=== PATIENT | female | born 1960 | race Caucasian/White ===

== ENCOUNTER 2020-04-19 11:34 | Inpatient (IN) | payer MEDICARE, MEDICAID, SELFPAY ==
[2020-04-19] VITALS (16 sets, daily range): BP systolic 117–161; BP diastolic 45–84; PULSE 56–95; RESP 14–26; TEMP 36.1–36.6; O2SAT 90–98; BMI 28.7
--- NOTE | ~2020-04-19 | XR_ITS ---
EXAMINATION: XR chest 1V portable DATE: 04/19/2020 12:27 INDICATION: Shortness of breath. Weakness. TECHNIQUE: A single frontal view of the chest was obtained. COMPARISON: Chest 2 views 08/28/2019, chest CT 10/18/2012 FINDINGS: There are lucencies in the upper lungs, consistent with emphysema. No pleural effusion or p neumothorax. The heart size is normal. IMPRESSION: 1. Emphysema. Reviewed, dictated and finalized at location A. IMPRESSION: 1. Emphysema.
--- NOTE | 2020-04-19 11:46 | ECG_ITS ---
Measurements Intervals [place] Rate: 85 P: 74 VA: 142 QRS: 46 QRSD: 100 T: 52 QT: 339 QTc: 404 Interpretive Statements SINUS RHYTHM LOW QRS VOLTAGE IN PRECORDIAL LEADS BORDERLINE ECG Electronically Signed On 04-19-2020 15:27:36 CDT by Jovan Quintanilla D.O.
[2020-04-19 12:22] LABS: Basophils Absolute Auto 0.1 K/mm3 (0.0-0.1); Basophils Percent Auto 0.9 % (0.2-1.2); Eosinophils Absolute Auto 0.3 K/mm3 (0-0.3); Eosinophils Percent Auto 4.4 % (0-4.4); Hematocrit 33.4 % (37.0-47.0); Hemoglobin 10.9 g/dL (12.0-15.0); Immature Granulocyte Absolute 0.01 K/mm3 (0.00-0.031); Immature Granulocyte Percent A 0.1 % (0-0.5); Lymphocytes Absolute Auto 1.56 K/mm3 (0.9-3.2); Lymphocytes Percent Auto 23.1 % (18.3-44.2); Mean Corpuscular HGB Conc 32.6 g/dl (32-36); Mean Corpuscular Hemoglobin 31.1 pg (26-34); Mean Corpuscular Volume 95.2 fl (80-100); Mean Platelet Volume 10.5 fl (7.4-10.4); Monocytes Absolute Auto 0.8 K/mm3 (0.1-0.6); Monocytes Percent Auto 12.3 % (2.6-8.5); Neutrophils Percent Auto 59.2 % (45.5-73.1); Platelet Count Result 254 k/mm3 (150-375); Red Blood Count 3.51 M/mm3 (4.2-5.4); Red Cell Distribution Width 11.5 % (11.5-14.5); White Blood Count 6.8 K/mm3 (4.5-10.0)
[2020-04-19 12:32] LABS: Prothrombin Time 12.8 Seconds (11.1-14.7)
[2020-04-19 12:33] LABS: Partial Thromboplastin Time 25.8 SECONDS (22.3-36.8)
[2020-04-19 12:35] LABS: Lactic Acid Reflex 1.2 mmol/L (0.7-2.1)
[2020-04-19 12:56] LABS: Alanine Aminotransferase 18 U/L (4-35); Albumin Level 3.7 g/dL (3.5-5.1); Alkaline Phosphatase 122 U/L (38-126); Anion Gap 5 mmol/L (8-16); Aspartate Amino Transferase 28 U/L (14-36); Bilirubin,Total 0.1 mg/dL (0.2-1.3); Blood Urea Nitrogen 15 mg/dL (7-17); CRP 2.6 mg/dL (<1.0); Calcium 9.1 mg/dL (8.4-10.2); Carbon Dioxide 38 mmol/L (22-30); Chloride 88 mmol/L (98-107); Estimated CRCL calculation 85 ml/min; Estimated Glomerular Filt Rate > 60; Glucose 153 mg/dL (65-105); Potassium 4.1 mmol/L (3.4-5.0); Sodium 131 mmol/L (137-145)
[2020-04-19 13:12] LABS: Add Urine Microscopic? YES; Appearance Urine Cloudy (Clear); Bacteria Urine 2+ /hpf; Bilirubin Urine Negative (Negative); Blood Urine Negative (Negative); Color Urine Yellow (Yellow); Glucose Urine UA Negative (Negative); Ketones Urine Negative (Negative); Leukocyte Esterase Ur Trace LEU/UL (Negative); Nitrate Urine Positive (Negative); Protein Urine Negative (Negative); RBC Urine 0-2 /hpf (0-2); Specific Grav Ur 1.011 (1.001-1.035); Squamous Epithelial Cell Urine Rare /hpf (Few); Urobilinogen Urine Negative mg/dL (<2.0)
[2020-04-19] MEDS: ALBUTEROL SULFATE (*SP) INHALER 1 PUFF (13:47)
[2020-04-19] MEDS: ALBUTEROL SULFATE (*SP) AEROSOL 1 PUFF 2 PUFF INHALATION (13:48)
[2020-04-19] MEDS: methylPREDNISolone SOD SUCC 125 MG VIAL IV PUSH (14:12)
--- NOTE | 2020-04-19 14:15 | ED.GENADULT ---
HPI - General Adult General Chief complaint: Weakness Stated complaint: weakness/sob Source: patient History of Present Illness HPI narrative: Patient is a 59 y/o female complaining of mild SOB since yesterday. She states that SOB is worse with exertion. She also has some chest pressure and back pain. She feels weak. She denies any fever. Related Data Home Medications Medication Instructions Recorded Confirmed Anoro Ellipta 1 inh INHALATION DAILY 08/26/19 08/26/19 Xarelto 20 mg PO DAILY 08/26/19 08/26/19 albuterol sulfate 2 puff INHALATION Q6H PRN 08/26/19 08/26/19 albuterol sulfate 2.5 mg INHALATION QID 08/26/19 08/26/19 atorvastatin 20 mg PO HS 08/26/19 08/26/19 furosemide 40 mg PO DAILY 08/26/19 08/26/19 gabapentin 300 mg PO TID 08/26/19 08/26/19 hydrocodone-acetaminophen 1 tablet PO QID PRN 08/26/19 08/26/19 phenytoin sodium extended 100 mg PO TID 08/26/19 08/26/19 venlafaxine 150 mg PO DAILY 08/26/19 08/27/19 Allergies Allergy/AdvReac Type Severity Reaction Status Date / Time Penicillins Allergy Mild itching Verified 04/19/20 11:55 Review of Systems Constitutional: Constitutional: Denies chills, Denies fever(s), Denies headache(s) and Reports weakness Eyes: Eyes: Denies blurry vision ENT: Denies headache(s) and Denies neck pain Cardiovascular: Cardiovascular: Reports chest pain and Reports dyspnea Respiratory: Respiratory: Reports cough and Reports dyspnea Gastrointestinal: Gastrointestinal: Denies abdominal pain, Denies diarrhea, Denies nausea and Denies vomiting Genitourinary: Genitourinary: Denies hematuria and Denies dysuria Musculoskeletal: Musculoskeletal: Denies back pain and Denies neck pain Neurologic: Denies headache(s) and Reports weakness PMFSH Past Medical History Medical History Anxiety Arthritis Asthma CAD (coronary artery disease) COPD (chronic obstructive pulmonary disease) Dementia Depression Emphysema of lung HTN (hypertension) Peripheral neuropathy Pneumonia Seizures Surgical History Surgical History H/O section Family History Family History Other Acute myocardial infarction Cerebrovascular accident Diabetes mellitus Hypertension Social History Social History Smoking status: Current some day smoker Tobacco type: cigarettes Alcohol intake: never Substance use: never Substance use type: marijuana Gender identity (if verbalized by the patient): Female Spiritual care concerns: No Agree to blood products: No Exam Const: General: no acute distress and well developed Orientation/consciousness: oriented to person, oriented to place, oriented to time, patient oriented x3 and confusion HENMT: Head: normocephalic Ears: external ears normal General nose exam: Normal external nose present Eyes: General: appearance normal, both eyes and all related structures Conjunctivae: conjunctivae normal Neck: Neck: normal visual inspection and full ROM Chest: Chest palpation & inspection: normal inspection of the chest and no tenderness Resp: Effort & Inspection: normal respiratory effort Auscultation: wheezes Cardio: Rate: regular rate Rhythm: regular rhythm GI: GI Palp: No abdominal tenderness and Yes Soft to palpation Skin: General skin exam: normal color and turgor normal Neuro: General: oriented to person, oriented to place, oriented to time, patient oriented x3, confusion and other (slow to respond) Cognition (Neuro): normal cognition Extrem: General: normal to inspection, full ROM and no pedal edema Psych: Appearance: grossly normal Mental Status: mental status grossly normal Affect: normal affect Course Consultations Consultation #1: Discussed with LAWRENCE Samuel, who agrees to admit to Dr. Ngo. Date: 04/19/20 Time: 14:4
[2020-04-19 14:24] LABS: Alveolar/Arterial O2 Gradient 89.2 mmHg; Base Excess ABG 8.8 mEq/l (+/-2.0); Fractional Inspired Oxygen 36 %; HCO3 ABG 38.2 mEq/l (22.0-26.0); Oxygen Content ABG 15.7 %vol (16.0-22.0); Oxyhemoglobin 92.9 % THb (90.0-100.0); PO2 ABG 72.6 mmHg (80.0-100.0); PO2 FiO2 Ratio Arterial Blood 2.02 %
[2020-04-19 14:29] LABS: Device NASAL CANNULA; Modified Allen's Test Pass; PCO2 ABG 81.8 mmHg (35.0-45.0); Site Drawn RIGHT RADIAL; pH ABG 7.287 (7.350-7.450)
--- NOTE | 2020-04-19 15:15 | PC.NURSE ---
Pts daughters Ebony and Hailey called to inquire on pts status. Informed both that they were not on the list of people to notify so therefore I was unable to give any updates. Went into pts room and asked if I could talk to both Ebony and Hailey and pt shook her head yes. This RN called Ebony back and informed her of what was going on. Ebony can be reached at [phone]
--- NOTE | 2020-04-19 15:54 | PC.NURSE ---
Called to give report on pt. Was told by laboratory secretary that RN was in COVID room and will call me back when she is done.
--- NOTE | 2020-04-19 16:40 | ADMIMU ---
This patient, Mary Alice Hall, was admitted to IMU status, and placed in Intensive Care Unit-5. Patient/family oriented to hospital policies and general routines including ID bracelet, bed and alarms, visiting hours, pain management, procedures, bathroom and other care routines, personal items, smoking policy, room service/diet, and visiting hours. Valuables list has been completed. Information on how to activate the Rapid Response Team has been discussed. Patient/Family are encouraged to report perceived risks to care and to ask questions if they do not understand what they are told or what they should do.
--- NOTE | 2020-04-19 17:42 | PM.IMHP ---
H&P: HPI History of Present Illness Date/Time: 04/19/20 17:42 Chief complaint: acute respiratory failure/copd exacerbation Narrative: Mary Alice Hall is a 59 year old female Who has a history of COPD. She has chronic oxygen at home at 4 L per nasal cannula. The patient had her last admission here on 08/26/2019. With a COPD exacerbation and she had hypercapnia at that time. Looks like patient's CO2 level was always elevated. The patient was confused back then the patient had been treated with a BiPAP at that time and her arterial blood gases improved. She was then weaned off the BiPAP. The patient does have a BiPAP that she uses at home but stated she felt like she was drowning that has used it lately. She lives with her daughter. She stated she has been more short of breath since yesterday. She denies any fever chills. She is more short of breath with exertion. She said that she has been self isolating and has not had any exposure to COVID-19. However since the patient was short of breath she was checked for COVID-19 and admitted to ICU as a IMU overflow. Patient has significant expiratory wheezes. Her ABGs pH was 7.287. CO2 was 81.8. Her O2 was 72.6. She had been placed on a BiPAP and refuses to wear it. She has been very restless she stated that she cannot breathe without on. I discussed this with respiratory and they will just check ABGs here shortly. There was some question whether the patient could be on a BiPAP machine while she is being checked for COVID. The patient will need to be on a BiPAP machine and typically gets 1 when she comes in. Her chest x-ray does not resemble COVID and was read as emphysema. She does not have a fever or chills. She was given an inhaler treatment and Solu-Medrol in the emergency room. The patient is still somewhat confused. She woke up and ripped off her BiPAP machine I placed her back on 4.5 L. her O2 saturation is about 92%. She refuses to keep the BiPAP machine on. She said she does not remember coming to the hospital initially. She is sitting up in bed asking to watches certain TV show. She is asking for Tylenol and a drink water. She is talking in full sentences now. Date of service 04/19/2020 Review of Systems Review of Systems: All systems reviewed & are unremarkable except as noted in HPI and below Constitutional: Constitutional: Reports as per HPI and Reports no additional constitutional complaints Eyes: Eyes: Reports as per HPI and Reports no additional eye complaints ENT: Reports system reviewed and no additional complaints, except as documented and Reports Normal hearing present Cardiovascular: Cardiovascular: Reports no additional cardiovascular complaints Respiratory: Respiratory: Reports no additional respiratory complaints and Reports no additional respiratory complaints Gastrointestinal: Gastrointestinal: Reports as per HPI and Reports no additional gastrointestinal complaints Musculoskeletal: Musculoskeletal: Reports no additional musculoskeletal complaints Integumentary/Breasts: Skin/Breast: Reports system reviewed and no additional complaints, except as docu and Reports as per HPI Neurologic: Reports system reviewed and no additional complaints, except as documented, Reports as per HPI and Reports Normal hearing present Psychiatric: Psychiatric: Reports no additional psychiatric complaints and Reports as per HPI Endocrine: Endocrine: Reports no additional endocrine complaints Hematologic/Lymphatic: Hematologic/Lymphatic: Reports no additional hematologic/lymphatic complaints Allergic/Immunologic: Allergic/Immunologic: Reports no additional allergic/immunologic complaints ON LICENSE OF [facility] Past Medical History Medical History (Updated 04/19/20 @ 17:53 by Lizzie Cummings NP) Anxiety Arthritis Asthma CAD (coronary artery disease) COPD (chronic obstructive pulmonary disease) Dementia patient denies Depression Depression with anxiety Emphysema of lung His
[2020-04-19] MEDS: GABAPENTIN 300 MG CAPSULE PO (18:25)
[2020-04-19] MEDS: RIVAROXABAN 20 MG TABLET PO (18:25)
[2020-04-19] MEDS: ATORVASTATIN 20 MG TABLET PO (18:25)
[2020-04-19] MEDS: ALPRAZolam 0.5 MG TABLET PO ×2 (18:26→22:14)
[2020-04-19] MEDS: lisinopriL 20 MG TABLET PO (18:26)
[2020-04-19] MEDS: methylPREDNISolone SOD SUCC 125 MG VIAL 60 MG IV PUSH ×2 (18:28→23:36)
[2020-04-19 18:38] LABS: Alveolar/Arterial O2 Gradient 116.9 mmHg; Base Excess ABG 10.3 mEq/l (+/-2.0); Carboxyhemoglobin 0.7 % THb (0-2.0); Fractional Inspired Oxygen 36 %; HCO3 ABG 38.7 mEq/l (22.0-26.0); Methemoglobin ABG 0.1 %THb (0-1.5); Oxygen Content ABG 15.4 %vol (16.0-22.0); Oxyhemoglobin 88.2 % THb (90.0-100.0); PO2 ABG 55.3 mmHg (80.0-100.0); PO2 FiO2 Ratio Arterial Blood 1.54 %; Total Hemoglobin 12.4 g/dL (12.0-18.0); pH ABG 7.343 (7.350-7.450)
[2020-04-19 18:43] LABS: Oxygen Saturation ABG 85.7 % (95.0-100.0); PCO2 ABG 72.8 mmHg (35.0-45.0)
[2020-04-19 18:44] LABS: Device NASAL CANNULA; Modified Allen's Test Pass; Site Drawn RIGHT RADIAL
[2020-04-20] VITALS (12 sets, daily range): BP systolic 116–148; BP diastolic 57–95; PULSE 78–106; RESP 14–19; TEMP 36.2–36.9; O2SAT 89–98
[2020-04-20 04:32] LABS: Basophils Percent Auto 0.4 % (0.2-1.2); Hematocrit 36.8 % (37.0-47.0); Hemoglobin 12.1 g/dL (12.0-15.0); Immature Granulocyte Absolute 0.02 K/mm3 (0.00-0.031); Immature Granulocyte Percent A 0.4 % (0-0.5); Lymphocytes Absolute Auto 1.07 K/mm3 (0.9-3.2); Lymphocytes Percent Auto 19.2 % (18.3-44.2); Mean Corpuscular HGB Conc 32.9 g/dl (32-36); Mean Corpuscular Volume 94.4 fl (80-100); Mean Platelet Volume 10.1 fl (7.4-10.4); Monocytes Absolute Auto 0.1 K/mm3 (0.1-0.6); Monocytes Percent Auto 2.2 % (2.6-8.5); Neutrophils Absolute Auto 4.4 K/mm3 (1.3-6.7); Neutrophils Percent Auto 77.8 % (45.5-73.1); Platelet Count Result 281 k/mm3 (150-375); Red Cell Distribution Width 11.4 % (11.5-14.5); White Blood Count 5.6 K/mm3 (4.5-10.0)
[2020-04-20 05:09] LABS: Alanine Aminotransferase 29 U/L (4-35); Albumin Level 4.1 g/dL (3.5-5.1); Alkaline Phosphatase 154 U/L (38-126); Anion Gap 5 mmol/L (8-16); Aspartate Amino Transferase 41 U/L (14-36); Bilirubin,Total 0.2 mg/dL (0.2-1.3); Blood Urea Nitrogen 19 mg/dL (7-17); CRP 2.7 mg/dL (<1.0); Calcium 9.5 mg/dL (8.4-10.2); Carbon Dioxide 39 mmol/L (22-30); Chloride 88 mmol/L (98-107); Estimated CRCL calculation 74 ml/min; Estimated Glomerular Filt Rate > 60; Glucose 125 mg/dL (65-105); Magnesium 2.1 mg/dL (1.6-2.3); Potassium 5.1 mmol/L (3.4-5.0); Sodium 132 mmol/L (137-145)
[2020-04-20] MEDS: methylPREDNISolone SOD SUCC 125 MG VIAL 60 MG IV PUSH ×3 (05:14→17:37)
[2020-04-20] MEDS: ALPRAZolam 0.5 MG TABLET PO ×3 (05:55→17:13)
[2020-04-20 06:02] LABS: Base Excess ABG 8.6 mEq/l (+/-2.0); Carboxyhemoglobin 0.3 % THb (0-2.0); Fractional Inspired Oxygen 45 %; HCO3 ABG 35.6 mEq/l (22.0-26.0); Methemoglobin ABG 0.1 %THb (0-1.5); Oxygen Content ABG 15.8 %vol (16.0-22.0); Oxygen Saturation ABG 93.1 % (95.0-100.0); Oxyhemoglobin 93.5 % THb (90.0-100.0); PO2 ABG 69.2 mmHg (80.0-100.0); PO2 FiO2 Ratio Arterial Blood 1.54 %; Reduced Hemoglobin 6.1 %THb (0-5.0); pH ABG 7.382 (7.350-7.450)
[2020-04-20 06:04] LABS: Device BIPAP; Expiratory Pressure 5 cmH2O; Inspiratory Pressure 12 cmH2O; Modified Allen's Test Pass; PCO2 ABG 61.2 mmHg (35.0-45.0); Site Drawn RIGHT RADIAL
[2020-04-20 07:15] LABS: Thyroid Stimulating Hormone Reflex 0.169 uIU/mL (0.465-4.68)
[2020-04-20] MEDS: PHENYTOIN SODIUM 100 MG CAP PO ×3 (08:15→17:00)
[2020-04-20] MEDS: ATORVASTATIN 20 MG TABLET PO (08:15)
[2020-04-20] MEDS: VENLAFAXINE HCL XR 75 MG CAP.ER.24H 150 MG PO (08:15)
[2020-04-20] MEDS: lisinopriL 20 MG TABLET PO (08:15)
[2020-04-20] MEDS: GABAPENTIN 300 MG CAPSULE PO ×3 (08:15→17:01)
[2020-04-20] MEDS: lamoTRIgine 100 MG TABLET PO ×2 (08:15→17:01)
[2020-04-20] MEDS: FUROSEMIDE 40 MG TABLET PO (08:16)
[2020-04-20 08:51] LABS: Free T4 Free Thyroxine Reflex 1.02 ng/dL (0.78-2.19)
[2020-04-20 10:28] LABS: Total Triiodothyronine (T3) 0.91 NG/ML (0.97-1.69)
[2020-04-20 12:10] LABS: SARS-CoV-2 RNA PCR Negative
--- NOTE | 2020-04-20 15:24 | PC.NURSE ---
1510-PATIENT TRANSFERRED TO ROOM 340 PER WHEELCHAIR WITHOUT DIFFICULTIES. REPORT GIVEN TO ANJEL ZAFAR. ALL QUESTIONS ANSWERED. BELONGINGS WITH PATIENT.
--- NOTE | 2020-04-20 16:21 | PM.IMPN ---
Progress Note: A&P Assessment and Plan (1) Acute exacerbation of chronic obstructive pulmonary disease (COPD): Code(s): J44.1 - Chronic obstructive pulmonary disease with (acute) exacerbation Status: Acute Assessment and Plan: as soon as patient is cleared from COVID we need to start nebulizer treatments on the patient. She has hypercapnia and uses a BiPAP machine at home. The patient will not allow was supported on her at this time she started coughing and became very anxious. she is in isolation at this point. We will continue with Solu-Medrol and inhalers. 04/20/20 16:21 patient is 59-year-old female with history of COPD hypercapnic respiratory failure,and chronic respiratory failure on home oxygen presented emergency department with a complaint of worsening shortness of breath and requiring more oxygen with exertion, there was concern the patient may be positive for COVID-19 and initially was admitted in ICU under IMU to rule out COVID-19, patient COVID-19 is negative, most likely patient has exacerbation of COPD, was started on Solu-Medrol any inhaler, at present time patient states feeling little better compared to when she arrived, denies any chest pain shortness of breath palpitation fever or chills, since patient COVID-19 is negative will start the patient on albuterol and Atrovent nebs will continue to monitor and further recommendation to follow as her symptoms improved will taper her Solu-Medrol (2) Depression with anxiety: Code(s): F41.8 - Other specified anxiety disorders Status: Chronic Assessment and Plan: She is on Xanax at home and Effexor (3) Acute and chronic respiratory failure with hypercapnia: Code(s): J96.22 - Acute and chronic respiratory failure with hypercapnia Status: Acute Assessment and Plan: We will repeat her ABGs. The patient would not leave her BiPAP on she felt like she was rounding when she started to cough. (4) Hyperlipidemia: Code(s): E78.5 - Hyperlipidemia, unspecified Status: Chronic Assessment and Plan: Continue with Lipitor. (5) Tobacco dependence: Code(s): F17.200 - Nicotine dependence, unspecified, uncomplicated Status: Acute Assessment and Plan: I have spent approximately 10 minutes advising the patient on the reasons why she should stop smoking. Patient has been made aware. (6) Chronic anemia: Code(s): D64.9 - Anemia, unspecified Status: Acute Assessment and Plan: Her H&H is much improved from her last visit. Continue to monitor. (7) Seizure disorder: Code(s): G40.909 - Epilepsy, unspecified, not intractable, without status epilepticus Status: Acute Assessment and Plan: Patient is on Lamictal and FENA joint. (8) Chronic diastolic heart failure: Code(s): I50.32 - Chronic diastolic (congestive) heart failure Status: Chronic Assessment and Plan: Continue with Lasix and lisinopril. (9) HTN (hypertension): Code(s): I10 - Essential (primary) hypertension Status: Chronic Assessment and Plan: Continue with lisinopril and Lasix. Subjective Date/time seen: 04/20/20 16:21 patient is 59-year-old female with history of COPD hypercapnic respiratory failure,and chronic respiratory failure on home oxygen presented emergency department with a complaint of worsening shortness of breath and requiring more oxygen with exertion, there was concern the patient may be positive for COVID-19 and initially was admitted in ICU under IMU to rule out COVID-19, patient COVID-19 is negative, most likely patient has exacerbation of COPD, was started on Solu-Medrol any inhaler, at present time patient states feeling little better compared to when she arrived, denies any chest pain shortness of breath palpitation fever or chills, since patient COVID-19 is negative will start the patient on albuterol and Atrovent nebs will continue
[2020-04-20] MEDS: RIVAROXABAN 20 MG TABLET PO (17:01)
[2020-04-21] VITALS (9 sets, daily range): BP systolic 114–168; BP diastolic 64–78; PULSE 85–107; RESP 16–20; TEMP 36–36.2; O2SAT 95–99
[2020-04-21] MEDS: methylPREDNISolone SOD SUCC 125 MG VIAL 60 MG IV PUSH ×2 (00:08→05:33)
[2020-04-21] MEDS: ALPRAZolam 0.5 MG TABLET PO ×4 (00:08→23:56)
[2020-04-21 08:42] LABS: Hematocrit 34.6 % (37.0-47.0); Hemoglobin 11.5 g/dL (12.0-15.0); Mean Corpuscular HGB Conc 33.2 g/dl (32-36); Mean Corpuscular Hemoglobin 31.5 pg (26-34); Mean Corpuscular Volume 94.8 fl (80-100); Mean Platelet Volume 10.3 fl (7.4-10.4); Platelet Count Result 287 k/mm3 (150-375); Red Blood Count 3.65 M/mm3 (4.2-5.4); Red Cell Distribution Width 11.7 % (11.5-14.5); White Blood Count 8.3 K/mm3 (4.5-10.0)
[2020-04-21] MEDS: VENLAFAXINE HCL XR 75 MG CAP.ER.24H 150 MG PO (08:56)
[2020-04-21] MEDS: ATORVASTATIN 20 MG TABLET PO (08:56)
[2020-04-21] MEDS: lamoTRIgine 100 MG TABLET PO ×2 (08:57→16:54)
[2020-04-21] MEDS: PHENYTOIN SODIUM 100 MG CAP PO ×3 (08:57→16:54)
[2020-04-21] MEDS: GABAPENTIN 300 MG CAPSULE PO ×3 (08:57→16:54)
[2020-04-21] MEDS: lisinopriL 20 MG TABLET PO (08:57)
[2020-04-21 09:00] LABS: Potassium 4.6 mmol/L (3.4-5.0)
[2020-04-21 09:03] LABS: Anion Gap 9 mmol/L (8-16); Blood Urea Nitrogen 21 mg/dL (7-17); Calcium 8.7 mg/dL (8.4-10.2); Carbon Dioxide 33 mmol/L (22-30); Chloride 88 mmol/L (98-107); Estimated CRCL calculation 86 ml/min; Estimated Glomerular Filt Rate > 60; Glucose 285 mg/dL (65-105); Sodium 130 mmol/L (137-145)
[2020-04-21] MEDS: guaiFENesin 12 HR 600 MG TABCR PO ×2 (12:53→21:41)
[2020-04-21] MEDS: BENZONATATE 100 MG CAPSULE 200 MG PO ×2 (12:53→16:54)
[2020-04-21] MEDS: FUROSEMIDE 40 MG TABLET PO (12:53)
[2020-04-21] MEDS: methylPREDNISolone SOD SUCC 40 MG VIAL IV PUSH ×3 (12:54→23:55)
--- NOTE | 2020-04-21 13:18 | PM.IMPN ---
Progress Note: A&P Assessment and Plan (1) Acute exacerbation of chronic obstructive pulmonary disease (COPD): Code(s): J44.1 - Chronic obstructive pulmonary disease with (acute) exacerbation Status: Acute Assessment and Plan: as soon as patient is cleared from COVID we need to start nebulizer treatments on the patient. She has hypercapnia and uses a BiPAP machine at home. The patient will not allow was supported on her at this time she started coughing and became very anxious. she is in isolation at this point. We will continue with Solu-Medrol and inhalers. 04/21/20 13:18 patient is 59-year-old female with history of COPD hypercapnic respiratory failure,and chronic respiratory failure on home oxygen presented emergency department with a complaint of worsening shortness of breath and requiring more oxygen with exertion, there was concern the patient may be positive for COVID-19 and initially was admitted in ICU under IMU to rule out COVID-19, patient COVID-19 is negative, most likely patient has exacerbation of COPD, was started on Solu-Medrol any inhaler, at present time patient states feeling little better compared to when she arrived, denies any chest pain shortness of breath palpitation fever or chills, since patient COVID-19 is negative will start the patient on albuterol and Atrovent nebs, as well as Pulmicort, will taper patient Solu-Medrol from 60 mg q.6 to 40 mg q.6 and taper is her symptoms improve, will continue to monitor and further recommendation to follow, will have a PT OT evaluate the patient (2) Depression with anxiety: Code(s): F41.8 - Other specified anxiety disorders Status: Chronic Assessment and Plan: She is on Xanax at home and Effexor (3) Acute and chronic respiratory failure with hypercapnia: Code(s): J96.22 - Acute and chronic respiratory failure with hypercapnia Status: Acute Assessment and Plan: We will repeat her ABGs. The patient would not leave her BiPAP on she felt like she was rounding when she started to cough. (4) Hyperlipidemia: Code(s): E78.5 - Hyperlipidemia, unspecified Status: Chronic Assessment and Plan: Continue with Lipitor. (5) Tobacco dependence: Code(s): F17.200 - Nicotine dependence, unspecified, uncomplicated Status: Acute Assessment and Plan: I have spent approximately 10 minutes advising the patient on the reasons why she should stop smoking. Patient has been made aware. (6) Chronic anemia: Code(s): D64.9 - Anemia, unspecified Status: Acute Assessment and Plan: Her H&H is much improved from her last visit. Continue to monitor. (7) Seizure disorder: Code(s): G40.909 - Epilepsy, unspecified, not intractable, without status epilepticus Status: Acute Assessment and Plan: Patient is on Lamictal and FENA joint. (8) Chronic diastolic heart failure: Code(s): I50.32 - Chronic diastolic (congestive) heart failure Status: Chronic Assessment and Plan: Continue with Lasix and lisinopril. (9) HTN (hypertension): Code(s): I10 - Essential (primary) hypertension Status: Chronic Assessment and Plan: Continue with lisinopril and Lasix. Subjective Date/time seen: 04/21/20 13:18 patient is 59-year-old female with history of COPD hypercapnic respiratory failure,and chronic respiratory failure on home oxygen presented emergency department with a complaint of worsening shortness of breath and requiring more oxygen with exertion, there was concern the patient may be positive for COVID-19 and initially was admitted in ICU under IMU to rule out COVID-19, patient COVID-19 is negative, most likely patient has exacerbation of COPD, was started on Solu-Medrol any inhaler, at present time patient states feeling little better compared to when she arrived, denies any chest pain shortness of breath palpitation fever or chil
[2020-04-21] MEDS: IPRATROPIUM BR 0.02% INH SOLN 0.5 MG/2.5 ML VIAL INHALATION ×2 (16:30→20:34)
[2020-04-21] MEDS: ALBUTEROL SULFATE NEB 2.5 MG/0.5 ML INH INHALATION ×2 (16:30→20:34)
[2020-04-21] MEDS: RIVAROXABAN 20 MG TABLET PO (16:54)
[2020-04-21] MEDS: BUDESONIDE RESPULE NEB 0.5 MG/2 ML AMP INHALATION (20:34)
[2020-04-22] VITALS (10 sets, daily range): BP systolic 131–137; BP diastolic 65–68; PULSE 70–88; RESP 13–23; TEMP 36.1–36.2; O2SAT 93–97
[2020-04-22] MEDS: ALBUTEROL SULFATE NEB 2.5 MG/0.5 ML INH INHALATION ×4 (00:20→12:50)
[2020-04-22] MEDS: IPRATROPIUM BR 0.02% INH SOLN 0.5 MG/2.5 ML VIAL INHALATION ×3 (04:59→12:50)
[2020-04-22] MEDS: methylPREDNISolone SOD SUCC 40 MG VIAL IV PUSH (05:31)
[2020-04-22 06:15] LABS: Hematocrit 32.5 % (37.0-47.0); Hemoglobin 10.6 g/dL (12.0-15.0); Mean Corpuscular HGB Conc 32.6 g/dl (32-36); Mean Platelet Volume 10.1 fl (7.4-10.4); Platelet Count Result 260 k/mm3 (150-375); Red Blood Count 3.42 M/mm3 (4.2-5.4); Red Cell Distribution Width 11.6 % (11.5-14.5); White Blood Count 8.3 K/mm3 (4.5-10.0)
[2020-04-22 06:26] LABS: Anion Gap 8 mmol/L (8-16); Blood Urea Nitrogen 26 mg/dL (7-17); Calcium 8.3 mg/dL (8.4-10.2); Carbon Dioxide 33 mmol/L (22-30); Chloride 86 mmol/L (98-107); Estimated CRCL calculation 85 ml/min; Estimated Glomerular Filt Rate > 60; Glucose 122 mg/dL (65-105); Potassium 5.1 mmol/L (3.4-5.0); Sodium 127 mmol/L (137-145)
[2020-04-22] MEDS: BENZONATATE 100 MG CAPSULE 200 MG PO ×2 (08:16→12:28)
[2020-04-22] MEDS: ATORVASTATIN 20 MG TABLET PO (08:16)
[2020-04-22] MEDS: lisinopriL 20 MG TABLET PO (08:17)
[2020-04-22] MEDS: guaiFENesin 12 HR 600 MG TABCR PO (08:17)
[2020-04-22] MEDS: lamoTRIgine 100 MG TABLET PO (08:17)
[2020-04-22] MEDS: FUROSEMIDE 40 MG TABLET PO (08:17)
[2020-04-22] MEDS: GABAPENTIN 300 MG CAPSULE PO ×2 (08:17→12:27)
[2020-04-22] MEDS: VENLAFAXINE HCL XR 75 MG CAP.ER.24H 150 MG PO (08:17)
[2020-04-22] MEDS: PHENYTOIN SODIUM 100 MG CAP PO ×2 (08:17→12:27)
[2020-04-22] MEDS: ALPRAZolam 0.5 MG TABLET PO ×2 (08:20→15:52)
[2020-04-22] MEDS: BUDESONIDE RESPULE NEB 0.5 MG/2 ML AMP INHALATION (08:50)
[2020-04-22 11:33] LABS: Anion Gap 7 mmol/L (8-16); Blood Urea Nitrogen 27 mg/dL (7-17); Calcium 8.6 mg/dL (8.4-10.2); Carbon Dioxide 34 mmol/L (22-30); Chloride 86 mmol/L (98-107); Estimated CRCL calculation 85 ml/min; Estimated Glomerular Filt Rate > 60; Glucose 116 mg/dL (65-105); Potassium 5.3 mmol/L (3.4-5.0); Sodium 127 mmol/L (137-145)
--- NOTE | 2020-04-22 11:38 | PCDIET ---
Dr Alicea notified of potassium 5.3, new orders
[2020-04-22] MEDS: NICOTINE (*PBKC) 21 MG PATCH 1 PATCH TRANSDERM (11:47)
[2020-04-22] MEDS: SODIUM POLYSTYRENE SULFONONATE 15 GM/60 ML BTL PO (11:47)
[2020-04-22] MEDS: predniSONE 20 MG TABLET PO (11:48)
[2020-04-22 14:09] LABS: Potassium 4.6 mmol/L (3.4-5.0)
--- NOTE | 2020-04-22 14:37 | PM.DS ---
DS: Admitting Diagnosis Admitting Diagnosis Admitting Diagnosis: acute respiratory failure/copd exacerbation DS: Discharge Diagnosis Discharge Diagnosis (1) Acute exacerbation of chronic obstructive pulmonary disease (COPD): Code(s): J44.1 - Chronic obstructive pulmonary disease with (acute) exacerbation Status: Acute Assessment and Plan: as soon as patient is cleared from COVID we need to start nebulizer treatments on the patient. She has hypercapnia and uses a BiPAP machine at home. The patient will not allow was supported on her at this time she started coughing and became very anxious. she is in isolation at this point. We will continue with Solu-Medrol and inhalers. 04/21/20 13:18 patient is 59-year-old female with history of COPD hypercapnic respiratory failure,and chronic respiratory failure on home oxygen presented emergency department with a complaint of worsening shortness of breath and requiring more oxygen with exertion, there was concern the patient may be positive for COVID-19 and initially was admitted in ICU under IMU to rule out COVID-19, patient COVID-19 is negative, most likely patient has exacerbation of COPD, was started on Solu-Medrol any inhaler, at present time patient states feeling little better compared to when she arrived, denies any chest pain shortness of breath palpitation fever or chills, since patient COVID-19 is negative will start the patient on albuterol and Atrovent nebs, as well as Pulmicort, will taper patient Solu-Medrol from 60 mg q.6 to 40 mg q.6 and taper is her symptoms improve, will continue to monitor and further recommendation to follow, will have a PT OT evaluate the patient (2) Depression with anxiety: Code(s): F41.8 - Other specified anxiety disorders Status: Chronic Assessment and Plan: She is on Xanax at home and Effexor (3) Acute and chronic respiratory failure with hypercapnia: Code(s): J96.22 - Acute and chronic respiratory failure with hypercapnia Status: Acute Assessment and Plan: We will repeat her ABGs. The patient would not leave her BiPAP on she felt like she was rounding when she started to cough. (4) Hyperlipidemia: Code(s): E78.5 - Hyperlipidemia, unspecified Status: Chronic Assessment and Plan: Continue with Lipitor. (5) Tobacco dependence: Code(s): F17.200 - Nicotine dependence, unspecified, uncomplicated Status: Acute Assessment and Plan: I have spent approximately 10 minutes advising the patient on the reasons why she should stop smoking. Patient has been made aware. (6) Chronic anemia: Code(s): D64.9 - Anemia, unspecified Status: Acute Assessment and Plan: Her H&H is much improved from her last visit. Continue to monitor. (7) Seizure disorder: Code(s): G40.909 - Epilepsy, unspecified, not intractable, without status epilepticus Status: Acute Assessment and Plan: Patient is on Lamictal and FENA joint. (8) Chronic diastolic heart failure: Code(s): I50.32 - Chronic diastolic (congestive) heart failure Status: Chronic Assessment and Plan: Continue with Lasix and lisinopril. (9) HTN (hypertension): Code(s): I10 - Essential (primary) hypertension Status: Chronic Assessment and Plan: Continue with lisinopril and Lasix. DS: Summary Hospital Course Reason for hospitalization: Chief complaint: acute respiratory failure/copd exacerbation Narrative: Mary Alice Hall is a 59 year old female Who has a history of COPD. She has chronic oxygen at home at 4 L per nasal cannula. The patient had her last admission here on 08/26/2019. With a COPD exacerbation and she had hypercapnia at that time. Looks like patient's CO2 level was always elevated. The patient was confused back then the patient had been treated with a BiPAP at that time and her arterial blood gases improved. She w
== END 2020-04-22 16:32 | disposition home or self-care (01) | DRG 190 ==
LOC: ANHED 13:07 → ANHICU 16:53 → ANH3MED 04-22 10:34 → ANHICU 04-23 15:57
PROVIDERS: Family Medicine; Nurse Practitioner; Admitting Provider Family Medicine; Emergency Provider Emergency Medicine; PCP Internal Medicine; Visit Provider Family Medicine
DX: J43.9 Emphysema, unspecified (principal); J96.22 Acute and chronic respiratory failure with hypercapnia; I50.32 Chronic diastolic (congestive) heart failure; Z20.828 Contact with and (suspected) exposure to other viral communicable diseases; I11.0 Hypertensive heart disease with heart failure; F17.200 Nicotine dependence, unspecified, uncomplicated; F41.8 Other specified anxiety disorders; G40.909 Epilepsy, unspecified, not intractable, without status epilepticus; D64.9 Anemia, unspecified; E78.5 Hyperlipidemia, unspecified; M19.90 Unspecified osteoarthritis, unspecified site; F03.90 Unspecified dementia, unspecified severity, without behavioral disturbance, psychotic disturbance, mood disturbance, and anxiety; I25.10 Atherosclerotic heart disease of native coronary artery without angina pectoris; G62.9 Polyneuropathy, unspecified; Z99.81 Dependence on supplemental oxygen; Z86.718 Personal history of other venous thrombosis and embolism; Z79.01 Long term (current) use of anticoagulants
CPT/HCPCS: 36415; 36600; 51701; 71045; 80048; 80053; 81001; 82375; 82805; 83050; 83605; 83735; 84132; 84439; 84443; 84480; 85025; 85027; 85610; 85730; 86140; 87040; 87635; 93005; 94003; 94640; 96374; 97165; 99291; A9270; C9803; J2920; J2930; J7512; U0003

== ENCOUNTER 2020-05-13 20:57 | Inpatient (IN) | payer MEDICARE, MEDICAID, SELFPAY ==
--- NOTE | ~2020-05-13 | XR_ITS ---
XR chest 1V portable 05/17/2020 06:00 Indication: Respiratory failure Procedure: AP portable chest Comparison: Comparison to multiple prior studies sequentially, with oldest reviewed study dated 05/2020. Findings: Endotracheal tube tip 5 cm above the hector. NG tube in the stomach. Cardiomegaly with inte rstitial edema. No significant pleural effusion. No pneumothorax. No acute osseous abnormality. Impression: 1: Cardiomegaly with interstitial edema. Reviewed, dictated and finalized at location A. Impression: 1: Cardiomegaly with interstitial edema.
--- NOTE | ~2020-05-13 | XR_ITS ---
EXAMINATION: XR chest 1V portable EXAM DATE: 05/13/2020 21:55 INDICATION: Shortness of breath, drowsiness. TECHNIQUE: Portable AP frontal chest x-ray was obtained. Comparison is made to prior examination from 04/19/2020. FINDINGS: The lungs are clear. There are no pleural effusions. The cardiomediastinal silhouette is within normal limits. There is no pneumothorax suspected. The bones and soft tissues are unremarkab le. There is aortic arteriosclerosis. IMPRESSION: No acute cardiopulmonary findings. Reviewed, dictated and finalized at location A.
--- NOTE | ~2020-05-13 | XR_ITS ---
EXAMINATION: XR chest ET placement, XR abdomen NG/feed tube insert DATE: 05/14/2020 07:22 INDICATION: Endotracheal tube placement. Orogastric tube placement. TECHNIQUE: 1. AP view of the chest was obtained. 2. Supine AP view of the abdomen was obtained. COMPARISON: Chest radiograph dated 05/13/2020 FINDINGS: Chest: Endotracheal tube tip 3.8 cm above the hector. Lungs remain clear with no focal airspace opacities, p ulmonary edema, pleural effusion or pneumothorax. The cardiomediastinal silhouette is normal. ABDOMEN: Nasogastric tube tip in proximal side port in the body of the stomach. Normal amount of gas and stool scattered throughout the visualized colon. No dilated loops of gas-filled small bowel to suggest obs truction. IMPRESSION: 1. Endotracheal tube and nasogastric tube in expected positions. 2. No acute cardiopulmonary disease. Reviewed, dictated and finalized at location A. IMPRESSION: 1. Endotracheal tube and nasogastric tube in expected positions. 2. No acute cardiopulmonary disease.
--- NOTE | ~2020-05-13 | XR_ITS ---
EXAMINATION: XR chest ET placement EXAM DATE: 05/19/2020 01:16 INDICATION: Reintubation. TECHNIQUE: Portable AP frontal chest x-ray was obtained. Comparison is made to prior examination from 05/18/2020. FINDINGS: Endotracheal tube tip is 4 centimeters above the hector (ideal range is between 2 to 5 cm). There is a nasogastric tube seen with tip collimated off the study, but below the left hemidiaphrag m. No confluent consolidation, pneumothorax or pleural effusion suspected. There are no sizable pleura l effusions. There is no pneumothorax suspected. Cardiomediastinal silhouette is normal. The bon es and soft tissues are unremarkable. There is no significant interval change compared to prior exam . IMPRESSION: 1. Tubes in position. 2. No acute cardiopulmonary findings. Reviewed, dictated and finalized at location A.
--- NOTE | ~2020-05-13 | XR_ITS ---
XR chest 1V portable 05/16/2020 07:03 Indication: Hypercarbic respiratory failure. Procedure: AP portable chest Comparison: Comparison to multiple prior studies sequentially, with oldest reviewed study dated 04/19. Findings: Heart size normal for technique. NG tube in the stomach. Endotracheal tube tip 4.9 cm above the hector. There is bilateral symmetric interstitial opacification with peribronchial thickening. N o significant pleural effusion or pneumothorax. Impression: 1: Bilateral interstitial infiltrates which most likely represents edema. Pneumonia less favored. Reviewed, dictated and finalized at location A. Impression: 1: Bilateral interstitial infiltrates which most likely represents edema. Pneum onia less favored.
--- NOTE | ~2020-05-13 | XR_ITS ---
XR chest 1V portable DATE: 05/18/2020 05:57 INDICATION: Hypercarbic respiratory failure TECHNIQUE: Portable AP chest on 05/18/2020 at 0526 hours COMPARISON: 05/17/2020 portable AP chest at 0531 hours FINDINGS: ET tube tip in satisfactory position 3.7 cm above hector. A nasogastric tube is noted passi ng into the stomach. Heart size appears within normal range considering magnification associated with AP projection. Aorti c arch calcification. There is pulmonary vascular redistribution which may indicate mild pulmonary venous hypertension. No pulmonary consolidation or pleural effusion or pneumothorax. Diffuse osteopenia. IMPRESSION: ET and NG tubes in satisfactory position Prominent vascular redistribution may indicate mild pulmonary venous hypertension Aortic calcification Diffuse osteopenia Reviewed, dictated and finalized at location A. IMPRESSION: ET and NG tubes in satisfactory position Prominent vascular redistribution may indicate mild pulmonary venous hypertensi on Aortic calcification Diffuse osteopenia
--- NOTE | ~2020-05-13 | XR_ITS ---
EXAMINATION: XR chest 1V portable EXAM DATE: 05/20/2020 05:54 INDICATION: Intubated. TECHNIQUE: Portable AP frontal chest x-ray was obtained. Comparison is made to prior examination from 05/19/2020. FINDINGS: Endotracheal tube tip is 3 centimeters above the hector (ideal range is between 2 to 5 cm). There is a nasogastric tube seen with tip collimated off the study, but below the left hemidiaphrag m. No confluent consolidation, pneumothorax or pleural effusion suspected. There are no sizable pleura l effusions. There is no pneumothorax suspected. Cardiomediastinal silhouette is normal. The bon es and soft tissues are unremarkable. There is aortic arteriosclerosis. There is no significant inte rval change compared to prior exam. IMPRESSION: 1. Tubes in position. 2. No acute cardiopulmonary findings. Reviewed, dictated and finalized at location A.
--- NOTE | ~2020-05-13 | XR_ITS ---
EXAMINATION: XR chest 1V portable INDICATION: Acute hypercarbic respiratory failure TECHNIQUE: Portable AP chest at 0515 hours COMPARISON: 05/14/2020 FINDINGS: The endotracheal tube ends approximately 3.3 cm above the hector. The nasogastric tube is f ollowed as far as the stomach. Its tip is beyond the inferior margin of the radiograph. The lungs are free of acute opacities. There is no pleural effusion or pneumothorax. The cardiomediastinal silhoue tte is normal. IMPRESSION: 1. No acute cardiopulmonary abnormality. Reviewed, dictated and finalized at location B.
--- NOTE | ~2020-05-13 | XR_ITS ---
EXAMINATION: XR chest ET placement DATE: 05/18/2020 10:34 INDICATION: Endotracheal tube placement TECHNIQUE: frontal view of the chest was obtained. COMPARISON: Chest radiograph dated 05/18/2020 FINDINGS: Endotracheal tube tip 3.7 cm above the hector. Nasogastric tube extends below the left hemidiaphragm with distal tip collimated off the study. No focal airspace opacities, pleural effusion or pneumothorax. Increased perihilar and infrahilar pro minence of the interstitial pattern with bronchial wall thickening which could be due to bronchitis o r mild pulmonary edema. The cardiomediastinal silhouette is normal. IMPRESSION: 1. Mild perihilar pulmonary edema versus bronchitis. Reviewed, dictated and finalized at location A.
[2020-05-13 21:02] VITALS: BP 128/69; PULSE 100; RESP 20; TEMP 36.7; O2SAT 92
[2020-05-13 21:09] VITALS: PULSE 99
--- NOTE | 2020-05-13 21:20 | ED.SOB ---
HPI - SOB/Dyspnea General Chief Complaint: Shortness of Breath/Dyspnea Stated Complaint: AMS Time Seen by Provider: 05/13/20 21:19 History of Present Illness HPI Narrative: 59 w/ h/o COPD and dementia brought in from home by EMS for AMS. She was reportedly found minimally responsive. EMS gave narcan, which they thought caused some improvement. On arrival here she is somnolent. She will only stay awake and answer questions with vigorus stimulation. She denies any complaints, but does not seem to be a relieble historian. Related Data Home Medications Medication Instructions Recorded Confirmed Xarelto 20 mg PO DAILY 08/26/19 05/14/20 albuterol sulfate 2.5 mg INHALATION TID 08/26/19 05/14/20 gabapentin 200 mg PO TID 08/26/19 05/14/20 hydrocodone-acetaminophen 1 tablet PO TID PRN 08/26/19 05/14/20 phenytoin sodium extended 100 mg PO TID 08/26/19 05/14/20 venlafaxine [Effexor XR] 150 mg PO DAILY 08/26/19 05/14/20 alprazolam 0.5 mg PO QID PRN 04/19/20 05/14/20 atorvastatin 20 mg PO DAILY 04/19/20 05/14/20 lamotrigine 100 mg PO BID 04/19/20 05/14/20 Allergies Allergy/AdvReac Type Severity Reaction Status Date / Time Penicillins Allergy Mild itching Verified 05/13/20 22:13 Review of Systems Review of Systems: ROS unobtainable: Yes unobtainable due to mental status PMFSH Past Medical History Medical History Arthritis Asthma CAD (coronary artery disease) Chronic diastolic heart failure Chronic pain syndrome Chronic respiratory failure with hypoxia and hypercapnia Dementia patient denies Depression with anxiety Emphysema/COPD History of deep vein thrombosis on chronic anticoagulation with Xarelto HTN (hypertension) Hyperlipidemia Obstructive sleep apnea Peripheral neuropathy Pneumonia Seizures Tobacco dependence she is now using electronic cigarettes Surgical History Surgical History H/O section x2 Family History Family History Other Acute myocardial infarction Cerebrovascular accident Diabetes mellitus Hypertension Social History Social History Social History: She is disabled. She is . She lives with her daughter. Patient continues to smoke. The patient is reportedly a recovering alcoholic. However she has stated that multiple times in the past and then a day or 2 into her hospital stay develops alcohol withdrawal. Primary care physician: Dr. Sheldon Cantrell Code status: Full code durable power of component assembler: Daughter Smoking packs per day: 1 Smoking cigarettes per day: 20.0 Years smoked: 30 Smoking pack-years: 30.00 Smoking status: Current every day smoker Tobacco type: cigarettes and e-cigarettes/vaping Alcohol intake: former Alcohol use details: She is a recovering alcoholic. 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 Gender identity (if verbalized by the patient): Female Spiritual care concerns: No Agree to blood products: No Exam Const: General: ill appearing chronically Other: Somnolent. Not answering orientation questions. HENMT: Head: normal to inspection Eyes: Pupils: Equal, round and reactive pupils present Resp: Auscultation: diminished lung sounds Cardio: Rate: tachycardic Rhythm: regular rhythm GI: GI Palp: Yes Soft to palpation and No Tenderness to palpation present (GI) Skin: General skin exam: normal color Neuro: Speech: normal speech Other: Somnolent, but arousable. Moves all extreities. Does not answer orientation questions. Course Vital Signs Vital signs: Vital Signs Temperature 36.7 C 05/13/20 21:02 Pulse Rate 100 05/13/20 21:02 Respiratory Rate 20 05/13/20 21:02 Bloo
[2020-05-13 21:29] LABS: Basophils Absolute Auto 0.1 K/mm3 (0.0-0.1); Basophils Percent Auto 0.6 % (0.2-1.2); Eosinophils Absolute Auto 0.2 K/mm3 (0-0.3); Eosinophils Percent Auto 1.9 % (0-4.4); Hematocrit 37.9 % (37.0-47.0); Hemoglobin 11.8 g/dL (12.0-15.0); Immature Granulocyte Absolute 0.02 K/mm3 (0.00-0.031); Immature Granulocyte Percent A 0.2 % (0-0.5); Lymphocytes Absolute Auto 1.65 K/mm3 (0.9-3.2); Lymphocytes Percent Auto 16.6 % (18.3-44.2); Mean Corpuscular HGB Conc 31.1 g/dl (32-36); Mean Corpuscular Hemoglobin 30.8 pg (26-34); Mean Platelet Volume 9.9 fl (7.4-10.4); Monocytes Absolute Auto 1.2 K/mm3 (0.1-0.6); Monocytes Percent Auto 12.1 % (2.6-8.5); Neutrophils Absolute Auto 6.8 K/mm3 (1.3-6.7); Neutrophils Percent Auto 68.6 % (45.5-73.1); Platelet Count Result 231 k/mm3 (150-375); Red Blood Count 3.83 M/mm3 (4.2-5.4); Red Cell Distribution Width 11.9 % (11.5-14.5)
[2020-05-13 21:32] LABS: Alveolar/Arterial O2 Gradient 85.2 mmHg; Base Excess ABG 3.6 mEq/l (+/-2.0); Fractional Inspired Oxygen 36 %; HCO3 ABG 33.8 mEq/l (22.0-26.0); Oxygen Saturation ABG 90.8 % (95.0-100.0); Oxyhemoglobin 91.7 % THb (90.0-100.0); PO2 ABG 73.3 mmHg (80.0-100.0); PO2 FiO2 Ratio Arterial Blood 2.04 %; Total Hemoglobin 12.4 g/dL (12.0-18.0)
[2020-05-13 21:34] LABS: PCO2 ABG 84.6 mmHg (35.0-45.0); pH ABG 7.219 (7.350-7.450)
[2020-05-13 21:35] LABS: Device NASAL CANNULA; Modified Allen's Test Pass; Site Drawn RIGHT RADIAL
[2020-05-13 21:40] LABS: Prothrombin Time 12.9 Seconds (11.1-14.7)
[2020-05-13 21:41] LABS: Alanine Aminotransferase 20 U/L (4-35); Albumin Level 3.9 g/dL (3.5-5.1); Alkaline Phosphatase 151 U/L (38-126); Anion Gap 2 mmol/L (8-16); Aspartate Amino Transferase 28 U/L (14-36); Bilirubin,Total 0.4 mg/dL (0.2-1.3); Blood Urea Nitrogen 15 mg/dL (7-17); Calcium 8.9 mg/dL (8.4-10.2); Carbon Dioxide 37 mmol/L (22-30); Chloride 95 mmol/L (98-107); Estimated CRCL calculation 104 ml/min; Estimated Glomerular Filt Rate > 60; Glucose 127 mg/dL (65-105); Potassium 4.5 mmol/L (3.4-5.0); Sodium 134 mmol/L (137-145)
[2020-05-13 21:42] LABS: Ethanol < 10 mg/dL (<10)
[2020-05-13 21:45] VITALS: PULSE 99; RESP 25; O2SAT 94
[2020-05-13 22:19] VITALS: BP 133/103; PULSE 104; RESP 20; O2SAT 90
[2020-05-13 22:39] LABS: Add Urine Microscopic? YES; Appearance Urine Cloudy (Clear); Bacteria Urine 4+ /hpf; Bilirubin Urine Negative (Negative); Blood Urine Negative (Negative); Color Urine Yellow (Yellow); Glucose Urine UA Negative (Negative); Ketones Urine Negative (Negative); Leukocyte Esterase Ur Trace LEU/UL (Negative); Mucus Urine Rare /lpf; Nitrate Urine Negative (Negative); Protein Urine 1+ mg/dL (Negative); RBC Urine 0-2 /hpf (0-2); Specific Grav Ur 1.015 (1.001-1.035); Squamous Epithelial Cell Urine Rare /hpf (Few); Urobilinogen Urine Negative mg/dL (<2.0); WBC Urine 16-20 /hpf
[2020-05-13 22:56] LABS: Amphetamine Screen Urine Negative (Negative); Barbiturate Screen Urine Negative (Negative); Benzodiazepines Screen Urine Negative (Negative); Cannabinoid Screen Urine Positive (Negative); Cocaine Screen Urine Negative (Negative); Methadone Screen Urine Negative (Negative); Opiate Screen Urine Negative (Negative); Phencyclidine Screen Urine Negative (Negative)
[2020-05-13] MEDS: methylPREDNISolone SOD SUCC 125 MG VIAL IV PUSH (23:23)
[2020-05-13 23:30] VITALS: PULSE 89; RESP 22
[2020-05-13] MEDS: IPRATROPIUM BR 0.02% INH SOLN 0.5 MG/2.5 ML VIAL INHALATION (23:34)
[2020-05-13] MEDS: ALBUTEROL SULFATE NEB 2.5 MG/0.5 ML INH 5 MG INHALATION (23:34)
[2020-05-13 23:58] VITALS: PULSE 101; RESP 24; O2SAT 94
[2020-05-14] VITALS (38 sets, daily range): BP systolic 91–142; BP diastolic 55–92; PULSE 66–103; RESP 18–31; TEMP 36.2–37.2; O2SAT 83–100; BMI 29.0
--- NOTE | 2020-05-14 00:50 | ADMGEN ---
This patient, Mary Alice Hall, was admitted to IMU Room 232-01. Patient/family oriented to hospital policies and general routines including ID bracelet, bed and alarms, visiting hours, pain management, procedures, bathroom and other care routines, personal items, smoking policy, room service/diet, and visiting hours. Valuables list has been completed. Information on how to activate the Rapid Response Team has been discussed. Patient/Family are encouraged to report perceived risks to care and to ask questions if they do not understand what they are told or what they should do.
[2020-05-14] MEDS: ALBUTEROL SULFATE NEB 2.5 MG/0.5 ML INH 5 MG INHALATION ×4 (02:48→20:55)
[2020-05-14] MEDS: IPRATROPIUM BR 0.02% INH SOLN 0.5 MG/2.5 ML VIAL INHALATION ×4 (02:48→20:55)
[2020-05-14 03:19] LABS: Alveolar/Arterial O2 Gradient 86.3 mmHg; Base Excess ABG 7.4 mEq/l (+/-2.0); Carboxyhemoglobin 1.4 % THb (0-2.0); Fractional Inspired Oxygen 35 %; HCO3 ABG 37.4 mEq/l (22.0-26.0); Methemoglobin ABG 0.3 %THb (0-1.5); Oxygen Content ABG 16.4 %vol (16.0-22.0); Oxygen Saturation ABG 88.6 % (95.0-100.0); Oxyhemoglobin 90.9 % THb (90.0-100.0); PO2 ABG 65.1 mmHg (80.0-100.0); PO2 FiO2 Ratio Arterial Blood 1.86 %; Reduced Hemoglobin 7.4 %THb (0-5.0); Total Hemoglobin 12.8 g/dL (12.0-18.0)
[2020-05-14 03:22] LABS: pH ABG 7.264 (7.350-7.450)
[2020-05-14 03:23] LABS: Device BIPAP; Expiratory Pressure 8 cmH2O; Inspiratory Pressure 14 cmH2O; Modified Allen's Test Pass; PCO2 ABG 84.4 mmHg (35.0-45.0); Site Drawn RIGHT RADIAL
[2020-05-14 05:50] LABS: Base Excess ABG 4.8 mEq/l (+/-2.0); Carboxyhemoglobin 0.8 % THb (0-2.0); Fractional Inspired Oxygen 40 %; HCO3 ABG 34.7 mEq/l (22.0-26.0); Methemoglobin ABG 0.2 %THb (0-1.5); Oxygen Content ABG 16.4 %vol (16.0-22.0); Oxygen Saturation ABG 89.4 % (95.0-100.0); Oxyhemoglobin 91.6 % THb (90.0-100.0); PO2 ABG 67.9 mmHg (80.0-100.0); Reduced Hemoglobin 7.4 %THb (0-5.0); Total Hemoglobin 12.7 g/dL (12.0-18.0)
--- NOTE | 2020-05-14 05:51 | PM.IMHP ---
H&P: HPI History of Present Illness Date/Time: 05/14/20 05:51 Chief complaint: Acute on chronic respiratory failure with Narrative: Mary Alice Hall is a 59 year old female with a past medical history of COPD with chronic hypoxic respiratory failure, dementia, seizure disorder, diastolic heart failure and chronic anticoagulation who presented to the ER from home via EMS due to shortness of breath with low oxygen saturations and difficulty answering questions. the patient is on chronic narcotic therapy at home and received 4 mg of Narcan in the field with some improvement in her level of alertness at that time. At the time of my evaluation the patient would open her eyes to command. She would sit up in the bed. She was asking for food and asked us to call her daughter. However, right after that she fell asleep sitting forward in the bed. The patient was initially on settings of 14/8 with a rate of 4 on with 35% BiPAP from the ER. I adjusted the settings to 18/8 a 40% FiO2 with rate of 18. With BiPAP changes the patient was pulling tidal volumes between 450 and 550. She would still have occasional neck inefficient respirations but for the most part was pulling better tidal volumes. However repeat ABG 2 hours later demonstrated worsening pH with a slightly improved pCO2. But when I re-evaluated the patient the patient was reclined back in the bed with the head of the bed still at 35% and the patient was minimally responsive. Review of Systems Review of Systems: ROS unobtainable: Yes unobtainable due to medical condition ( Patient is encephalopathic due to CO2 retention and has dementia) [facility] Past Medical History Medical History (Updated 05/14/20 @ 08:03 by Nelsy Sampson DO) Arthritis Asthma CAD (coronary artery disease) Chronic diastolic heart failure Chronic pain syndrome Chronic respiratory failure with hypoxia and hypercapnia Dementia patient denies Depression with anxiety Emphysema/COPD History of deep vein thrombosis on chronic anticoagulation with Xarelto HTN (hypertension) Hyperlipidemia Obstructive sleep apnea Peripheral neuropathy Pneumonia Seizures Tobacco dependence she is now using electronic cigarettes Surgical History Surgical History (Updated 05/14/20 @ 07:32 by Nelsy Sampson DO) H/O section x2 Social History Social History (Updated 05/14/20 @ 07:56 by Nelsy Sampson DO) Social History: She is disabled. She is . She lives with her daughter. Patient continues to smoke. The patient is reportedly a recovering alcoholic. However she has stated that multiple times in the past and then a day or 2 into her hospital stay develops alcohol withdrawal. Primary care physician: Dr. Sheldon Cantrell Code status: Full code durable power of family law attorney: Daughter Smoking packs per day: 1 Smoking cigarettes per day: 20.0 Years smoked: 30 Smoking pack-years: 30.00 Smoking status: Current every day smoker Tobacco type: cigarettes and e-cigarettes/vaping Alcohol intake: former Alcohol use details: She is a recovering alcoholic. 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 Gender identity (if verbalized by the patient): Female Spiritual care concerns: No Agree to blood products: No Meds Home Medications and Allergies Home Medications Medication Instructions Recorded Confirmed Type Xarelto 20 mg PO DAILY 08/26/19 05/14/20 History albuterol sulfate 2.5 mg INHALATION TID 08/26/19 05/14/20 History furosemide 40 mg PO DAILY 08/26/19 05/14/20 History gabapentin 200 mg PO TID 08/26/19 05/14/20 History hydrocodone-acetaminophen 1 tablet PO TID PRN 08/26/19 05/14/20 History phenytoin sodium extended 100 mg PO TID 08/26/19 05/14/20 History venlafaxine [Effexor XR] 150 mg PO DAILY 08/26/19 05/14/20 History lisinopril 20 mg PO DAILY #60 tablet
[2020-05-14 05:52] LABS: pH ABG 7.244 (7.350-7.450)
[2020-05-14 05:53] LABS: Device NON-INVASIVE VENT; Modified Allen's Test Pass; Site Drawn RIGHT RADIAL
[2020-05-14 05:54] LABS: Non-Invasive Expiratory Pressure 10 CMH2O; Non-Invasive Inspiratory Pressure 18 CMH2O; Non-Invasive Vent Rate 18 /MIN
[2020-05-14] MEDS: methylPREDNISolone SOD SUCC 125 MG VIAL 60 MG IV PUSH ×3 (06:07→17:58)
[2020-05-14] MEDS: NALOXONE HCL 0.4 MG/ML VIAL (06:37)
--- NOTE | 2020-05-14 07:28 | PC.NURSE ---
at 0640 pt. transferred to ICU 6 to get intubated per Dr. Sampson s orders. Report given to Krys jay. rn made multiple calls to family with no answer from family. left messages.
[2020-05-14] MEDS: BUDESONIDE RESPULE NEB 0.5 MG/2 ML AMP INHALATION ×2 (08:01→20:58)
--- NOTE | 2020-05-14 08:12 | WPDPROCEDUR ---
Procedures Intubation Intubation Date: 05/14/20 Intubation Time: 06:50 A pre-procedural Time-Out was completed immediately before starting the procedure and confirmed: Patient Identification, Site, Procedure, Patient Position and the Availability of Requisite Equipment: Yes Sedative: etomidate Mg given: 40 Paralytic: succinylcholine Mg given: 80 Laryngoscope: fiber optic video scope ET tube size: 7.5 Tube secured depth (cm): 26 Tube secured location: teeth Tube placement confirmation: visualized tube passing through cords, equal breath sounds bilaterally, no breath sounds over epigastrium and confirmation by capnometry Patient tolerated procedure: well and no complications Intubation complications: none
[2020-05-14] MEDS: lamoTRIgine 100 MG TABLET FEED TUBE ×2 (09:17→15:52)
[2020-05-14 09:30] LABS: Base Excess ABG 5.7 mEq/l (+/-2.0); Carboxyhemoglobin 0.9 % THb (0-2.0); Fractional Inspired Oxygen 40 %; HCO3 ABG 33.1 mEq/l (22.0-26.0); Methemoglobin ABG 0.2 %THb (0-1.5); Oxygen Content ABG 16.1 %vol (16.0-22.0); Oxygen Saturation ABG 95.6 % (95.0-100.0); Oxyhemoglobin 95.2 % THb (90.0-100.0); PO2 FiO2 Ratio Arterial Blood 2.13 %; Reduced Hemoglobin 3.7 %THb (0-5.0)
[2020-05-14 09:31] LABS: PCO2 ABG 62.8 mmHg (35.0-45.0)
[2020-05-14] MEDS: PANTOPRAZOLE SODIUM IV 40 MG VIAL IV PUSH (09:31)
[2020-05-14 09:32] LABS: Arterial Blood Gas PEEP 5 cmH2O; Arterial Blood Gas Tidal Volume 300 ml; Arterial Blood Gas Vent Mode CMV; Arterial Blood Gas Ventilator rate 20 /MIN; Device VENTILATOR; Modified Allen's Test Pass; Site Drawn LEFT RADIAL
--- NOTE | 2020-05-14 11:54 | WPDCNINT ---
Assessment and Plan Assessment and plan (1) Acute and chronic respiratory failure with hypercapnia: Code(s): J96.22 - Acute and chronic respiratory failure with hypercapnia Status: Acute Assessment and Plan: acute on chronic respiratory failure with hypercapnia on ABGs, likely related to COPD exacerbation - chest x-ray and ABGs reviewed, ventilator much adjusted when I saw her in the ICU, repeat ABGs with improvement in respiratory acidosis and pCO2 levels - Continue albuterol and Atrovent nebulizer - continue ceftriaxone and azithromycin - continue steroids - sedated with fentanyl and Versed, maintain RASS of 0 to -2, daily sedation vacation (2) Acute exacerbation of chronic obstructive pulmonary disease (COPD): Code(s): J44.1 - Chronic obstructive pulmonary disease with (acute) exacerbation Status: Acute Assessment and Plan: continue mechanical ventilation, steroids and bronchodilators - chest x-ray and ABGs in a.m. (3) Seizure disorder: Code(s): G40.909 - Epilepsy, unspecified, not intractable, without status epilepticus Status: Acute Assessment and Plan: continue phenytoin, Lamictal (4) Chronic anticoagulation: Code(s): Z79.01 - FDC (current) use of anticoagulants Status: Acute Assessment and Plan: patient has a history of DVT, on rivaroxaban (5) HTN (hypertension): Code(s): I10 - Essential (primary) hypertension Status: Chronic Assessment and Plan: history of essential hypertension, Tylenol antihypertensive given patient intubated, on sedation with adequate blood pressures at this time (6) Depression with anxiety: Code(s): F41.8 - Other specified anxiety disorders Status: Chronic (7) DVT prophylaxis: Code(s): Z29.9 - Encounter for prophylactic measures, unspecified Status: Acute Assessment and Plan: DVT prophylaxis: on rivaroxaban stress ulcer prophylaxis: Protonix (8) Dietary counseling and surveillance: Code(s): Z71.3 - Dietary counseling and surveillance Status: Acute Assessment and Plan: will start tube feeds Additional Plan will discuss with family and updated them with patient's condition code status: Full code critical care time spent: 44 minutes Due to a high probability of clinically significant, life threatening deterioration, the patient required my highest level of preparedness to intervene emergently and I personally spent this critical care time directly and personally managing the patient. This critical care time included obtaining a history; examining the patient; pulse oximetry; ordering and review of studies; arranging urgent treatment with development of a management plan; evaluation of patient's response to treatment; frequent reassessment; and discussions with other providers. It was exclusive of separately billable procedures and treating other patients and teaching time. Please see Assessment and Plan section and the rest of the note for further information on patient assessment and treatment Termite Treater Consult Note Consult date: 05/14/20 Time Seen: 07:04 Reason for consult: acute on chronic hypercapnic respiratory failure, COPD exacerbation HPI: Mary Alice Hall is a 59 year old female with past medical history of COPD, on home oxygen, chronic respiratory failure, dementia, seizure disorder, diastolic heart failure on chronic anticoagulation, depression, anxiety, history of DVT on Xarelto, essential hypertension, hyperlipidemia obstructive sleep apnea, tobacco dependence presented the ED via EMS from home due to increasing shortness of breath low O2 sats and difficulty answering questions. Patient also has on chronic narcotic therapy received Narcan in the field with some improvement and level of alertness at that time. She was found to be in acute hypercapnic respiratory failure with elevated PCO2, placed on BiPAP, despite whic
[2020-05-14] MEDS: PHENYTOIN SODIUM INJ 100 MG/2 ML VIAL (*BKC) IV PUSH ×2 (12:47→21:57)
--- NOTE | 2020-05-14 15:46 | PM.IMPN ---
Progress Note: A&P Assessment and Plan (1) Acute and chronic respiratory failure with hypercapnia: Code(s): J96.22 - Acute and chronic respiratory failure with hypercapnia Status: Acute Assessment and Plan: the patient had worsening respiratory status. Despite multiple re-evaluations and BiPAP adjustments the patient ultimately required intubation. Patient was intubated at 0652 after RSI. Patient has a 7.5 ET tube measuring 26 at the lip. Patient has been placed on ventilator Tidal volume of 300 peep of 5 rate of 20 with FiO2 of 40% wean per anesthesiology fellow (2) Acute exacerbation of chronic obstructive pulmonary disease (COPD): Code(s): J44.1 - Chronic obstructive pulmonary disease with (acute) exacerbation Status: Acute Assessment and Plan: patient has been initiated on Solu-Medrol at 60 mg Q 6 hours and scheduled nebulizer treatments with albuterol and Atrovent. Given the decline in the patient's pulmonary status Rocephin and azithromycin for empiric antibiotic coverage. were added (3) Chronic anticoagulation: Code(s): Z79.01 - half-way (current) use of anticoagulants Status: Acute Assessment and Plan: Continue Xarelto per OG tube. with history of DVT (4) HTN (hypertension): Code(s): I10 - Essential (primary) hypertension Status: Chronic Assessment and Plan: blood blood pressure adequate without ANIKA-inhibitor continue to hold at present time (5) Seizure disorder: Code(s): G40.909 - Epilepsy, unspecified, not intractable, without status epilepticus Status: Acute Assessment and Plan: continue gabapentin and phenytoin Subjective Date/time seen: 05/14/20 15:46 Interval history: date of visit 05/14. 59-year-old white female with COPD on home oxygen presented with altered mental status and increasing shortness of breath. Found to be in acute on chronic respiratory failure had to be intubated and transferred to the ICU. Presently sedated and mechanically ventilated Exam Narrative: Exam Narrative: PHYSICAL EXAM: blood pressure 110/70 pulse is 80 saturating 92% on ventilator at 40% FiO2 with 5 of peep General: chronically ill-appearing, appears older than stated age, HEENT: neck is supple and no bruits, pupils equal in sclera anicteric Respiratory: markedly decreased breath sounds, barrel-chested, following intubation equal breath sounds Cardiovascular: regular rate, regular rhythm, 2+ bilateral radial pedal pulses Gastrointestinal: soft, nontender, nondistended, positive bowel sounds Skin: , non jaundice Musculoskeletal: no edema, Neurological: sedated Psychiatric: encephalopathic, uncooperative, pulling at mass : incontinent of urine, normal external genitalia, Martínez catheter now in place Objective Data Vital Signs Vital Signs: Vital Signs - 24 hr 05/13/20 21:02 05/13/20 21:09 05/13/20 21:45 Temperature 36.7 C Pulse Rate 100 99 99 Respiratory Rate 20 25 H Blood Pressure 128/69 Pulse Oximetry 92 94 05/13/20 22:19 05/13/20 23:30 05/13/20 23:58 Temperature Pulse Rate 104 H 89 101 H Respiratory Rate 20 22 H 24 H Blood Pressure 133/103 H Pulse Oximetry 90 94 05/14/20 00:22 05/14/20 00:43 05/14/20 01:13 Temperature 36.4 C L Pulse Rate 97 103 H 100 Respiratory Rate 18 31 H 22 H Blood Pressure 138/69 114/71 Pulse Oximetry 91 94 95 05/14/20 01:51 05/14/20 02:00 05/14/20 02:51 Temperature Pulse Rate 98 98 100 Respiratory Rate 23 H Blood Pressure Pulse Oximetry 95 05/14/20 02:58 05/14/20 03:47 05/14/20 04:00 Temperature Pulse Rate 103 H 99 92 Respiratory Rate 28 H 18 20 Blood Pressure Pulse Oximetry 94 91 05/14/20 04:03 05/14/20 06:00 05/14/20 06:18 Temperature 36.3 C L Pulse Rate 92 96 96 Respiratory Rate 20 28 H Blood Pressure 142/67 H Pulse Oximetry 95 94 05/14/20 07:00 05/14/20 07:09 05/14/20 07:14 Temperature
[2020-05-14] MEDS: RIVAROXABAN 20 MG TABLET FEED TUBE (15:52)
[2020-05-15] VITALS (36 sets, daily range): BP systolic 99–168; BP diastolic 50–82; PULSE 65–117; RESP 20–24; TEMP 36.6–37.3; O2SAT 77–100
[2020-05-15] MEDS: methylPREDNISolone SOD SUCC 125 MG VIAL 60 MG IV PUSH ×4 (00:02→17:22)
[2020-05-15] MEDS: IPRATROPIUM BR 0.02% INH SOLN 0.5 MG/2.5 ML VIAL INHALATION ×5 (02:26→23:32)
[2020-05-15] MEDS: ALBUTEROL SULFATE NEB 2.5 MG/0.5 ML INH 5 MG INHALATION ×6 (02:26→23:32)
[2020-05-15 04:24] LABS: Basophils Percent Auto 0.2 % (0.2-1.2); Eosinophils Percent Auto 0.1 % (0-4.4); Hematocrit 32.5 % (37.0-47.0); Hemoglobin 10.3 g/dL (12.0-15.0); Immature Granulocyte Absolute 0.03 K/mm3 (0.00-0.031); Immature Granulocyte Percent A 0.3 % (0-0.5); Lymphocytes Absolute Auto 1.02 K/mm3 (0.9-3.2); Lymphocytes Percent Auto 11.1 % (18.3-44.2); Mean Corpuscular HGB Conc 31.7 g/dl (32-36); Mean Corpuscular Hemoglobin 30.3 pg (26-34); Mean Corpuscular Volume 95.6 fl (80-100); Mean Platelet Volume 10.5 fl (7.4-10.4); Monocytes Absolute Auto 0.4 K/mm3 (0.1-0.6); Monocytes Percent Auto 4.7 % (2.6-8.5); Neutrophils Absolute Auto 7.7 K/mm3 (1.3-6.7); Neutrophils Percent Auto 83.6 % (45.5-73.1); Platelet Count Result 220 k/mm3 (150-375); Red Cell Distribution Width 11.7 % (11.5-14.5); White Blood Count 9.2 K/mm3 (4.5-10.0)
[2020-05-15 04:36] LABS: Alveolar/Arterial O2 Gradient 223.5 mmHg; Base Excess ABG 8.3 mEq/l (+/-2.0); Carboxyhemoglobin 1.3 % THb (0-2.0); Fractional Inspired Oxygen 55 %; HCO3 ABG 38.3 mEq/l (22.0-26.0); Methemoglobin ABG 0.3 %THb (0-1.5); Oxygen Saturation ABG 94.8 % (95.0-100.0); Oxyhemoglobin 94.2 % THb (90.0-100.0); PO2 FiO2 Ratio Arterial Blood 1.51 %; Reduced Hemoglobin 4.2 %THb (0-5.0); Total Hemoglobin 16.6 g/dL (12.0-18.0); pH ABG 7.315 (7.350-7.450)
[2020-05-15 04:40] LABS: Device VENTILATOR; Modified Allen's Test Pass; Site Drawn RIGHT RADIAL
[2020-05-15 04:41] LABS: Arterial Blood Gas PEEP 5 cmH2O; Arterial Blood Gas Tidal Volume 300 ml; Arterial Blood Gas Vent Mode CMV; Arterial Blood Gas Ventilator rate 20 /MIN
[2020-05-15 05:22] LABS: Anion Gap 4 mmol/L (8-16); Blood Urea Nitrogen 29 mg/dL (7-17); Calcium 8.6 mg/dL (8.4-10.2); Carbon Dioxide 36 mmol/L (22-30); Chloride 92 mmol/L (98-107); Estimated CRCL calculation 82 ml/min; Estimated Glomerular Filt Rate > 60; Glucose 156 mg/dL (65-105); Magnesium 2.1 mg/dL (1.6-2.3); Phosphorus 3.3 mg/dL (2.5-4.5); Potassium 4.8 mmol/L (3.4-5.0); Sodium 132 mmol/L (137-145)
[2020-05-15] MEDS: PHENYTOIN SODIUM INJ 100 MG/2 ML VIAL (*BKC) IV PUSH ×3 (06:14→21:03)
[2020-05-15] MEDS: BUDESONIDE RESPULE NEB 0.5 MG/2 ML AMP INHALATION ×2 (08:14→20:07)
[2020-05-15] MEDS: lamoTRIgine 100 MG TABLET FEED TUBE ×2 (08:34→17:22)
[2020-05-15] MEDS: ALBUTEROL SULFATE NEB 2.5 MG/0.5 ML INH 20 MG INHALATION (09:04)
[2020-05-15] MEDS: methylPREDNISolone SOD SUCC 125 MG VIAL IV PUSH (09:06)
[2020-05-15] MEDS: PANTOPRAZOLE SODIUM IV 40 MG VIAL IV PUSH (09:42)
--- NOTE | 2020-05-15 11:47 | PCDIET ---
Nutrition Follow-Up Complete: Nutrition Diagnosis: Inadequate oral intake related to oral intubation as evidenced by NPO status. Nutrition Goal: Patient to meet estimated nutritional needs. Goal met. Patient tolerating Vital 1.2 at 55mL/hr goal rate with no reported issues. Recommend continuing present tube feeding. Last recorded weight is 83 kg which is down from last review. Bowel Motility: No documented BM as of yet. May need to consider medication to promote BM, given opiod medication. Labs Reviewed: Hgb (10.3), Hct (32.5), Glu (156), BUN (29), Na (132) Meds Noted: Albuterol, Zithromax, Rocephin, Fentanyl, Atrovent, Lamictal, Solu Medrol, Versed, Protonix, Dilantin IV Additional Notes: No documented skin breakdown. Will continue to monitor with same goal. Nutrition Monitoring and Evaluation: Follow up every Monday/Monday. Follow daily in ICU rounds.
[2020-05-15] MEDS: guaiFENesin/DEXTROMETHORPHAN 10 ML UDC PO ×3 (12:26→20:00)
--- NOTE | 2020-05-15 13:35 | WPDINTPN ---
Progress Note: A&P Assessment and Plan (1) Acute and chronic respiratory failure with hypercapnia: Code(s): J96.22 - Acute and chronic respiratory failure with hypercapnia Status: Acute Assessment and Plan: acute on chronic respiratory failure with hypercapnia on ABGs, likely related to COPD exacerbation - chest x-ray and ABGs reviewed, ventilator adjusted, increase tidal volume 7 mL/kilogram per body weight, decrease FiO2, maintain O2 sats greater than 90% - Continue albuterol and Atrovent nebulizer - continue ceftriaxone and azithromycin - continue steroids - sedated with fentanyl and Versed, maintain RASS of 0 to -2, daily sedation vacation (2) Acute exacerbation of chronic obstructive pulmonary disease (COPD): Code(s): J44.1 - Chronic obstructive pulmonary disease with (acute) exacerbation Status: Acute Assessment and Plan: continue mechanical ventilation, steroids and bronchodilators - chest x-ray and ABGs in a.m. 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 Status: Acute Assessment and Plan: patient has a history of DVT, on rivaroxaban (5) HTN (hypertension): Code(s): I10 - Essential (primary) hypertension Status: Chronic Assessment and Plan: history of essential hypertension, Tylenol antihypertensive given patient intubated, on sedation with adequate blood pressures at this time (6) Depression with anxiety: Code(s): F41.8 - Other specified anxiety disorders Status: Chronic (7) DVT prophylaxis: Code(s): Z29.9 - Encounter for prophylactic measures, unspecified Status: Acute Assessment and Plan: DVT prophylaxis: on rivaroxaban stress ulcer prophylaxis: Protonix (8) Dietary counseling and surveillance: Code(s): Z71.3 - Dietary counseling and surveillance Status: Acute Assessment and Plan: patient tolerating tube feeds (9) E. coli UTI: Code(s): N39.0 - Urinary tract infection, site not specified; B96.20 - Unspecified Escherichia coli [E. coli] as the cause of diseases classified elsewhere Status: Acute Assessment and Plan: urine cultures grew E coli solano susceptible, will continue ceftriaxone Additional Plan will discuss with family and updated them with patient's condition code status: Full code critical care time spent: 35 minutes Due to a high probability of clinically significant, life threatening deterioration, the patient required my highest level of preparedness to intervene emergently and I personally spent this critical care time directly and personally managing the patient. This critical care time included obtaining a history; examining the patient; pulse oximetry; ordering and review of studies; arranging urgent treatment with development of a management plan; evaluation of patient's response to treatment; frequent reassessment; and discussions with other providers. It was exclusive of separately billable procedures and treating other patients and teaching time. Please see Assessment and Plan section and the rest of the note for further information on patient assessment and treatment Subjective Date/time seen: 05/15/20 13:35 Interval history: Reason for consult: acute on chronic hypercapnic respiratory failure, COPD exacerbation 05/15/2020: Patient seen examined this morning in the ICU. Remains intubated, worsening pCO2, patient has significant wheezing. Urine cultures grew E coli. Hemodynamically stable, adequate O2 sats on 50% FiO2. Patient is afebrile, urine output is adequate. Patient sedated with fentanyl and 175 mcg/hr and Versed 6 mg/h
--- NOTE | 2020-05-15 16:07 | PM.IMPN ---
Progress Note: A&P Assessment and Plan (1) Acute and chronic respiratory failure with hypercapnia: Code(s): J96.22 - Acute and chronic respiratory failure with hypercapnia Status: Acute Assessment and Plan: the patient had worsening respiratory status. Despite multiple re-evaluations and BiPAP adjustments the patient ultimately required intubation. Patient was intubated and sedated. currently on FIO2 50% secondary to cope exacerbation wean per turbo operator (2) Acute exacerbation of chronic obstructive pulmonary disease (COPD): Code(s): J44.1 - Chronic obstructive pulmonary disease with (acute) exacerbation Status: Acute Assessment and Plan: patient has been initiated on Solu-Medrol at 60 mg Q 6 hours and scheduled nebulizer treatments with albuterol and Atrovent. Given the decline in the patient's pulmonary status Rocephin and azithromycin for empiric antibiotic coverage. were added (3) Chronic anticoagulation: Code(s): Z79.01 - long-term (current) use of anticoagulants Status: Acute Assessment and Plan: Continue Xarelto per OG tube. with history of DVT (4) HTN (hypertension): Code(s): I10 - Essential (primary) hypertension Status: Chronic Assessment and Plan: blood blood pressure adequate without ANIKA-inhibitor continue to hold at present time (5) Seizure disorder: Code(s): G40.909 - Epilepsy, unspecified, not intractable, without status epilepticus Status: Acute Assessment and Plan: continue gabapentin and phenytoin (6) E. coli UTI: Code(s): N39.0 - Urinary tract infection, site not specified; B96.20 - Unspecified Escherichia coli [E. coli] as the cause of diseases classified elsewhere Status: Acute Assessment and Plan: sensitive to cefriaxone , continue Subjective Date/time seen: 05/15/20 16:07 Interval history: date of visit 05/15. 59-year-old white female with COPD on home oxygen presented with altered mental status and increasing shortness of breath. Found to be in acute on chronic respiratory failure had to be intubated and transferred to the ICU. Presently still sedated and mechanically ventilated Exam Narrative: Exam Narrative: PHYSICAL EXAM: blood pressure 134/70 pulse is 92 saturating 92% on ventilator at 50% FiO2 with 5 of peep General: chronically ill-appearing, appears older than stated age, HEENT: neck is supple and no bruits, Respiratory: markedly decreased breath sounds, barrel-chested, following intubation equal breath sounds faint expiratory wheezes Cardiovascular: regular rate, regular rhythm, 2+ bilateral radial pedal pulses Gastrointestinal: soft, nontender, nondistended, positive bowel sounds Skin: , non jaundice Musculoskeletal: no edema, Neurological: sedated : Martínez catheter now in place Objective Data Vital Signs Vital Signs: Vital Signs - 24 hr 05/14/20 16:58 05/14/20 17:56 05/14/20 18:00 Temperature Pulse Rate 98 90 89 Respiratory Rate 20 21 H Blood Pressure 113/63 Pulse Oximetry 90 92 05/14/20 20:00 05/14/20 20:29 05/14/20 20:58 Temperature 37.2 C Pulse Rate 84 82 95 Respiratory Rate 22 H 20 21 H Blood Pressure 119/59 L Pulse Oximetry 90 05/14/20 21:34 05/14/20 22:00 05/14/20 23:15 Temperature Pulse Rate 97 92 90 Respiratory Rate 20 Blood Pressure 117/71 Pulse Oximetry 91 91 83 L 05/14/20 23:59 05/15/20 00:00 05/15/20 02:00 Temperature 37.1 C Pulse Rate 78 77 72 Respiratory Rate 20 20 20 Blood Pressure 108/55 L 103/63 Pulse Oximetry 77 L 92 05/15/20 02:29 05/15/20 04:00 05/15/20 04:44 Temperature 37.3 C Pulse Rate 94 87 92 Respiratory Rate 21 H 20 Blood Pressure 139/67 Pulse Oximetry 81 L 95 100 05/15/20 05:00 05/15/20 05:51 05/15/20 06:00 Temperature Pulse Rate 87 73 71 Respiratory Rate 20 22 H Blood Pressure 99/50 L Pulse Oximetry 95 93 05/15/20 08:
[2020-05-15] MEDS: RIVAROXABAN 20 MG TABLET FEED TUBE (17:22)
[2020-05-16] VITALS (43 sets, daily range): BP systolic 96–201; BP diastolic 54–92; PULSE 59–120; RESP 21–30; TEMP 36.8–37.1; O2SAT 91–100
[2020-05-16] MEDS: guaiFENesin/DEXTROMETHORPHAN 10 ML UDC PO ×6 (00:50→21:24)
[2020-05-16] MEDS: methylPREDNISolone SOD SUCC 125 MG VIAL 60 MG IV PUSH ×4 (00:54→17:18)
[2020-05-16] MEDS: IPRATROPIUM BR 0.02% INH SOLN 0.5 MG/2.5 ML VIAL INHALATION ×5 (04:32→20:29)
[2020-05-16] MEDS: ALBUTEROL SULFATE NEB 2.5 MG/0.5 ML INH 5 MG INHALATION ×5 (04:33→20:29)
[2020-05-16 04:45] LABS: Hematocrit 34.1 % (37.0-47.0); Hemoglobin 11.1 g/dL (12.0-15.0); Mean Corpuscular HGB Conc 32.6 g/dl (32-36); Mean Corpuscular Hemoglobin 30.7 pg (26-34); Mean Corpuscular Volume 94.5 fl (80-100); Mean Platelet Volume 10.3 fl (7.4-10.4); Platelet Count Result 271 k/mm3 (150-375); Red Blood Count 3.61 M/mm3 (4.2-5.4); Red Cell Distribution Width 11.7 % (11.5-14.5); White Blood Count 11.9 K/mm3 (4.5-10.0)
[2020-05-16 04:58] LABS: Anion Gap 5 mmol/L (8-16); Blood Urea Nitrogen 32 mg/dL (7-17); Carbon Dioxide 34 mmol/L (22-30); Chloride 92 mmol/L (98-107); Estimated CRCL calculation 82 ml/min; Estimated Glomerular Filt Rate > 60; Glucose 144 mg/dL (65-105); Magnesium 2.3 mg/dL (1.6-2.3); Phosphorus 3.5 mg/dL (2.5-4.5); Potassium 4.4 mmol/L (3.4-5.0); Sodium 131 mmol/L (137-145)
[2020-05-16 05:00] LABS: Lactic Acid Reflex 1.5 mmol/L (0.7-2.1)
[2020-05-16] MEDS: PHENYTOIN SODIUM INJ 100 MG/2 ML VIAL (*BKC) IV PUSH ×3 (05:22→21:25)
[2020-05-16] MEDS: PROPOFOL IV EMULSION 100 ML 2.5 MG IV CONT (05:22)
[2020-05-16 05:41] LABS: Alveolar/Arterial O2 Gradient 226.8 mmHg; Base Excess ABG 8.5 mEq/l (+/-2.0); Carboxyhemoglobin 0.1 % THb (0-2.0); Fractional Inspired Oxygen 50 %; HCO3 ABG 35.4 mEq/l (22.0-26.0); Methemoglobin ABG 0.1 %THb (0-1.5); Oxygen Content ABG 15.3 %vol (16.0-22.0); Oxygen Saturation ABG 90.5 % (95.0-100.0); Oxyhemoglobin 90.3 % THb (90.0-100.0); PO2 ABG 61.3 mmHg (80.0-100.0); PO2 FiO2 Ratio Arterial Blood 1.23 %; Reduced Hemoglobin 9.5 %THb (0-5.0); pH ABG 7.383 (7.350-7.450)
[2020-05-16 05:42] LABS: Device VENTILATOR; Modified Allen's Test Unable to perform; PCO2 ABG 60.8 mmHg (35.0-45.0); Site Drawn RIGHT RADIAL
[2020-05-16 05:43] LABS: Arterial Blood Gas PEEP 5 cmH2O; Arterial Blood Gas Tidal Volume 430 ml; Arterial Blood Gas Vent Mode CMV; Arterial Blood Gas Ventilator rate 22 /MIN
[2020-05-16] MEDS: BUDESONIDE RESPULE NEB 0.5 MG/2 ML AMP INHALATION ×2 (08:41→20:30)
[2020-05-16] MEDS: lamoTRIgine 100 MG TABLET FEED TUBE ×2 (08:59→17:18)
[2020-05-16] MEDS: PANTOPRAZOLE SODIUM IV 40 MG VIAL IV PUSH (09:05)
--- NOTE | 2020-05-16 09:05 | WPDINTPN ---
Progress Note: A&P Assessment and Plan (1) Acute and chronic respiratory failure with hypercapnia: Code(s): J96.22 - Acute and chronic respiratory failure with hypercapnia Status: Acute Assessment and Plan: acute on chronic respiratory failure with hypercapnia on ABGs, likely related to COPD exacerbation - chest x-ray and ABGs reviewed, continue current setting - Continue albuterol and Atrovent nebulizer - continue ceftriaxone and azithromycin - continue steroids - sedated with fentanyl and Versed, maintain RASS of 0 to -2, daily sedation vacation - check sputum cultures (2) Acute exacerbation of chronic obstructive pulmonary disease (COPD): Code(s): J44.1 - Chronic obstructive pulmonary disease with (acute) exacerbation Status: Acute Assessment and Plan: continue mechanical ventilation, steroids and bronchodilators - chest x-ray and ABGs in a.m. 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 of anticoagulants Status: Acute Assessment and Plan: patient has a history of DVT, on rivaroxaban (5) HTN (hypertension): Code(s): I10 - Essential (primary) hypertension Status: Chronic Assessment and Plan: history of essential hypertension, Tylenol antihypertensive given patient intubated, on sedation with adequate blood pressures at this time (6) Depression with anxiety: Code(s): F41.8 - Other specified anxiety disorders Status: Chronic (7) DVT prophylaxis: Code(s): Z29.9 - Encounter for prophylactic measures, unspecified Status: Acute Assessment and Plan: DVT prophylaxis: on rivaroxaban stress ulcer prophylaxis: Protonix (8) Dietary counseling and surveillance: Code(s): Z71.3 - Dietary counseling and surveillance Status: Acute Assessment and Plan: patient tolerating tube feeds (9) E. coli UTI: Code(s): N39.0 - Urinary tract infection, site not specified; B96.20 - Unspecified Escherichia coli [E. coli] as the cause of diseases classified elsewhere Status: Acute Assessment and Plan: urine cultures grew E coli solano susceptible, will continue ceftriaxone Additional Plan will discuss with family and updated them with patient's condition code status: Full code critical care time spent: 33 minutes Due to a high probability of clinically significant, life threatening deterioration, the patient required my highest level of preparedness to intervene emergently and I personally spent this critical care time directly and personally managing the patient. This critical care time included obtaining a history; examining the patient; pulse oximetry; ordering and review of studies; arranging urgent treatment with development of a management plan; evaluation of patient's response to treatment; frequent reassessment; and discussions with other providers. It was exclusive of separately billable procedures and treating other patients and teaching time. Please see Assessment and Plan section and the rest of the note for further information on patient assessment and treatment Subjective Date/time seen: 05/16/20 09:05 Interval history: Reason for consult: acute on chronic hypercapnic respiratory failure, COPD exacerbation 05/16/2020: Patient seen examined this morning the ICU. Remains intubated, CMV mode of ventilation, peep of 5 in 45% FiO2. Patient is sedated with propofol infusion, weaning fentanyl and Versed infusions. Patient is tolerating tube feeds. Afebrile, adequate urine output. She still continues to have some bouts of coughing, which has improved on propofol Review of Systems Review of Systems: ROS unobtainable: Yes un
[2020-05-16] MEDS: PROPOFOL IV EMULSION 100 ML 14.9 MG IV CONT (12:27)
--- NOTE | 2020-05-16 15:47 | PM.IMPN ---
Progress Note: A&P Assessment and Plan (1) Acute and chronic respiratory failure with hypercapnia: Code(s): J96.22 - Acute and chronic respiratory failure with hypercapnia Status: Acute Assessment and Plan: the patient had worsening respiratory status. Despite multiple re-evaluations and BiPAP adjustments the patient ultimately required intubation. Patient was intubated and sedated. currently on FIO2 45% secondary to copd exacerbation wean per gre tutor (2) Acute exacerbation of chronic obstructive pulmonary disease (COPD): Code(s): J44.1 - Chronic obstructive pulmonary disease with (acute) exacerbation Status: Acute Assessment and Plan: patient has been initiated on Solu-Medrol at 60 mg Q 6 hours and scheduled nebulizer treatments with albuterol and Atrovent. Given the decline in the patient's pulmonary status Rocephin and azithromycin for empiric antibiotic coverage. were added, D#3 (3) Chronic anticoagulation: Code(s): Z79.01 - half-way (current) use of anticoagulants Status: Acute Assessment and Plan: Continue Xarelto per OG tube. with history of DVT (4) HTN (hypertension): Code(s): I10 - Essential (primary) hypertension Status: Chronic Assessment and Plan: blood blood pressure adequate without ANIKA-inhibitor continue to hold at present time (5) Seizure disorder: Code(s): G40.909 - Epilepsy, unspecified, not intractable, without status epilepticus Status: Acute Assessment and Plan: continue gabapentin and phenytoin (6) E. coli UTI: Code(s): N39.0 - Urinary tract infection, site not specified; B96.20 - Unspecified Escherichia coli [E. coli] as the cause of diseases classified elsewhere Status: Acute Assessment and Plan: sensitive to cefriaxone , continue Subjective Date/time seen: 05/16/20 15:47 Interval history: date of visit 05/16. 59-year-old white female with COPD on home oxygen presented with altered mental status and increasing shortness of breath. Found to be in acute on chronic respiratory failure had to be intubated and transferred to the ICU. Presently still sedated and mechanically ventilated Exam Narrative: Exam Narrative: PHYSICAL EXAM: blood pressure 124/72 pulse is 80 saturating 92% on ventilator at 45% FiO2 with 5 of peep General: chronically ill-appearing, appears older than stated age, HEENT: neck is supple and no bruits, Respiratory: markedly decreased breath sounds, barrel-chested, following intubation equal breath sounds faint expiratory wheezes Cardiovascular: regular rate, regular rhythm, 2+ bilateral radial pedal pulses Gastrointestinal: soft, nontender, nondistended, positive bowel sounds Skin: , non jaundice Musculoskeletal: no edema, Neurological: sedated : Martínez catheter now in place Objective Data Vital Signs Vital Signs: Vital Signs - 24 hr 05/15/20 16:00 05/15/20 16:19 05/15/20 16:26 Temperature 36.7 C Pulse Rate 83 76 82 Respiratory Rate 22 H 22 H 22 H Blood Pressure 119/64 Pulse Oximetry 93 05/15/20 16:27 05/15/20 17:22 05/15/20 17:26 Temperature Pulse Rate 82 82 80 Respiratory Rate 22 H 22 H Blood Pressure Pulse Oximetry 93 05/15/20 18:00 05/15/20 20:00 05/15/20 20:07 Temperature 36.6 C Pulse Rate 89 101 H 93 Respiratory Rate 22 H 22 H 22 H Blood Pressure 144/74 H 168/78 H Pulse Oximetry 92 91 91 05/15/20 20:17 05/15/20 22:00 05/15/20 23:32 Temperature Pulse Rate 95 75 80 Respiratory Rate 22 H 22 H 22 H Blood Pressure 142/82 H Pulse Oximetry 92 96 05/15/20 23:44 05/15/20 23:59 05/16/20 00:00 Temperature Pulse Rate 91 92 102 H Respiratory Rate 24 H 22 H 21 H Blood Pressure 163/92 H Pulse Oximetry 93 05/16/20 00:50 05/16/20 02:00 05/16/20 02:28 Temperature Pulse Rate 92 85 87 Respiratory Rate 22 H 22 H Blood Pressure 135/74 Pulse Oximetry 93 93
[2020-05-16] MEDS: RIVAROXABAN 20 MG TABLET FEED TUBE (17:18)
[2020-05-16] MEDS: PROPOFOL IV EMULSION 100 ML 19.9 MG IV CONT ×2 (18:26→22:45)
[2020-05-17] VITALS (48 sets, daily range): BP systolic 90–171; BP diastolic 58–97; PULSE 62–131; RESP 22–30; TEMP 36.1–37.2; O2SAT 86–94
[2020-05-17] MEDS: guaiFENesin/DEXTROMETHORPHAN 10 ML UDC PO ×6 (00:19→21:54)
[2020-05-17] MEDS: methylPREDNISolone SOD SUCC 125 MG VIAL 60 MG IV PUSH ×4 (00:23→17:18)
[2020-05-17] MEDS: ALBUTEROL SULFATE NEB 2.5 MG/0.5 ML INH 5 MG INHALATION ×7 (02:05→23:01)
[2020-05-17] MEDS: IPRATROPIUM BR 0.02% INH SOLN 0.5 MG/2.5 ML VIAL INHALATION ×7 (02:05→23:00)
[2020-05-17] MEDS: PROPOFOL IV EMULSION 100 ML 24.9 MG IV CONT ×3 (03:29→21:34)
[2020-05-17 04:13] LABS: Hematocrit 32.5 % (37.0-47.0); Hemoglobin 10.5 g/dL (12.0-15.0); Mean Corpuscular HGB Conc 32.3 g/dl (32-36); Mean Corpuscular Hemoglobin 30.4 pg (26-34); Mean Corpuscular Volume 94.2 fl (80-100); Mean Platelet Volume 10.3 fl (7.4-10.4); Platelet Count Result 279 k/mm3 (150-375); Red Blood Count 3.45 M/mm3 (4.2-5.4); Red Cell Distribution Width 11.9 % (11.5-14.5); White Blood Count 8.7 K/mm3 (4.5-10.0)
[2020-05-17 04:28] LABS: Anion Gap 6 mmol/L (8-16); Blood Urea Nitrogen 29 mg/dL (7-17); Calcium 8.7 mg/dL (8.4-10.2); Carbon Dioxide 33 mmol/L (22-30); Chloride 92 mmol/L (98-107); Estimated CRCL calculation 96 ml/min; Estimated Glomerular Filt Rate > 60; Glucose 156 mg/dL (65-105); Magnesium 2.3 mg/dL (1.6-2.3); Phosphorus 3.7 mg/dL (2.5-4.5); Potassium 4.4 mmol/L (3.4-5.0); Sodium 131 mmol/L (137-145)
[2020-05-17 04:29] LABS: Lactic Acid Reflex 1.4 mmol/L (0.7-2.1)
[2020-05-17 04:36] LABS: Alveolar/Arterial O2 Gradient 172.7 mmHg; Base Excess ABG 9.4 mEq/l (+/-2.0); Carboxyhemoglobin 0.3 % THb (0-2.0); Fractional Inspired Oxygen 40 %; HCO3 ABG 34.4 mEq/l (22.0-26.0); Methemoglobin ABG 0.2 %THb (0-1.5); Oxygen Content ABG 13.9 %vol (16.0-22.0); Oxygen Saturation ABG 90.3 % (95.0-100.0); Oxyhemoglobin 87.6 % THb (90.0-100.0); PCO2 ABG 49.2 mmHg (35.0-45.0); PO2 ABG 55.9 mmHg (80.0-100.0); Reduced Hemoglobin 11.9 %THb (0-5.0); Total Hemoglobin 11.3 g/dL (12.0-18.0); pH ABG 7.463 (7.350-7.450)
[2020-05-17 04:37] LABS: Arterial Blood Gas Vent Mode CMV; Arterial Blood Gas Ventilator rate 22 /MIN; Device VENTILATOR; Modified Allen's Test Pass; Site Drawn RIGHT RADIAL
[2020-05-17 04:38] LABS: Arterial Blood Gas PEEP 5 cmH2O; Arterial Blood Gas Tidal Volume 430 ml
[2020-05-17] MEDS: PHENYTOIN SODIUM INJ 100 MG/2 ML VIAL (*BKC) IV PUSH ×3 (05:22→21:54)
[2020-05-17] MEDS: BUDESONIDE RESPULE NEB 0.5 MG/2 ML AMP INHALATION ×2 (07:47→19:34)
[2020-05-17] MEDS: PROPOFOL IV EMULSION 100 ML 19.9 MG IV CONT ×2 (08:41→15:44)
[2020-05-17] MEDS: lamoTRIgine 100 MG TABLET FEED TUBE ×2 (08:45→17:18)
[2020-05-17] MEDS: PANTOPRAZOLE SODIUM IV 40 MG VIAL IV PUSH (08:45)
--- NOTE | 2020-05-17 09:01 | WPDINTPN ---
Progress Note: A&P Assessment and Plan (1) Acute and chronic respiratory failure with hypercapnia: Code(s): J96.22 - Acute and chronic respiratory failure with hypercapnia Status: Acute Assessment and Plan: acute on chronic respiratory failure with hypercapnia on ABGs, likely related to COPD exacerbation - chest x-ray and ABGs reviewed, continue current setting, will diurese today - Continue albuterol and Atrovent nebulizer - continue ceftriaxone and azithromycin - continue steroids - sedated with fentanyl propofol, maintain RASS of 0 to -2, daily sedation vacation - sputum culture 05/14: growth of normal oropharyngeal lelo (2) Acute exacerbation of chronic obstructive pulmonary disease (COPD): Code(s): J44.1 - Chronic obstructive pulmonary disease with (acute) exacerbation Status: Acute Assessment and Plan: continue mechanical ventilation, steroids and bronchodilators - chest x-ray and ABGs in a.m. - continue guaifenesin per tube (3) E. coli UTI: Code(s): N39.0 - Urinary tract infection, site not specified; B96.20 - Unspecified Escherichia coli [E. coli] as the cause of diseases classified elsewhere Status: Acute Assessment and Plan: urine cultures grew E coli solano susceptible, will continue ceftriaxone (4) Seizure disorder: Code(s): G40.909 - Epilepsy, unspecified, not intractable, without status epilepticus Status: Acute Assessment and Plan: continue phenytoin, Lamictal (5) Chronic anticoagulation: Code(s): Z79.01 - correction (current) use of anticoagulants Status: Acute Assessment and Plan: patient has a history of DVT, on rivaroxaban (6) HTN (hypertension): Code(s): I10 - Essential (primary) hypertension Status: Chronic Assessment and Plan: history of essential hypertension, Tylenol antihypertensive given patient intubated, on sedation with adequate blood pressures at this time (7) Dietary counseling and surveillance: Code(s): Z71.3 - Dietary counseling and surveillance Status: Acute Assessment and Plan: patient tolerating tube feeds (8) DVT prophylaxis: Code(s): Z29.9 - Encounter for prophylactic measures, unspecified Status: Acute Assessment and Plan: DVT prophylaxis: on rivaroxaban stress ulcer prophylaxis: Protonix Additional Plan will discuss with family and updated them with patient's condition code status: Full code critical care time spent: 32 minutes Due to a high probability of clinically significant, life threatening deterioration, the patient required my highest level of preparedness to intervene emergently and I personally spent this critical care time directly and personally managing the patient. This critical care time included obtaining a history; examining the patient; pulse oximetry; ordering and review of studies; arranging urgent treatment with development of a management plan; evaluation of patient's response to treatment; frequent reassessment; and discussions with other providers. It was exclusive of separately billable procedures and treating other patients and teaching time. Please see Assessment and Plan section and the rest of the note for further information on patient assessment and treatment Subjective Date/time seen: 05/17/20 09:01 Interval history: Reason for consult: acute on chronic hypercapnic respiratory failure, COPD exacerbation 06/03/2020: Patient remains intubated, CMV mode of ventilation, 40% FiO2, peep of 5. Sedated with propofol and fentanyl infusions. Tolerating tube feeds, patient is afebrile, hemodynamically stable with adequate urine output. Condition continues to have bouts of coughing Review of Systems Review of Systems: ROS unobtainable: Yes unobtainable due to endotracheal tube and unobtainable due to mental status Exam Const: General: comfortable and no acute distress HEN
[2020-05-17] MEDS: FUROSEMIDE INJ 40 MG/4 ML VIAL 20 MG IV PUSH (09:26)
[2020-05-17] MEDS: GABAPENTIN 100 MG CAPSULE 200 MG PO ×3 (11:23→17:17)
--- NOTE | 2020-05-17 16:11 | PM.IMPN ---
Progress Note: A&P Assessment and Plan (1) Acute and chronic respiratory failure with hypercapnia: Code(s): J96.22 - Acute and chronic respiratory failure with hypercapnia Status: Acute Assessment and Plan: the patient had worsening respiratory status. Despite multiple re-evaluations and BiPAP adjustments the patient ultimately required intubation. Patient was intubated and sedated. currently on FIO2 40% secondary to copd exacerbation wean per floral department specialist (2) Acute exacerbation of chronic obstructive pulmonary disease (COPD): Code(s): J44.1 - Chronic obstructive pulmonary disease with (acute) exacerbation Status: Acute Assessment and Plan: patient has been initiated on Solu-Medrol at 60 mg Q 6 hours and scheduled nebulizer treatments with albuterol and Atrovent. Given the decline in the patient's pulmonary status Rocephin and azithromycin for empiric antibiotic coverage. were added, D#4 (3) Chronic anticoagulation: Code(s): Z79.01 - half-way (current) use of anticoagulants Status: Acute Assessment and Plan: Continue Xarelto per OG tube. with history of DVT (4) HTN (hypertension): Code(s): I10 - Essential (primary) hypertension Status: Chronic Assessment and Plan: blood blood pressure adequate without ANIKA-inhibitor continue to hold at present time (5) Seizure disorder: Code(s): G40.909 - Epilepsy, unspecified, not intractable, without status epilepticus Status: Acute Assessment and Plan: continue gabapentin and phenytoin (6) E. coli UTI: Code(s): N39.0 - Urinary tract infection, site not specified; B96.20 - Unspecified Escherichia coli [E. coli] as the cause of diseases classified elsewhere Status: Acute Assessment and Plan: sensitive to cefriaxone , continue Subjective Date/time seen: 05/17/20 16:11 Interval history: date of visit 05/17. 59-year-old white female with COPD on home oxygen presented with altered mental status and increasing shortness of breath. Found to be in acute on chronic respiratory failure had to be intubated and transferred to the ICU. Presently still sedated and mechanically ventilated Exam Narrative: Exam Narrative: PHYSICAL EXAM: blood pressure 130/74 pulse is 82 saturating 92% on ventilator at 40% FiO2 with 5 of peep General: chronically ill-appearing, appears older than stated age, HEENT: neck is supple , OG with tube feedings Respiratory: markedly decreased breath sounds, barrel-chested, following intubation equal breath sounds faint expiratory wheezes have subsided Cardiovascular: regular rate, regular rhythm, 2+ bilateral radial pedal pulses Gastrointestinal: soft, nontender, nondistended, positive bowel sounds Skin: , non jaundice Musculoskeletal: no edema, Neurological: sedated : Martínez catheter in place Objective Data Vital Signs Vital Signs: Vital Signs - 24 hr 05/16/20 16:13 05/16/20 16:14 05/16/20 16:18 Temperature Pulse Rate 87 88 94 Respiratory Rate 22 H 22 H Blood Pressure Pulse Oximetry 92 05/16/20 18:00 05/16/20 18:50 05/16/20 20:00 Temperature 37.1 C Pulse Rate 89 72 60 Respiratory Rate 24 H 22 H 22 H Blood Pressure 137/75 96/54 L Pulse Oximetry 91 91 05/16/20 20:25 05/16/20 20:30 05/16/20 20:48 Temperature Pulse Rate 95 95 99 Respiratory Rate 26 H 24 H Blood Pressure Pulse Oximetry 100 05/16/20 21:00 05/16/20 22:00 05/16/20 23:30 Temperature Pulse Rate 76 96 69 Respiratory Rate 22 H 22 H Blood Pressure 145/76 H Pulse Oximetry 92 91 05/17/20 00:00 05/17/20 01:02 05/17/20 02:00 Temperature 37.0 C Pulse Rate 90 122 H 79 Respiratory Rate 22 H 27 H 22 H Blood Pressure 107/60 152/83 H Pulse Oximetry 91 92 05/17/20 02:05 05/17/20 02:17 05/17/20 02:38 Temperature Pulse Rate 79 80 126 H Respiratory Rate 22 H 22 H 26 H Blood Pressure Pulse Oximetry
[2020-05-17] MEDS: RIVAROXABAN 20 MG TABLET FEED TUBE (17:17)
[2020-05-18] VITALS (46 sets, daily range): BP systolic 103–164; BP diastolic 61–97; PULSE 68–117; RESP 11–22; TEMP 36.4–37.2; O2SAT 90–97
[2020-05-18] MEDS: methylPREDNISolone SOD SUCC 125 MG VIAL 60 MG IV PUSH ×4 (00:12→17:53)
[2020-05-18] MEDS: guaiFENesin/DEXTROMETHORPHAN 10 ML UDC PO ×6 (00:12→21:15)
[2020-05-18] MEDS: PROPOFOL IV EMULSION 100 ML 24.9 MG IV CONT ×5 (00:59→21:13)
[2020-05-18] MEDS: IPRATROPIUM BR 0.02% INH SOLN 0.5 MG/2.5 ML VIAL INHALATION ×4 (03:58→20:23)
[2020-05-18] MEDS: ALBUTEROL SULFATE NEB 2.5 MG/0.5 ML INH 5 MG INHALATION ×4 (03:59→20:24)
[2020-05-18 04:36] LABS: Alveolar/Arterial O2 Gradient 199.4 mmHg; Base Excess ABG 7.4 mEq/l (+/-2.0); Carboxyhemoglobin 0.3 % THb (0-2.0); Fractional Inspired Oxygen 45 %; HCO3 ABG 31.8 mEq/l (22.0-26.0); Methemoglobin ABG 0.2 %THb (0-1.5); Oxygen Saturation ABG 95.3 % (95.0-100.0); Oxyhemoglobin 93.6 % THb (90.0-100.0); PCO2 ABG 43.8 mmHg (35.0-45.0); PO2 ABG 71.6 mmHg (80.0-100.0); PO2 FiO2 Ratio Arterial Blood 1.59 %; Reduced Hemoglobin 5.9 %THb (0-5.0); Total Hemoglobin 12.9 g/dL (12.0-18.0); pH ABG 7.479 (7.350-7.450)
[2020-05-18 04:37] LABS: Arterial Blood Gas Ventilator rate 22 /MIN; Device VENTILATOR; Modified Allen's Test Pass; Site Drawn RIGHT RADIAL
[2020-05-18 04:38] LABS: Arterial Blood Gas PEEP 5 cmH2O; Arterial Blood Gas Tidal Volume 430 ml; Arterial Blood Gas Vent Mode CMV
[2020-05-18] MEDS: PHENYTOIN SODIUM INJ 100 MG/2 ML VIAL (*BKC) IV PUSH ×3 (05:29→21:23)
[2020-05-18 06:53] LABS: Hematocrit 32.3 % (37.0-47.0); Hemoglobin 10.8 g/dL (12.0-15.0); Mean Corpuscular HGB Conc 33.4 g/dl (32-36); Mean Corpuscular Hemoglobin 30.5 pg (26-34); Mean Corpuscular Volume 91.2 fl (80-100); Mean Platelet Volume 10.2 fl (7.4-10.4); Platelet Count Result 311 k/mm3 (150-375); Red Blood Count 3.54 M/mm3 (4.2-5.4); Red Cell Distribution Width 11.7 % (11.5-14.5); White Blood Count 11.5 K/mm3 (4.5-10.0)
[2020-05-18 07:08] LABS: Anion Gap 6 mmol/L (8-16); Blood Urea Nitrogen 30 mg/dL (7-17); Calcium 8.5 mg/dL (8.4-10.2); Carbon Dioxide 33 mmol/L (22-30); Chloride 93 mmol/L (98-107); Estimated CRCL calculation 96 ml/min; Estimated Glomerular Filt Rate > 60; Glucose 175 mg/dL (65-105); Magnesium 2.3 mg/dL (1.6-2.3); Phosphorus 4.8 mg/dL (2.5-4.5); Potassium 4.7 mmol/L (3.4-5.0); Sodium 132 mmol/L (137-145)
[2020-05-18] MEDS: GABAPENTIN 100 MG CAPSULE 200 MG PO ×3 (07:44→16:11)
[2020-05-18] MEDS: lamoTRIgine 100 MG TABLET FEED TUBE ×2 (07:44→16:10)
[2020-05-18] MEDS: PANTOPRAZOLE SODIUM IV 40 MG VIAL IV PUSH (07:45)
[2020-05-18] MEDS: FUROSEMIDE INJ 40 MG/4 ML VIAL 20 MG IV PUSH (07:47)
[2020-05-18] MEDS: BUDESONIDE RESPULE NEB 0.5 MG/2 ML AMP INHALATION ×2 (08:02→20:23)
--- NOTE | 2020-05-18 08:33 | WPDINTPN ---
Progress Note: A&P Assessment and Plan (1) Acute and chronic respiratory failure with hypercapnia: Code(s): J96.22 - Acute and chronic respiratory failure with hypercapnia Status: Acute Assessment and Plan: acute on chronic respiratory failure with hypercapnia on ABGs, likely related to COPD exacerbation - chest x-ray and ABGs reviewed, continue current setting, - Continue albuterol and Atrovent nebulizer - continue ceftriaxone and azithromycin - continue steroids - sedated with fentanyl propofol, maintain RASS of 0 to -2, daily sedation vacation - sputum culture 05/14: growth of normal oropharyngeal lelo - will diurese patient again today (2) Acute exacerbation of chronic obstructive pulmonary disease (COPD): Code(s): J44.1 - Chronic obstructive pulmonary disease with (acute) exacerbation Status: Acute Assessment and Plan: continue mechanical ventilation, steroids and bronchodilators - chest x-ray and ABGs in a.m. - continue guaifenesin per tube (3) E. coli UTI: Code(s): N39.0 - Urinary tract infection, site not specified; B96.20 - Unspecified Escherichia coli [E. 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 Status: Acute Assessment and Plan: patient has a history of DVT, on rivaroxaban (6) HTN (hypertension): Code(s): I10 - Essential (primary) hypertension Status: Chronic Assessment and Plan: history of essential hypertension, stable blood pressure (7) Dietary counseling and surveillance: Code(s): Z71.3 - Dietary counseling and surveillance Status: Acute Assessment and Plan: patient tolerating tube feeds (8) DVT prophylaxis: Code(s): Z29.9 - Encounter for prophylactic measures, unspecified Status: Acute Assessment and Plan: DVT prophylaxis: on rivaroxaban stress ulcer prophylaxis: Protonix Additional Plan will discuss with family and updated them with patient's condition code status: Full code critical care time spent: 32 minutes Due to a high probability of clinically significant, life threatening deterioration, the patient required my highest level of preparedness to intervene emergently and I personally spent this critical care time directly and personally managing the patient. This critical care time included obtaining a history; examining the patient; pulse oximetry; ordering and review of studies; arranging urgent treatment with development of a management plan; evaluation of patient's response to treatment; frequent reassessment; and discussions with other providers. It was exclusive of separately billable procedures and treating other patients and teaching time. Please see Assessment and Plan section and the rest of the note for further information on patient assessment and treatment Subjective Date/time seen: 05/18/20 08:33 Interval history: Reason for consult: acute on chronic hypercapnic respiratory failure, COPD exacerbation 05/18/2020: Patient remains intubated, CMV mode of ventilation, 45% FiO2, peep of 5. Urine output has been very good in response to diuretics given yesterday per patient is afebrile, hemodynamically stable. Remains on propofol 40 mcg/ kg/min and fentanyl 125 mcg/hr infusion for sedation. Patient has been tolerating her tube feeds. Continues to have intermittent bouts of coughing Review of Systems Review of Systems: ROS unobtainable: Yes unobtainable due to endotracheal tube and unobtainable due to mental status Exam Const:
[2020-05-18] MEDS: PROPOFOL IV EMULSION 100 ML 19.9 MG IV CONT (09:06)
--- NOTE | 2020-05-18 11:05 | PCDIET ---
ICU Rounding Note: Patient tolerating Vital 1.2 at 55mL/hr goal rate. Last recorded weight is 87.2kg which is increased from last review. Bowel Motility: No documented BM - discussed during rounds - MD added Miralax. Labs Reviewed: Hgb (10.8), Hct (32.3), Glu (175), BUN (30), Cr (0.6), Na (132), PO4 (4.8) Meds Noted: Albuterol, Atrovent, Zithromax, Solu Medrol, Rocephin, Protonix, Fentanyl, Dilantin IV, Lasix Additional Notes: RN reports preventative Mepilex to buttocks. No other skin issues reported. Following daily in ICU rounds. Assessing/reassessing every Monday/Monday.
[2020-05-18] MEDS: polyethylene glycoL 3350 17 GM POWD.PACK PO (15:04)
[2020-05-18] MEDS: RIVAROXABAN 20 MG TABLET FEED TUBE (16:10)
[2020-05-18] MEDS: SCOPOLAMINE 1.5 MG PATCH TRANSDERM (16:17)
--- NOTE | 2020-05-18 17:59 | PM.IMPN ---
Progress Note: A&P Assessment and Plan (1) Acute and chronic respiratory failure with hypercapnia: Code(s): J96.22 - Acute and chronic respiratory failure with hypercapnia Status: Acute Assessment and Plan: the patient had worsening respiratory status. Despite multiple re-evaluations and BiPAP adjustments the patient ultimately required intubation. Patient was intubated and sedated. 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 Given the decline in the patient's pulmonary status Rocephin and azithromycin for empiric antibiotic coverage. 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 with history of DVT (4) HTN (hypertension): Code(s): I10 - Essential (primary) hypertension Status: Chronic Assessment and Plan: blood blood pressure adequate without ANIKA-inhibitor continue to hold at present time (5) Seizure disorder: Code(s): G40.909 - Epilepsy, unspecified, not intractable, without status epilepticus Status: Acute Assessment and Plan: continue gabapentin and phenytoin (6) E. coli UTI: Code(s): N39.0 - Urinary tract infection, site not specified; B96.20 - Unspecified Escherichia coli [E. coli] as the cause of diseases classified elsewhere Status: Acute Assessment and Plan: sensitive to cefriaxone , continue Subjective Date/time seen: 05/18/20 17:59 Interval history: date of visit 05/18. 59-year-old white female with COPD on home oxygen presented with altered mental status and increasing shortness of breath. Found to be in acute on chronic respiratory failure had to be intubated and transferred to the ICU. Presently still sedated and mechanically ventilated Exam Narrative: Exam Narrative: PHYSICAL EXAM: blood pressure 126/74 pulse is 86 saturating 92% on ventilator at 40% FiO2 with 5 of peep General: chronically ill-appearing, appears older than stated age, HEENT: neck is supple , ET tube and OG with tube feedings Respiratory: markedly decreased breath sounds, no wheezes today Cardiovascular: regular rate, regular rhythm, 2+ bilateral radial pedal pulses Gastrointestinal: soft, nontender, nondistended, positive bowel sounds Skin: , non jaundice Musculoskeletal: no edema, Neurological: sedated : Martínez catheter in place Objective Data Vital Signs Vital Signs: Vital Signs - 24 hr 05/17/20 18:00 05/17/20 18:23 05/17/20 19:37 Temperature Pulse Rate 67 75 68 Respiratory Rate 22 H 22 H 22 H Blood Pressure 108/63 Pulse Oximetry 92 05/17/20 19:43 05/17/20 19:46 05/17/20 20:00 Temperature 36.4 C Pulse Rate 68 69 73 Respiratory Rate 22 H 22 H Blood Pressure 127/68 Pulse Oximetry 90 92 05/17/20 20:46 05/17/20 21:34 05/17/20 21:35 Temperature Pulse Rate 110 H 110 H 110 H Respiratory Rate 30 H 30 H 30 H Blood Pressure Pulse Oximetry 05/17/20 22:00 05/17/20 23:01 05/17/20 23:04 Temperature Pulse Rate 98 77 77 Respiratory Rate 22 H 22 H Blood Pressure 162/90 H Pulse Oximetry 93 90 05/17/20 23:08 05/18/20 00:00 05/18/20 00:59 Temperature 36.8 C Pulse Rate 72 92 109 H Respiratory Rate 22 H 22 H 22 H Blood Pressure 121/71 Pulse Oximetry 95 05/18/20 01:35 05/18/20 02:00 05/18/20 03:17 Temperature Pulse Rate 89 87 83 Respiratory Rate 22 H 22 H Blood Pressure 146/84 H Pulse Oximetry 90 96 05/18/20 03:59 05/18/20 04:00 05/18/20 04:11 Temperature 36.9 C Pu
[2020-05-19] VITALS (35 sets, daily range): BP systolic 94–162; BP diastolic 58–85; PULSE 79–117; RESP 10–25; TEMP 36.6–37; O2SAT 91–99
[2020-05-19] MEDS: guaiFENesin/DEXTROMETHORPHAN 10 ML UDC PO ×6 (00:19→20:47)
[2020-05-19] MEDS: methylPREDNISolone SOD SUCC 125 MG VIAL 60 MG IV PUSH ×4 (00:19→17:29)
[2020-05-19] MEDS: PROPOFOL IV EMULSION 100 ML 24.9 MG IV CONT ×5 (00:20→15:00)
--- NOTE | 2020-05-19 01:00 | PC.NURSE ---
pt vent alarming low volumes cuff noted to be flat and will not inflate. Dr velasquez notified and pt prepped for reintubation. Given rocuronium 40 mg Lynne Velasquez reintubated using bougie with a 7.5 ET tube 26 cm at lip confirmed with chest xray. pt tolerated well
--- NOTE | 2020-05-19 01:10 | WPDPROCEDUR ---
Procedures Intubation Intubation Date: 05/19/20 Intubation Time: 01:10 A pre-procedural Time-Out was completed immediately before starting the procedure and confirmed: Patient Identification, Site, Procedure, Patient Position and the Availability of Requisite Equipment: Yes Paralytic: rocuronium Mg given: 40 Laryngoscope: fiber optic video scope Assist device used: Bougie ET tube size: 7.5 Tube secured depth (cm): 26 Tube secured location: teeth Tube placement confirmation: visualized tube passing through cords, no breath sounds over epigastrium and confirmation by capnometry Patient tolerated procedure: well Intubation complications: none Additional comments: Date of service was 05/19/2020 at 00:40 hrs.
[2020-05-19] MEDS: IPRATROPIUM BR 0.02% INH SOLN 0.5 MG/2.5 ML VIAL INHALATION ×4 (02:42→20:23)
[2020-05-19] MEDS: ALBUTEROL SULFATE NEB 2.5 MG/0.5 ML INH 5 MG INHALATION ×4 (02:43→20:23)
[2020-05-19] MEDS: RAPID SEQUENCE INTUBATION KIT 1 EACH (04:10)
[2020-05-19 04:32] LABS: Hematocrit 35.8 % (37.0-47.0); Hemoglobin 11.9 g/dL (12.0-15.0); Mean Corpuscular HGB Conc 33.2 g/dl (32-36); Mean Corpuscular Volume 93.2 fl (80-100); Mean Platelet Volume 10.4 fl (7.4-10.4); Platelet Count Result 304 k/mm3 (150-375); Red Blood Count 3.84 M/mm3 (4.2-5.4)
[2020-05-19 04:44] LABS: Anion Gap 6 mmol/L (8-16); Blood Urea Nitrogen 29 mg/dL (7-17); Calcium 8.8 mg/dL (8.4-10.2); Carbon Dioxide 35 mmol/L (22-30); Chloride 90 mmol/L (98-107); Estimated CRCL calculation 113 ml/min; Estimated Glomerular Filt Rate > 60; Glucose 154 mg/dL (65-105); Magnesium 2.5 mg/dL (1.6-2.3); Phosphorus 5.5 mg/dL (2.5-4.5); Potassium 4.4 mmol/L (3.4-5.0); Sodium 131 mmol/L (137-145)
[2020-05-19 05:05] LABS: Alveolar/Arterial O2 Gradient 150.7 mmHg; Base Excess ABG 6.4 mEq/l (+/-2.0); Carboxyhemoglobin 0.1 % THb (0-2.0); Fractional Inspired Oxygen 45 %; HCO3 ABG 33.1 mEq/l (22.0-26.0); Methemoglobin ABG 0.2 %THb (0-1.5); Oxygen Content ABG 17.6 %vol (16.0-22.0); Oxygen Saturation ABG 97.6 % (95.0-100.0); PCO2 ABG 57.2 mmHg (35.0-45.0); PO2 ABG 105.1 mmHg (80.0-100.0); PO2 FiO2 Ratio Arterial Blood 2.34 %; Reduced Hemoglobin 2.7 %THb (0-5.0); Total Hemoglobin 12.8 g/dL (12.0-18.0)
[2020-05-19 05:06] LABS: Device VENTILATOR; Modified Allen's Test Pass; Site Drawn RIGHT RADIAL
[2020-05-19 05:07] LABS: Arterial Blood Gas Minute Volume 100 LPM; Arterial Blood Gas PEEP 5 cmH2O; Arterial Blood Gas Vent Mode ASV
[2020-05-19] MEDS: PHENYTOIN SODIUM INJ 100 MG/2 ML VIAL (*BKC) IV PUSH ×3 (05:23→22:09)
[2020-05-19] MEDS: GLYCOPYRROLATE INJ (*SP) 0.2 MG/ML VIAL IV PUSH (05:23)
[2020-05-19] MEDS: polyethylene glycoL 3350 17 GM POWD.PACK PO (08:36)
[2020-05-19] MEDS: PANTOPRAZOLE SODIUM IV 40 MG VIAL IV PUSH (08:36)
[2020-05-19] MEDS: lamoTRIgine 100 MG TABLET FEED TUBE ×2 (08:36→17:19)
[2020-05-19] MEDS: GABAPENTIN 100 MG CAPSULE 200 MG PO ×3 (08:36→17:19)
--- NOTE | 2020-05-19 08:55 | P.PNIM_ITS ---
Progress Note: A&P Assessment and Plan (1) Acute and chronic respiratory failure with hypercapnia: Code(s): J96.22 - Acute and chronic respiratory failure with hypercapnia Status: Acute Assessment and Plan: * The patient presented with respiratory failure that worsened despite multiple re-evaluations and BiPAP adjustments; the patient ultimately required intubation on 05/14/20. * Patient remains intubated and sedated. 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 * Given the decline in the patient's pulmonary status, Rocephin and azithromycin added for empiric antibiotic coverage; D#6 * Scopolamine patch added for increased secretins; continue suctioning. 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 (4) HTN (hypertension): Code(s): I10 - Essential (primary) hypertension Status: Chronic Assessment and Plan: * Patient's blood pressure was reviewed on 05/19 * Blood pressure elevated at times remains well controlled * Will continue to hold ANIKA-inhibitor and Lasix (5) Seizure disorder: Code(s): G40.909 - Epilepsy, unspecified, not intractable, without status epilepticus Status: Acute Assessment and Plan: * Stable. No evidence of recurrence * continue lamictal, gabapentin and phenytoin * Check Dilantin level (6) E. coli UTI: Code(s): N39.0 - Urinary tract infection, site not specified; B96.20 - Unspecified Escherichia coli [E. coli] as the cause of diseases classified elsewhere Status: Acute Assessment and Plan: * UA noted; UCx growing EColi sensitive to Ceftriaxone * continue the same (7) DVT prophylaxis: Code(s): Z29.9 - Encounter for prophylactic measures, unspecified Status: Acute Assessment and Plan: * Xarelto Subjective Date/time seen: 05/19/20 08:55 Interval history: Date of visit 05/19 59-year-old white female with COPD on home oxygen presented with altered mental status and increasing shortness of breath and found to be in acute on chronic respiratory failure requiring intubation. Assuming care. Chart reviewed. Patient had a cuff issue requiring re-intuba tion overnight. Currently on fentanyl 150 and propofol 50. She had increasing secretions overnight. She is tolerating tube feeds. good urine output. Review of Systems Review of Systems: ROS unobtainable: Yes unobtainable due to endotracheal tube Exam Narrative: Exam Narrative: AF 98.1 104/64 90 15 94% MV Gen - Intubated and sedated HEENT - ET tube OG tube secured. Chest - Lungs clear anteriorly but coarse breath sounds in flanks. CV - RRR S1/S2. Telemetry showing occasional PVCs. Abd - Soft. Nondistended. Positive bowel sounds. - Martínez catheter secured draining clear yellow urine. Ext - No pedal edema. 2+ DP pulses bilaterally Neuro - unresponsive. Skin - Warm and dry
--- NOTE | 2020-05-19 08:55 | PM.IMPN ---
Progress Note: A&P Assessment and Plan (1) Acute and chronic respiratory failure with hypercapnia: Code(s): J96.22 - Acute and chronic respiratory failure with hypercapnia Status: Acute Assessment and Plan: The patient presented with respiratory failure that worsened despite multiple re-evaluations and BiPAP adjustments; the patient ultimately required intubation on 05/14/20. Patient remains intubated and sedated. currently on FiO2 45% Resp failure secondary to COPD exacerbation; chest x-ray reviewed personally showing no significant change on 05/19 Vent management per web page developer (2) Acute exacerbation of chronic obstructive pulmonary disease (COPD): Code(s): J44.1 - Chronic obstructive pulmonary disease with (acute) exacerbation Status: Acute Assessment and Plan: patient started on Solu-Medrol at 60 mg Q 6 hours and scheduled nebulizer treatments with albuterol and Atrovent. Given the decline in the patient's pulmonary status, Rocephin and azithromycin added for empiric antibiotic coverage; D#6 Scopolamine patch added for increased secretins; continue suctioning. 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 (4) HTN (hypertension): Code(s): I10 - Essential (primary) hypertension Status: Chronic Assessment and Plan: Patient's blood pressure was reviewed on 05/19 Blood pressure elevated at times remains well controlled Will continue to hold ANIKA-inhibitor and Lasix (5) Seizure disorder: Code(s): G40.909 - Epilepsy, unspecified, not intractable, without status epilepticus Status: Acute Assessment and Plan: Stable. No evidence of recurrence continue lamictal, gabapentin and phenytoin Check Dilantin level (6) E. coli UTI: Code(s): N39.0 - Urinary tract infection, site not specified; B96.20 - Unspecified Escherichia coli [E. coli] as the cause of diseases classified elsewhere Status: Acute Assessment and Plan: UA noted; UCx growing EColi sensitive to Ceftriaxone continue the same (7) DVT prophylaxis: Code(s): Z29.9 - Encounter for prophylactic measures, unspecified Status: Acute Assessment and Plan: Xarelto Subjective Date/time seen: 05/19/20 08:55 Interval history: Date of visit 05/19 59-year-old white female with COPD on home oxygen presented with altered mental status and increasing shortness of breath and found to be in acute on chronic respiratory failure requiring intubation. Assuming care. Chart reviewed. Patient had a cuff issue requiring re-intubation overnight. Currently on fentanyl 150 and propofol 50. She had increasing secretions overnight. She is tolerating tube feeds. good urine output. Review of Systems Review of Systems: ROS unobtainable: Yes unobtainable due to endotracheal tube Exam Narrative: Exam Narrative: AF 98.1 104/64 90 15 94% MV Gen - Intubated and sedated HEENT - ET tube OG tube secured. Chest - Lungs clear anteriorly but coarse breath sounds in flanks. CV - RRR S1/S2. Telemetry showing occasional PVCs. Abd - Soft. Nondistended. Positive bowel sounds. - Martínez catheter secured draining clear yellow urine. Ext - No pedal edema. 2+ DP pulses bilaterally Neuro - unresponsive. Skin - Warm and dry Objective Data Vital Signs Vital Signs: Vital Signs - 24 hr 05/18/20 09:06 05/18/20 10:00 05/18/20 10:54 Temperature Pulse Rate 96 110 H 117 H Respiratory Rate 22 H 22 H 22 H Blood Pressure 156/85 H Pulse Oximetry 97 05/18/20 11:08 05/18/20 11:38 05/18/20 11:42 Temperature 98.4 F Pulse Rate 106 H 96 97 Respiratory Rate 22 H 11 L Blood Pressure 138/79 Pulse Oximetry 93 93 05/18/20 11:53 05/18/20 11:54 05/18/20 12:00 Temperature
[2020-05-19] MEDS: BUDESONIDE RESPULE NEB 0.5 MG/2 ML AMP INHALATION ×2 (09:56→20:23)
--- NOTE | 2020-05-19 11:43 | PCDIET ---
Nutrition Follow-Up Complete: Nutrition Diagnosis: Inadequate oral intake related to oral intubation as evidenced by NPO status. Nutrition Goal: Patient to meet estimated nutritional needs. Goal met. Patient now receiving significant amount of calories from Propofol, so recommended decreased to 40mL/hr Vital 1.2. Patient has been tolerating tube feedings well. Last recorded weight is 87.2 kg which is stable. Bowel Motility: No documented BM as of yet. Discussed in rounds. Patient on Miralax. Labs Reviewed: Hgb (11.9), Hct (35.8), BUN (29), Cr (0.5), Na (131), PO4 (5.5) Meds Noted: Albuterol, Rocephin, Zithromax, Fentanyl, Atrovent, Ativan, Solu Medrol, Protonix, Dilantin, Miralax, Propofol (rate of 24.9mL/hr provides 657kcal over 24 hours/day) Additional Notes: No documented skin breakdown. Will continue to monitor with same goal. Nutrition Monitoring and Evaluation: Follow up every Monday/Monday. Follow daily in ICU rounds.
--- NOTE | 2020-05-19 14:21 | WPDINTPN ---
Progress Note: A&P Assessment and Plan (1) Acute and chronic respiratory failure with hypercapnia: Code(s): J96.22 - Acute and chronic respiratory failure with hypercapnia Status: Acute Assessment and Plan: acute on chronic respiratory failure with hypercapnia on ABGs, likely related to COPD exacerbation - chest x-ray and ABGs reviewed, patient currently on ASV mode - I trial patient on PSV 505 and she had a high RSBI and was agitated. Patient was sedated back and placed back on ASV mode - will try again with Precedex infusion to rule out anxiety component - Continue albuterol and Atrovent nebulizer - continue ceftriaxone and azithromycin - continue steroids - sedated with fentanyl propofol, maintain RASS of 0 to -2, daily sedation vacation - sputum culture 05/14: growth of normal oropharyngeal lelo - will diurese patient again today (2) Acute exacerbation of chronic obstructive pulmonary disease (COPD): Code(s): J44.1 - Chronic obstructive pulmonary disease with (acute) exacerbation Status: Acute Assessment and Plan: continue mechanical ventilation, steroids and bronchodilators - chest x-ray and ABGs in a.m. - continue guaifenesin per tube (3) E. coli UTI: Code(s): N39.0 - Urinary tract infection, site not specified; B96.20 - Unspecified Escherichia coli [E. 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 Status: Acute Assessment and Plan: patient has a history of DVT, on rivaroxaban (6) HTN (hypertension): Code(s): I10 - Essential (primary) hypertension Status: Chronic Assessment and Plan: history of essential hypertension, stable blood pressure (7) Dietary counseling and surveillance: Code(s): Z71.3 - Dietary counseling and surveillance Status: Acute Assessment and Plan: patient tolerating tube feeds (8) DVT prophylaxis: Code(s): Z29.9 - Encounter for prophylactic measures, unspecified Status: Acute Assessment and Plan: DVT prophylaxis: on rivaroxaban stress ulcer prophylaxis: Protonix Additional Plan will discuss with family and updated them with patient's condition code status: Full code critical care time spent: 35 minutes Due to a high probability of clinically significant, life threatening deterioration, the patient required my highest level of preparedness to intervene emergently and I personally spent this critical care time directly and personally managing the patient. This critical care time included obtaining a history; examining the patient; pulse oximetry; ordering and review of studies; arranging urgent treatment with development of a management plan; evaluation of patient's response to treatment; frequent reassessment; and discussions with other providers. It was exclusive of separately billable procedures and treating other patients and teaching time. Please see Assessment and Plan section and the rest of the note for further information on patient assessment and treatment Subjective Date/time seen: 05/19/20 Overnight events reviewed Afebrile Continues to be on mechanical ventilation Continues to be sedated with propofol and fentanyl Vitals acceptable Review of Systems Review of Systems: ROS unobtainable: Yes unobtainable due to endotracheal tube and unobtainable due to mental status Exam Const: General: comfortable and no acute distress HENMT: Other: ETT in place Eyes: Sclera: sclerae normal Pupils: Equal, round and reactive pupils prese
[2020-05-19] MEDS: FUROSEMIDE INJ 40 MG/4 ML VIAL IV PUSH (14:42)
[2020-05-19] MEDS: RIVAROXABAN 20 MG TABLET FEED TUBE (17:20)
[2020-05-19] MEDS: PROPOFOL IV EMULSION 100 ML 19.9 MG IV CONT (19:40)
[2020-05-20] VITALS (27 sets, daily range): BP systolic 96–126; BP diastolic 47–106; PULSE 58–95; RESP 18–95; TEMP 36.6–36.9; O2SAT 91–100
[2020-05-20] MEDS: PROPOFOL IV EMULSION 100 ML 24.9 MG IV CONT
[2020-05-20] MEDS: methylPREDNISolone SOD SUCC 125 MG VIAL 60 MG IV PUSH ×2 (00:02→06:00)
[2020-05-20] MEDS: guaiFENesin/DEXTROMETHORPHAN 10 ML UDC PO ×6 (00:03→23:59)
[2020-05-20] MEDS: IPRATROPIUM BR 0.02% INH SOLN 0.5 MG/2.5 ML VIAL INHALATION ×4 (02:16→20:41)
[2020-05-20] MEDS: ALBUTEROL SULFATE NEB 2.5 MG/0.5 ML INH 5 MG INHALATION ×4 (02:16→20:40)
[2020-05-20 04:45] LABS: Alveolar/Arterial O2 Gradient 335.5 mmHg; Base Excess ABG 8.7 mEq/l (+/-2.0); Carboxyhemoglobin 0.3 % THb (0-2.0); Fractional Inspired Oxygen 100 %; HCO3 ABG 32.8 mEq/l (22.0-26.0); Methemoglobin ABG 0.4 %THb (0-1.5); Oxygen Content ABG 17.7 %vol (16.0-22.0); Oxygen Saturation ABG 99.8 % (95.0-100.0); Oxyhemoglobin 98.4 % THb (90.0-100.0); PO2 ABG 334.5 mmHg (80.0-100.0); PO2 FiO2 Ratio Arterial Blood 3.35 %; Reduced Hemoglobin 0.9 %THb (0-5.0); Total Hemoglobin 12.2 g/dL (12.0-18.0)
[2020-05-20 04:46] LABS: Device VENTILATOR; Modified Allen's Test Unable to perform; Site Drawn RIGHT RADIAL
[2020-05-20 04:48] LABS: Arterial Blood Gas Minute Volume 100 LPM; Arterial Blood Gas PEEP 5 cmH2O; Arterial Blood Gas Vent Mode ASV
[2020-05-20 05:18] LABS: Hematocrit 34.3 % (37.0-47.0); Hemoglobin 11.4 g/dL (12.0-15.0); Mean Corpuscular HGB Conc 33.2 g/dl (32-36); Mean Corpuscular Hemoglobin 30.9 pg (26-34); Mean Platelet Volume 10.4 fl (7.4-10.4); Platelet Count Result 291 k/mm3 (150-375); Red Blood Count 3.69 M/mm3 (4.2-5.4); Red Cell Distribution Width 11.9 % (11.5-14.5); White Blood Count 12.1 K/mm3 (4.5-10.0)
[2020-05-20 05:33] LABS: Anion Gap 8 mmol/L (8-16); Blood Urea Nitrogen 35 mg/dL (7-17); Calcium 8.6 mg/dL (8.4-10.2); Carbon Dioxide 34 mmol/L (22-30); Chloride 87 mmol/L (98-107); Estimated CRCL calculation 96 ml/min; Estimated Glomerular Filt Rate > 60; Glucose 162 mg/dL (65-105); Magnesium 2.6 mg/dL (1.6-2.3); Potassium 4.6 mmol/L (3.4-5.0); Sodium 129 mmol/L (137-145)
[2020-05-20 05:36] LABS: Phenytoin Dilantin 3 ug/mL (10-20)
[2020-05-20] MEDS: PHENYTOIN SODIUM INJ 100 MG/2 ML VIAL (*BKC) IV PUSH ×3 (06:00→21:19)
[2020-05-20 08:15] LABS: Alveolar/Arterial O2 Gradient 241.6 mmHg; Arterial Blood Gas PEEP 5 cmH2O; Arterial Blood Gas Vent Mode ASV; Base Excess ABG 8.4 mEq/l (+/-2.0); Device VENTILATOR; Fractional Inspired Oxygen 50 %; HCO3 ABG 32.8 mEq/l (22.0-26.0); Modified Allen's Test Pass; Oxygen Content ABG 15.9 %vol (16.0-22.0); Oxygen Saturation ABG 93.8 % (95.0-100.0); PCO2 ABG 44.9 mmHg (35.0-45.0); PO2 ABG 64.4 mmHg (80.0-100.0); PO2 FiO2 Ratio Arterial Blood 1.29 %; Site Drawn LEFT RADIAL; Total Hemoglobin 12.3 g/dL (12.0-18.0); pH ABG 7.482 (7.350-7.450)
[2020-05-20] MEDS: BUDESONIDE RESPULE NEB 0.5 MG/2 ML AMP INHALATION ×2 (08:23→20:40)
[2020-05-20] MEDS: PANTOPRAZOLE SODIUM IV 40 MG VIAL IV PUSH (08:56)
--- NOTE | 2020-05-20 11:01 | P.PNIM_ITS ---
Progress Note: A&P Assessment and Plan (1) Acute and chronic respiratory failure with hypercapnia: Code(s): J96.22 - Acute and chronic respiratory failure with hypercapnia Status: Acute Assessment and Plan: * The patient presented with respiratory failure that worsened despite multiple re-evaluations and BiPAP adjustments; the patient ultimately required intubation on 05/14/20. * Resp failure secondary to COPD exacerbation * Patient stablized and was able to be extubated 05/20/20 * Currently on 3L NC which is her baseline. (2) Acute exacerbation of chronic obstructive pulmonary disease (COPD): Code(s): J44.1 - Chronic obstructive pulmonary disease with (acute) exacerbation Status: Acute Assessment and Plan: * patient started on Solu-Medrol at 60 mg Q 6 hours and scheduled nebulizer treatments with albuterol and Atrovent. * Given the decline in the patient's pulmonary status, Rocephin and azithromycin added for empiric antibiotic coverage; D#7 * Stop abx after today (3) Dementia: Code(s): F03.90 - Unspecified dementia without behavioral disturbance Status: Chronic Assessment and Plan: * Patient has hx of dementia but ciron appears to have denied this in the past * Patient alert but confused possibly related to dementia. She is however still on Precedex. * Wean Precedex. Continue to try to more. * Start PT OT (4) Chronic anticoagulation: Code(s): Z79.01 - custodial (current) use of anticoagulants Status: Acute Assessment and Plan: * Continue Xarelto given her hx of DVT * Hgb 11 (5) HTN (hypertension): Code(s): I10 - Essential (primary) hypertension Status: Chronic Assessment and Plan: * Patient's blood pressure was reviewed on 05/20 * Blood pressure remains well controlled * Will continue to hold ANIKA-inhibitor and Lasix (6) Seizure disorder: Code(s): G40.909 - Epilepsy, unspecified, not intractable, without status epilepticus Status: Acute Assessment and Plan: * Stable. No evidence of seizure activity * Dilantin level okay. * continue lamictal, gabapentin and phenytoin (7) E. coli UTI: Code(s): N39.0 - Urinary tract infection, site not specified; B96.20 - Unspecified Escherichia coli [E. coli] as the cause of diseases classified elsewhere Status: Acute Assessment and Plan: * UA noted; UCx growing EColi sensitive to Ceftriaxone * Continue the same through today (8) DVT prophylaxis: Code(s): Z29.9 - Encounter for prophylactic measures, unspecified Status: Acute Assessment and Plan: * Pam Subjective Date/time seen: 05/20/20 11:01 Interval history: Date of visit 05/20 59-year-old white female with COPD on home oxygen presented with altered mental status and increasing shortness of breath and found to be in acute on chronic respiratory failure requiring intubation. Patient extubated this morning. She is alert but confused. She denies CP or SOB. Exam Narrative: Exam Narrative: AF 98.2 126/52 64 25 94% 3L Gen - NARD Chest - few scattered rhonchi, nml RR CV - RRR S1/S2 Abd - soft, NT/ND, +BS - Martínez catheter secured draining clear yellow urine. Ext - No pedal edema. 2+ DP pulses bilaterally Neuro - alert, confused Skin - Warm and dry Objective Data Vital Signs Vital Signs: Vital Signs - 24 hr 05/19/20 12:00
--- NOTE | 2020-05-20 11:01 | PM.IMPN ---
Progress Note: A&P Assessment and Plan (1) Acute and chronic respiratory failure with hypercapnia: Code(s): J96.22 - Acute and chronic respiratory failure with hypercapnia Status: Acute Assessment and Plan: The patient presented with respiratory failure that worsened despite multiple re-evaluations and BiPAP adjustments; the patient ultimately required intubation on 05/14/20. Resp failure secondary to COPD exacerbation Patient stablized and was able to be extubated 05/20/20 Currently on 3L NC which is her baseline. (2) Acute exacerbation of chronic obstructive pulmonary disease (COPD): Code(s): J44.1 - Chronic obstructive pulmonary disease with (acute) exacerbation Status: Acute Assessment and Plan: patient started on Solu-Medrol at 60 mg Q 6 hours and scheduled nebulizer treatments with albuterol and Atrovent. Given the decline in the patient's pulmonary status, Rocephin and azithromycin added for empiric antibiotic coverage; D#7 Stop abx after today (3) Dementia: Code(s): F03.90 - Unspecified dementia without behavioral disturbance Status: Chronic Assessment and Plan: Patient has hx of dementia but gary appears to have denied this in the past Patient alert but confused possibly related to dementia. She is however still on Precedex. Wean Precedex. Continue to try to more. 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 No evidence of seizure activity Dilantin level okay. continue lamictal, gabapentin and phenytoin (7) E. coli UTI: Code(s): N39.0 - Urinary tract infection, site not specified; B96.20 - Unspecified Escherichia coli [E. coli] as the cause of diseases classified elsewhere Status: Acute Assessment and Plan: UA noted; UCx growing EColi sensitive to Ceftriaxone Continue the same through today (8) DVT prophylaxis: Code(s): Z29.9 - Encounter for prophylactic measures, unspecified Status: Acute Assessment and Plan: Pam Cunningham Date/time seen: 05/20/20 11:01 Interval history: Date of visit 05/20 59-year-old white female with COPD on home oxygen presented with altered mental status and increasing shortness of breath and found to be in acute on chronic respiratory failure requiring intubation. Patient extubated this morning. She is alert but confused. She denies CP or SOB. Exam Narrative: Exam Narrative: AF 98.2 126/52 64 25 94% 3L Gen - NARD Chest - few scattered rhonchi, nml RR CV - RRR S1/S2 Abd - soft, NT/ND, +BS - Martínez catheter secured draining clear yellow urine. Ext - No pedal edema. 2+ DP pulses bilaterally Neuro - alert, confused Skin - Warm and dry Objective Data Vital Signs Vital Signs: Vital Signs - 24 hr 05/19/20 12:00 05/19/20 14:00 05/19/20 14:17 Temperature 98.6 F Pulse Rate 100 90 91 Respiratory Rate 16 12 13 Blood Pressure 153/77 H 132/71 Pulse Oximetry 91 96 05/19/20 14:20 05/19/20 14:24 05/19/20 16:00 Temperature 98.1 F Pulse Rate 90 89 86 Respiratory Rate 13 10 L Blood Pressure 106/63 Pulse Oximetry 94 92 05/19/20 17:07 05/19/20 17:30 05/19/20 17:50 Temperature Pulse Rate 83 84 87 Respiratory Rate 12 11 L Blood Pressure Pulse Oximetry 98 05/19/20 18:00 05/19/20 18:34 05/19/20 19:40 Temperat
--- NOTE | 2020-05-20 11:12 | PCDIET ---
ICU Rounding Note: Patient extubated with plan to advance diet today. Took sips of water without difficulty, per RN. Last recorded weight is 85.2kg which is down from last review. -I/O. Bowel Motility: No documented BM as of yet - discussed during rounds - Miralax continued. Labs Reviewed: Hgb (11.4), Hct (34.3), BUN (35), Cr (0.6), Na (129), PO4 (5.0) Meds Noted: Albuterol, Rocephin, Precedex, Fentanyl, Atrovent, Ativan, Solu Medrol, Protonix, Dilantin IV, Miralax Additional Notes: No documented skin breakdown. Following daily in ICU rounds. Assessing/reassessing every 3 days.
--- NOTE | 2020-05-20 12:28 | WPDINTPN ---
Progress Note: A&P Assessment and Plan (1) Acute and chronic respiratory failure with hypercapnia: Code(s): J96.22 - Acute and chronic respiratory failure with hypercapnia Status: Acute Assessment and Plan: acute on chronic respiratory failure with hypercapnia on ABGs, likely related to COPD exacerbation - chest x-ray and ABGs reviewed, patient currently on ASV mode - 5/5 PSV SBT done while on Precedex to combat agitation and anxiety for more than 1 hour. RSBI, ABGI and Vitals acceptable. Pt awake and following commands. Will extubate and monitor. NPO for now. may need Bipap PRN - will try to wean off Precedex - Continue albuterol and Atrovent nebulizer - continue ceftriaxone and azithromycin - continue steroids but decrease dose - sputum culture 05/14: growth of normal oropharyngeal lelo (2) Acute exacerbation of chronic obstructive pulmonary disease (COPD): Code(s): J44.1 - Chronic obstructive pulmonary disease with (acute) exacerbation Status: Acute Assessment and Plan: continue mechanical ventilation, steroids and bronchodilators - continue guaifenesin (3) E. coli UTI: Code(s): N39.0 - Urinary tract infection, site not specified; B96.20 - Unspecified Escherichia coli [E. 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 Status: Acute Assessment and Plan: patient has a history of DVT, on rivaroxaban (6) HTN (hypertension): Code(s): I10 - Essential (primary) hypertension Status: Chronic Assessment and Plan: history of essential hypertension, stable blood pressure (7) Dietary counseling and surveillance: Code(s): Z71.3 - Dietary counseling and surveillance Status: Acute Assessment and Plan: advance diet post extubation (8) DVT prophylaxis: Code(s): Z29.9 - Encounter for prophylactic measures, unspecified Status: Acute Assessment and Plan: DVT prophylaxis: on rivaroxaban stress ulcer prophylaxis: Protonix Additional Plan code status: Full code critical care time spent: 30 minutes Due to a high probability of clinically significant, life threatening deterioration, the patient required my highest level of preparedness to intervene emergently and I personally spent this critical care time directly and personally managing the patient. This critical care time included obtaining a history; examining the patient; pulse oximetry; ordering and review of studies; arranging urgent treatment with development of a management plan; evaluation of patient's response to treatment; frequent reassessment; and discussions with other providers. It was exclusive of separately billable procedures and treating other patients and teaching time. Please see Assessment and Plan section and the rest of the note for further information on patient assessment and treatment Subjective Date/time seen: 05/20/20 Overnight events reviewed Afebrile Continues to be on mechanical ventilation Continues to be Sedated with propofol and Precedex Follows commands Vitals acceptable Review of Systems Review of Systems: ROS unobtainable: Yes unobtainable due to endotracheal tube and unobtainable due to mental status Exam Const: General: comfortable and no acute distress HENMT: Other: ETT in place Eyes: Sclera: sclerae normal Pupils: Equal, round and reactive pupils present Neck: Neck: supple and no JVD Resp: Effort & Inspection: normal respiratory effort Auscultation: rhonchi, wheezes and diminis
[2020-05-20] MEDS: LORazepam INJ (*CRX) 2 MG/ML VIAL 1 MG IV PUSH ×3 (14:08→20:15)
[2020-05-20] MEDS: polyethylene glycoL 3350 17 GM POWD.PACK PO (14:39)
[2020-05-20] MEDS: GABAPENTIN 100 MG CAPSULE 200 MG PO ×2 (14:39→17:53)
[2020-05-20] MEDS: lamoTRIgine 100 MG TABLET FEED TUBE (17:53)
[2020-05-20] MEDS: RIVAROXABAN 20 MG TABLET FEED TUBE (17:54)
[2020-05-21] VITALS (18 sets, daily range): BP systolic 88–144; BP diastolic 46–87; PULSE 56–102; RESP 18–25; TEMP 36.6–37.2; O2SAT 94–99
[2020-05-21] MEDS: ALBUTEROL SULFATE NEB 2.5 MG/0.5 ML INH 5 MG INHALATION ×4 (02:01→20:12)
[2020-05-21] MEDS: IPRATROPIUM BR 0.02% INH SOLN 0.5 MG/2.5 ML VIAL INHALATION ×4 (02:01→20:13)
[2020-05-21] MEDS: LORazepam INJ (*CRX) 2 MG/ML VIAL 1 MG IV PUSH ×2 (02:08→09:03)
[2020-05-21] MEDS: guaiFENesin/DEXTROMETHORPHAN 10 ML UDC PO ×3 (04:21→22:20)
[2020-05-21 04:26] LABS: Hematocrit 33.8 % (37.0-47.0); Hemoglobin 11.1 g/dL (12.0-15.0); Mean Corpuscular HGB Conc 32.8 g/dl (32-36); Mean Corpuscular Hemoglobin 30.9 pg (26-34); Mean Corpuscular Volume 94.2 fl (80-100); Mean Platelet Volume 10.2 fl (7.4-10.4); Platelet Count Result 260 k/mm3 (150-375); Red Blood Count 3.59 M/mm3 (4.2-5.4); Red Cell Distribution Width 11.9 % (11.5-14.5); White Blood Count 11.6 K/mm3 (4.5-10.0)
[2020-05-21 04:49] LABS: Albumin Level 3.3 g/dL (3.5-5.1); Anion Gap 5 mmol/L (8-16); Blood Urea Nitrogen 29 mg/dL (7-17); Calcium 8.5 mg/dL (8.4-10.2); Carbon Dioxide 31 mmol/L (22-30); Chloride 93 mmol/L (98-107); Estimated CRCL calculation 95 ml/min; Estimated Glomerular Filt Rate > 60; Glucose 117 mg/dL (65-105); Magnesium 2.5 mg/dL (1.6-2.3); Phosphorus 3.9 mg/dL (2.5-4.5); Potassium 3.9 mmol/L (3.4-5.0); Sodium 129 mmol/L (137-145)
[2020-05-21] MEDS: PHENYTOIN SODIUM INJ 100 MG/2 ML VIAL (*BKC) IV PUSH ×2 (05:04→13:30)
[2020-05-21] MEDS: BUDESONIDE RESPULE NEB 0.5 MG/2 ML AMP INHALATION ×2 (08:30→20:13)
--- NOTE | 2020-05-21 08:57 | PM.IMPN ---
Progress Note: A&P Assessment and Plan (1) Acute and chronic respiratory failure with hypercapnia: Code(s): J96.22 - Acute and chronic respiratory failure with hypercapnia Status: Acute Assessment and Plan: The patient presented with respiratory failure that worsened despite multiple re-evaluations and BiPAP adjustments; the patient ultimately required intubation on 05/14/20. Resp failure secondary to COPD exacerbation. Patient stablized and was able to be extubated 05/20/20. Currently on 3L NC which is her baseline. (2) Acute exacerbation of chronic obstructive pulmonary disease (COPD): Code(s): J44.1 - Chronic obstructive pulmonary disease with (acute) exacerbation Status: Acute Assessment and Plan: Patient started on Solu-Medrol at 60 mg Q 6 hours and scheduled nebulizer treatments with albuterol and Atrovent. Given the decline in the patient's pulmonary status, Rocephin and azithromycin added for empiric antibiotic coverage; Abx stopped after 7 days of treatment. Continue to wean steroids. (3) Dementia: Code(s): F03.90 - Unspecified dementia without behavioral disturbance Status: Chronic Assessment and Plan: Patient has hx of dementia listed but patient appears to have denied this in the past. She is not on medications for dementia. Patient is alert but confused possibly related to dementia but could be ICU (or steroids) psychosis and she is still on Precedex. Wean Precedex. Have her up to the chair. Continue PT/OT. (4) Chronic anticoagulation: Code(s): Z79.01 - custodial (current) use of anticoagulants Status: Acute Assessment and Plan: Continue Xarelto given her hx of DVT. Hgb 11.1 (5) HTN (hypertension): Code(s): I10 - Essential (primary) hypertension Status: Chronic Assessment and Plan: Patient's blood pressure was reviewed on 05/21 Blood pressure remains well controlled. Will continue to hold ANIKA-inhibitor and Lasix (6) Seizure disorder: Code(s): G40.909 - Epilepsy, unspecified, not intractable, without status epilepticus Status: Acute Assessment and Plan: Stable. No evidence of seizure activity. Dilantin level okay. Continue lamictal, gabapentin and phenytoin (7) E. coli UTI: Code(s): N39.0 - Urinary tract infection, site not specified; B96.20 - Unspecified Escherichia coli [E. coli] as the cause of diseases classified elsewhere Status: Acute Assessment and Plan: UA noted; UCx growing EColi sensitive to Ceftriaxone. Completed 7 days of treatment. (8) DVT prophylaxis: Code(s): Z29.9 - Encounter for prophylactic measures, unspecified Status: Acute Assessment and Plan: Pam Subjective Date/time seen: 05/21/20 08:57 Interval history: Date of visit 05/21 59-year-old white female with COPD on home oxygen presented with altered mental status and increasing shortness of breath and found to be in acute on chronic respiratory failure requiring intubation. Patient extubated 05/20. Patient still on Precedex. She is on 3 L which is her home dose of oxygen. Martínez was removed because of her agitation. She is voiding well since Martínez has been removed. Patient unable to provide history. She is alert but confused. Review of Systems Review of Systems: ROS unobtainable: Yes unobtainable due to mental status Exam Narrative: Exam Narrative: AF 97.9 101/81 23 94% 3L Gen - NARD lying semi recumbent in bed in restraints Chest - left basilar crackles appreciated in the flanks. Clear anteriorly. CV - RRR S1/S2. Telemetry showing no significant dysrhythmias Abd - soft, NT/ND, +BS Ext - No pedal edema. Neuro - alert, confused Skin - Warm and dry Objective Data Vital Signs Vital Signs: Vital Signs - 24 hr 05/20/20 10:00 05/20/20 12:00 05/20/20 14:00 Temperature 98.1 F Pulse Rate 74 67 61 Respiratory Rate 24 H 21 H 21 H Bl
[2020-05-21] MEDS: methylPREDNISolone SOD SUCC 125 MG VIAL 60 MG IV PUSH (09:04)
[2020-05-21] MEDS: polyethylene glycoL 3350 17 GM POWD.PACK PO (09:10)
[2020-05-21] MEDS: GABAPENTIN 100 MG CAPSULE 200 MG PO ×3 (09:11→17:39)
[2020-05-21] MEDS: lamoTRIgine 100 MG TABLET FEED TUBE ×2 (09:11→17:39)
--- NOTE | 2020-05-21 10:43 | PCDIET ---
ICU Rounding Note: Pt current nutrition is Regular Nutrition recommendation: Agree Last recorded weight is 83.6kg, down from last wt of 85.2kg Bowel Motility: No BM since . PT to have up today. Recommend motility agent if not BM in next 24hrs Labs Reviewed:Hgb 11.1, Hct 33.8, Alb 3.3, Na 129, BUN 29, Cr .6, Glucose 117 Meds Noted:Albuterol, solumedrol, dilantin, miralax, +xanax today Additional Notes: Pt extubated, A&Ox1. Pt on a regular diet which is appropriate. No intakes yet. Recommend assistance with feedings due to AMS. If PO intake does not start to improve, we will offer nutrition supplements. Protective Mepilex on coccyx at this time. Following every 5 days to monitor for adequate PO intake.
--- NOTE | 2020-05-21 10:45 | WPDINTPN ---
Progress Note: A&P Assessment and Plan (1) Acute and chronic respiratory failure with hypercapnia: Code(s): J96.22 - Acute and chronic respiratory failure with hypercapnia Status: Acute Assessment and Plan: acute on chronic respiratory failure with hypercapnia on ABGs, likely related to COPD exacerbation - 05/20 extubated after successful weaning trial. Saturating well on nasal cannula - aggressive incentive spirometry if patient participated - out of bed - Continue albuterol and Atrovent nebulizer - completed course of ceftriaxone and azithromycin - continue steroids but decrease dose and change to p.o. - sputum culture 05/14: growth of normal oropharyngeal lelo (2) Acute exacerbation of chronic obstructive pulmonary disease (COPD): Code(s): J44.1 - Chronic obstructive pulmonary disease with (acute) exacerbation Status: Acute Assessment and Plan: continue steroids and bronchodilators also on guaifenesin which I would discontinue (3) E. coli UTI: Code(s): N39.0 - Urinary tract infection, site not specified; B96.20 - Unspecified Escherichia coli [E. 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 Status: Acute Assessment and Plan: patient has a history of DVT, on rivaroxaban (6) HTN (hypertension): Code(s): I10 - Essential (primary) hypertension Status: Chronic Assessment and Plan: history of essential hypertension, stable blood pressure (7) Dietary counseling and surveillance: Code(s): Z71.3 - Dietary counseling and surveillance Status: Acute Assessment and Plan: advance diet post extubation (8) DVT prophylaxis: Code(s): Z29.9 - Encounter for prophylactic measures, unspecified Status: Acute Assessment and Plan: DVT prophylaxis: on rivaroxaban stress ulcer prophylaxis: Protonix (9) Delirium: Code(s): R41.0 - Disorientation, unspecified Status: Acute Assessment and Plan: is improving slowly. Will continue to wean down Precedex this morning and tried to get her off. minimize use of benzodiazepines for anxiety or agitation PT OT consult Additional Plan Code status: Full code Subjective Date/time seen: 05/21/20 overnight events reviewed. Patient was extubated yesterday. Saturating well on nasal cannula with no respiratory distress. She is still on Precedex infusion due to confusion and agitation. This morning patient is awake but confused and unable to provide any meaningful history. She dodes no to shortness of breath. She does nod her head yes to pain but unable to point to the location or give me any details about pain. She is oriented x1 only Review of Systems Review of Systems: ROS unobtainable: Yes unobtainable due to mental status Exam Narrative: Exam Narrative: General: Pt is alert awake and in NAD confused Lungs/Chest: Trachea central Clear BS B/L, No crackles or wheezing. Cardiac: RRR. Normal S1 S2. No murmurs Circulation: Pedal pulses are intact and symmetrical. Abdomen: Normal bowel sounds.. Soft. NT. ND. Extremities: No clubbing, cyanosis or edema. Warm : Martínez in place Neurologic: she is confused with inappropriate speech. she Follows commands. Moves all 4 extremities PERRL she is only oriented x1 Skin: No Rash Objective Data Vital Signs Vital Signs: Vital Signs - 24 hr 05/20/20 12:00 05/20/20 14:00 05/20/20 14:10 Temperature 36.7 C Pulse Rate 67 61 58 L Respiratory Rate 21 H 21 H 25 H Blood Pressure 101/85 1
[2020-05-21] MEDS: ALPRAZolam (*CRX) 0.5 MG TABLET PO ×2 (11:10→20:59)
[2020-05-21] MEDS: PHENYTOIN SODIUM 100 MG CAP PO (17:41)
[2020-05-21] MEDS: RIVAROXABAN 20 MG TABLET FEED TUBE (17:41)
[2020-05-21] MEDS: SCOPOLAMINE 1.5 MG PATCH TRANSDERM (21:00)
--- NOTE | 2020-05-21 21:48 | PC.NURSE ---
Received pt from [facility] at [id number]. Report received from Naomi.
--- NOTE | 2020-05-21 22:09 | PC.NURSE ---
This patient, Mary Alice Hall, was transferred to [facility] on 05/21/20 at 2145. Personal belongings sent with patient. Belongings list checked. Report given to Lou HOBBS. Appropriate documentation sent with patient.
[2020-05-21] MEDS: ACETAMINOPHEN 325 MG TABLET 650 MG PO (22:20)
[2020-05-22] VITALS (12 sets, daily range): BP systolic 123–137; BP diastolic 55–65; PULSE 62–103; RESP 20–22; TEMP 36.2–36.7; O2SAT 93–97
[2020-05-22] MEDS: MELATONIN 3 MG TABLET PO (01:52)
[2020-05-22] MEDS: IPRATROPIUM BR 0.02% INH SOLN 0.5 MG/2.5 ML VIAL INHALATION ×4 (03:00→19:33)
[2020-05-22] MEDS: ALBUTEROL SULFATE NEB 2.5 MG/0.5 ML INH 5 MG INHALATION ×4 (03:00→19:33)
[2020-05-22] MEDS: ACETAMINOPHEN 325 MG TABLET 650 MG PO ×2 (05:41→09:38)
[2020-05-22] MEDS: ALPRAZolam (*CRX) 0.5 MG TABLET PO ×2 (05:41→11:47)
[2020-05-22] MEDS: guaiFENesin/DEXTROMETHORPHAN 10 ML UDC PO ×2 (05:42→12:48)
[2020-05-22 07:46] LABS: Hematocrit 34.8 % (37.0-47.0); Hemoglobin 11.4 g/dL (12.0-15.0); Mean Corpuscular HGB Conc 32.8 g/dl (32-36); Mean Corpuscular Volume 91.6 fl (80-100); Mean Platelet Volume 9.7 fl (7.4-10.4); Platelet Count Result 317 k/mm3 (150-375)
[2020-05-22 08:02] LABS: Anion Gap 5 mmol/L (8-16); Blood Urea Nitrogen 21 mg/dL (7-17); Calcium 8.5 mg/dL (8.4-10.2); Carbon Dioxide 28 mmol/L (22-30); Chloride 96 mmol/L (98-107); Estimated CRCL calculation 98 ml/min; Estimated Glomerular Filt Rate > 60; Glucose 101 mg/dL (65-105); Sodium 129 mmol/L (137-145)
[2020-05-22] MEDS: PHENYTOIN SODIUM 100 MG CAP PO ×3 (09:05→16:42)
[2020-05-22] MEDS: predniSONE 20 MG TABLET 40 MG PO (09:06)
[2020-05-22] MEDS: VENLAFAXINE HCL XR 75 MG CAP.ER.24H 150 MG PO (09:06)
[2020-05-22] MEDS: GABAPENTIN 100 MG CAPSULE 200 MG PO ×3 (09:07→16:42)
[2020-05-22] MEDS: BUDESONIDE RESPULE NEB 0.5 MG/2 ML AMP INHALATION ×2 (09:13→19:32)
[2020-05-22] MEDS: lamoTRIgine 100 MG TABLET PO ×2 (09:31→16:42)
[2020-05-22] MEDS: NICOTINE (*PBKC) 7 MG PATCH 1 PATCH TRANSDERM (11:48)
[2020-05-22] MEDS: RIVAROXABAN 20 MG TABLET PO (16:42)
--- NOTE | 2020-05-22 18:34 | PM.DS ---
DS: Admitting Diagnosis Admitting Diagnosis Admitting Diagnosis: Acute on chronic respiratory failure with DS: Discharge Diagnosis Discharge Diagnosis (1) Acute and chronic respiratory failure with hypercapnia: Code(s): J96.22 - Acute and chronic respiratory failure with hypercapnia Status: Acute Assessment and Plan: The patient presented with respiratory failure that worsened despite multiple re-evaluations and BiPAP adjustments; the patient ultimately required intubation on 05/14/20. Resp failure secondary to COPD exacerbation. Patient stabilized and was able to be extubated 05/20/20. Back on 3L NC which is her baseline. (2) Acute exacerbation of chronic obstructive pulmonary disease (COPD): Code(s): J44.1 - Chronic obstructive pulmonary disease with (acute) exacerbation Status: Acute Assessment and Plan: Patient started on Solu-Medrol at 60 mg Q 6 hours and scheduled nebulizer treatments with albuterol and Atrovent. Given the decline in the patient's pulmonary status, Rocephin and azithromycin added for empiric antibiotic coverage; Abx stopped after 7 days of treatment. Steroids being weaned (3) Dementia: Code(s): F03.90 - Unspecified dementia without behavioral disturbance Status: Chronic Assessment and Plan: Patient has hx of dementia listed but patient appears to have denied this in the past. She is not on medications for dementia. Patient is alert but confused. Family confirms that patient has baseline confusion. . 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 (5) HTN (hypertension): Code(s): I10 - Essential (primary) hypertension Status: Chronic Assessment and Plan: Patient's blood pressure was monitored. Blood pressure remained well controlled. (6) Seizure disorder: Code(s): G40.909 - Epilepsy, unspecified, not intractable, without status epilepticus Status: Acute Assessment and Plan: Stable. No evidence of seizure activity. Dilantin level okay. We continued lamictal, gabapentin and phenytoin (7) E. coli UTI: Code(s): N39.0 - Urinary tract infection, site not specified; B96.20 - Unspecified Escherichia coli [E. coli] as the cause of diseases classified elsewhere Status: Acute Assessment and Plan: UA noted; UCx growing EColi sensitive to Ceftriaxone. Completed 7 days of treatment. DS: Summary Hospital Course Reason for hospitalization: 59yo female here for acute respiratory failure. Please see H&P for details Hospital Course: As above Time Spent with Patient Time attestation: Total time spent providing and/or coordinating discharge services:36 minutes Time spent: Greater than 30 minutes Specific discharge activities: discussed with patient, staff and family. Exam Narrative: Exam Narrative: No SOB or CP. Had diarrhea earlier today but it has slowed considerably now. Eating better AF 98.0 137/65 88 20 93% 3L Gen - NARD Chest - distatn BS with few scattered rhonchi CV - RRR S1/S2 Abd - soft, NT/ND, +BS Ext - No pedal edema. Neuro - alert, confused Skin - Warm and dry DS: Data Data Completed and Pending Labs on day of discharge: Labs from last 24 hours 05/22/20 05/22/20 07:34 07:34 WBC 10.0 RBC 3.80 L Hgb 11.4 L Hct 34.8 L MCV 91.6 MCH 30.0 MCHC 32.8 RDW 12.0 Plt Count 317 MPV 9.7 Sodium 129 L Potassium 4.0 Chloride 96 L Carbon Dioxide 28 Anion Gap 5 L BUN 21 H Creatinine 0.60 L Estim Creat Clear Calc 98 Estimated GFR > 60 Glucose 101 Calcium 8.5 Discharge Plan Discharge Attending physician on discharge: Paco Guillen Consulting providers: Zarina Becerra Discharging Clinician: Paco Guillen Anticipated Discharge Date/Ti
== END 2020-05-22 20:07 | disposition home health service (06) | DRG 207 ==
LOC: ANHED 23:04 → ANHIMU 23:47 → ANHICU 05-14 10:44 → ANH2MED 05-22 16:05 → ANHICU 05-25 14:22 → ANHIMU 05-25 14:22
PROVIDERS: Emergency Medicine; Internal Medicine; Admitting Provider Internal Medicine; Emergency Provider Emergency Medicine; PCP Internal Medicine; Visit Provider Internal Medicine
DX: J44.1 Chronic obstructive pulmonary disease with (acute) exacerbation (principal); J96.22 Acute and chronic respiratory failure with hypercapnia; J96.21 Acute and chronic respiratory failure with hypoxia; N39.0 Urinary tract infection, site not specified; I50.32 Chronic diastolic (congestive) heart failure; G93.40 Encephalopathy, unspecified; B96.20 Unspecified Escherichia coli [E. coli] as the cause of diseases classified elsewhere; F03.90 Unspecified dementia, unspecified severity, without behavioral disturbance, psychotic disturbance, mood disturbance, and anxiety; I25.10 Atherosclerotic heart disease of native coronary artery without angina pectoris; G40.909 Epilepsy, unspecified, not intractable, without status epilepticus; M19.90 Unspecified osteoarthritis, unspecified site; G89.4 Chronic pain syndrome; F41.8 Other specified anxiety disorders; E78.5 Hyperlipidemia, unspecified; G47.33 Obstructive sleep apnea (adult) (pediatric); F17.290 Nicotine dependence, other tobacco product, uncomplicated; G62.9 Polyneuropathy, unspecified; Z79.01 Long term (current) use of anticoagulants; Z86.718 Personal history of other venous thrombosis and embolism; Z99.81 Dependence on supplemental oxygen
CPT/HCPCS: 31500; 36415; 36600; 51701; 71045; 80048; 80053; 80069; 80185; 80307; 81001; 82375; 82805; 83050; 83605; 83735; 84100; 85025; 85027; 85610; 85730; 87040; 87070; 87077; 87086; 87088; 87186; 87205; 94002; 94003; 94640; 94660; 97110; 97116; 97161; 97166; 97535; 99285; A9270; C9113; J0330; J0456; J0696; J1165; J1940; J2060; J2250; J2310; J2704; J2930; J3010; J7512

== ENCOUNTER 2020-07-14 05:03 | Inpatient (IN) | payer MEDICARE, MEDICAID, SELFPAY ==
[2020-07-14] VITALS (26 sets, daily range): BP systolic 128–177; BP diastolic 71–95; PULSE 82–122; RESP 16–86; TEMP 35.7–37; O2SAT 18–98; BMI 28.3
--- NOTE | 2020-07-14 | ECHO_ITS ---
Patient Info Name: Mary Alice Hall Age: 59 years : 1960 Gender: Female Ht: 68 in Wt: 185 lbs BSA: 2.03 m2 HR: 95 bpm BP: 139 / 81 mmHg Heart Rhythm: Sinus Rhythm Technical Quality: Good Exam Date: 07/14/2020 12:07 PM Exam Location: [facility] Patient Status: Inpatient Admit Date: 07/14/2020 Staff Ordering Physician: Paco Guillen MD Coat Padder: Ambrose Marie RDCS Attending Provider: Papa Gray MD Exam Type: CA echo doppler color flow Study Info Indications J96.90 - Respiratory failure, unspecified, unspecified whether with hypoxia or hypercapnia Complete two-dimensional, color flow and Doppler transthoracic echocardiogram is performed. History/Risk Factors Respiratory failure; CHF, CAD, HFpEF, HTN, SOB. Summary 1. Complete two-dimensional, color flow and Doppler transthoracic echocardiogram is performed. 2. Technically difficult study with limited views. Regional wall motion assessment limited due to poor endomyocardial border definition in several views. 3. Left ventricular systolic function is normal, estimated at 60-65%. 4. There is mildly increased left ventricular wall thickness. 5. There is trace tricuspid valve regurgitation. 6. Moderate pulmonary hypertension, estimated pulmonary arterial systolic pressure is 47 mmHg. 7. There is trace mitral valve regurgitation. 8. There is no aortic valve stenosis. 9. Normal inferior vena cava with >50% collapse upon inspiration consistent with normal right atrial pressure, 5 mmHg. Left Ventricle Technically difficult study with limited views. Regional wall motion assessment limited due to poor endomyocardial border definition in several views. Left ventricular chamber dimension is normal. Left ventricular systolic function is normal, estimated at 60-65%. There is mildly increased left ventricular wall thickness. The left ventricular diastolic function is grade I diastolic dysfunction. Right Ventricle Right ventricular chamber dimension is normal. Right ventricular systolic function is normal. Left Atria Left atrial chamber dimension is normal. Right Atria Right atrial chamber dimension is normal. Aortic Valve The aortic valve is not well visualized. There is no aortic valve stenosis. There is no aortic valve regurgitation. Pulmonic Valve The pulmonic valve is not well visualized. Mitral Valve The mitral valve has normal leaflets. There is trace mitral valve regurgitation. The mitral valve annulus is mildly calcified. Tricuspid Valve The tricuspid valve leaflets are normal. There is trace tricuspid valve regurgitation. Moderate pulmonary hypertension, estimated pulmonary arterial systolic pressure is 47 mmHg. Pericardium/Pleural The pericardium appears normal. There is no pericardial effusion. Inferior Vena Cava Normal inferior vena cava with >50% collapse upon inspiration consistent with normal right atrial pressure, 5 mmHg. Aorta The aortic root size at the sinus of Valsalva is normal. There is mild aortic atherosclerosis. Left Ventricular Outflow Tract Name Value Normal LVOT 2D LVOT Diameter 1.9 cm LVOT Doppler
--- NOTE | ~2020-07-14 | XR_ITS ---
EXAMINATION: XR chest 1V portable EXAM DATE: 07/14/2020 06:32 INDICATION: Shortness of breath. Cough. TECHNIQUE: Portable AP frontal chest x-ray was obtained. Comparison is made to prior examination from 05/20/2020. FINDINGS: Moderate hyperinflation. No confluent consolidation, pneumothorax or pleural effusion suspe cted. Cardiomediastinal silhouette is normal. There are mild bony degenerative changes. IMPRESSION: 1. Hyperinflation. Reviewed, dictated and finalized at location A. POLISHER IMPRESSION: 1. Hyperinflation.
--- NOTE | 2020-07-14 05:14 | ECG_ITS ---
Measurements Intervals [place] Rate: 99 P: 97 FL: 153 QRS: 63 QRSD: 96 T: 64 QT: 342 QTc: 440 Interpretive Statements SINUS RHYTHM ATRIAL PREMATURE COMPLEXES INCOMPLETE RIGHT BUNDLE BRANCH BLOCK BASELINE WANDER- V1, V6 BORDERLINE ECG Electronically Signed On 07-14-2020 17:30:25 [employer] by Jovan Quintanilla D.O.
--- NOTE | 2020-07-14 05:19 | ED.SOB ---
HPI - SOB/Dyspnea General Chief Complaint: Shortness of Breath/Dyspnea Stated Complaint: sob Source: patient Mode of arrival: EMS Limitations: no limitations History of Present Illness HPI Narrative: This patient is a 59 year old female with history of COPD, chronic respiratory failure on 3 NC, and CHF who presents for evaluation of sob and feeling sick. She reports she has felt ill for 3 days like she has the flu. She reports body aches, subjective fever, productive cough, sob, chest pain with coughing and back pain with coughing. She is not aware of any sick contacts. EMS gave patient solumedrol 125 mg IV and a neb tx in route to hospital. Patient reports she has been out of her medications for 2 days. Related Data Home Medications Medication Instructions Recorded Confirmed Xarelto 20 mg PO DAILY 08/26/19 07/14/20 albuterol sulfate 2.5 mg INHALATION TID 08/26/19 07/14/20 gabapentin 300 mg PO TID 08/26/19 07/14/20 hydrocodone-acetaminophen 1 tablet PO TID PRN 08/26/19 07/14/20 phenytoin sodium extended 100 mg PO DAILY 08/26/19 07/14/20 venlafaxine [Effexor XR] 150 mg PO DAILY 08/26/19 07/14/20 lamotrigine 100 mg PO BID 04/19/20 07/14/20 alprazolam 0.5 mg PO TID PRN 07/14/20 07/14/20 furosemide 40 mg PO DAILY 07/14/20 07/14/20 lisinopril 20 mg PO DAILY 07/14/20 07/14/20 Allergies Allergy/AdvReac Type Severity Reaction Status Date / Time Penicillins Allergy Mild itching Verified 07/14/20 07:30 Review of Systems Review of Systems: All systems reviewed & are unremarkable except as noted in HPI and below Constitutional: Constitutional: Denies chills, Reports fatigue and Reports fever(s) ENT: Reports sore throat Cardiovascular: Cardiovascular: Reports chest pain Respiratory: Respiratory: Reports cough, Reports dyspnea and Reports wheezing Gastrointestinal: Gastrointestinal: Denies abdominal pain, Denies diarrhea, Reports nausea and Denies vomiting Musculoskeletal: Musculoskeletal: Reports myalgias Neurologic: Reports headache(s) [facility] Past Medical History Medical History (Updated 07/15/20 @ 01:45 by Elaine Longoria MD) Arthritis Asthma CAD (coronary artery disease) Chronic diastolic heart failure Chronic pain syndrome Chronic respiratory failure with hypoxia and hypercapnia Dementia patient denies Depression with anxiety Emphysema/COPD History of deep vein thrombosis on chronic anticoagulation with Xarelto HTN (hypertension) Hyperlipidemia Obstructive sleep apnea Peripheral neuropathy Pneumonia Seizures Tobacco dependence she is now using electronic cigarettes Surgical History Surgical History H/O section x2 Family History Family History Other Acute myocardial infarction Cerebrovascular accident Diabetes mellitus Hypertension Social History Social History (Updated 07/14/20 @ 09:36 by Paco Guillen MD) Social History: She is disabled. She is . She lives with her daughter and dtr boyfriend. Patient continues to smoke and is at 2cig/day. The patient is reportedly a recovering alcoholic. She also smokes marijuana as well. However she has stated that multiple times in the past and then a day or 2 into her hospital stay develops alcohol withdrawal. Primary care physician: Dr. 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 Gender identity (if verbalized by the patient): Female Spiritual care concerns: No Agree to blood produc
[2020-07-14 05:32] LABS: Alveolar/Arterial O2 Gradient 41.6 mmHg; Base Excess ABG 10.2 mEq/l (+/-2.0); Carboxyhemoglobin 5.9 % THb (0-2.0); Fractional Inspired Oxygen 32 %; HCO3 ABG 40.2 mEq/l (22.0-26.0); Methemoglobin ABG 0.1 %THb (0-1.5); Oxygen Content ABG 15.1 %vol (16.0-22.0); Oxyhemoglobin 89.8 % THb (90.0-100.0); PO2 ABG 82.5 mmHg (80.0-100.0); PO2 FiO2 Ratio Arterial Blood 2.58 %; Reduced Hemoglobin 4.2 %THb (0-5.0); Total Hemoglobin 11.9 g/dL (12.0-18.0)
[2020-07-14 05:34] LABS: pH ABG 7.273 (7.350-7.450)
[2020-07-14 05:35] LABS: Device NASAL CANNULA; Modified Allen's Test Unable to perform; PCO2 ABG 88.9 mmHg (35.0-45.0); Site Drawn RIGHT RADIAL
[2020-07-14 05:47] LABS: Basophils Absolute Auto 0.1 K/mm3 (0.0-0.1); Basophils Percent Auto 0.7 % (0.2-1.2); Eosinophils Absolute Auto 0.3 K/mm3 (0-0.3); Eosinophils Percent Auto 3.6 % (0-4.4); Hematocrit 36.2 % (37.0-47.0); Hemoglobin 11.2 g/dL (12.0-15.0); Immature Granulocyte Absolute 0.01 K/mm3 (0.00-0.031); Immature Granulocyte Percent A 0.1 % (0-0.5); Lymphocytes Absolute Auto 3.64 K/mm3 (0.9-3.2); Lymphocytes Percent Auto 38.6 % (18.3-44.2); Mean Corpuscular HGB Conc 30.9 g/dl (32-36); Mean Corpuscular Hemoglobin 30.2 pg (26-34); Mean Corpuscular Volume 97.6 fl (80-100); Monocytes Percent Auto 10.1 % (2.6-8.5); Neutrophils Absolute Auto 4.4 K/mm3 (1.3-6.7); Neutrophils Percent Auto 46.9 % (45.5-73.1); Platelet Count Result 203 k/mm3 (150-375); Red Blood Count 3.71 M/mm3 (4.2-5.4); Red Cell Distribution Width 11.9 % (11.5-14.5); White Blood Count 9.4 K/mm3 (4.5-10.0)
[2020-07-14 06:03] LABS: Lactic Acid Reflex 0.8 mmol/L (0.7-2.1)
[2020-07-14 06:06] LABS: Troponin I < 0.012 ng/mL (0.000-0.034)
[2020-07-14 06:08] LABS: Alanine Aminotransferase 38 U/L (4-35); Albumin Level 3.8 g/dL (3.5-5.1); Alkaline Phosphatase 99 U/L (38-126); Anion Gap 3.99999 mmol/L (8-16); Aspartate Amino Transferase 50 U/L (14-36); Bilirubin,Total 0.4 mg/dL (0.2-1.3); Blood Urea Nitrogen 14 mg/dL (7-17); Calcium 8.9 mg/dL (8.4-10.2); Carbon Dioxide > 40 mmol/L (22-30); Chloride 87 mmol/L (98-107); Estimated CRCL calculation 84 ml/min; Estimated Glomerular Filt Rate > 60; Glucose 127 mg/dL (65-105); Potassium 4.2 mmol/L (3.4-5.0); Sodium 131 mmol/L (137-145)
[2020-07-14 06:10] LABS: Phenytoin Dilantin < 3 ug/mL (10-20)
[2020-07-14 06:11] LABS: NT Pro B Type Natriuretic Pept 508 PG/ML (5-100)
[2020-07-14 07:42] LABS: Alveolar/Arterial O2 Gradient 97.4 mmHg; Base Excess ABG 8.1 mEq/l (+/-2.0); Carboxyhemoglobin 4.8 % THb (0-2.0); Fractional Inspired Oxygen 35 %; Methemoglobin ABG 0.1 %THb (0-1.5); Oxygen Content ABG 14.7 %vol (16.0-22.0); Oxygen Saturation ABG 88.4 % (95.0-100.0); Oxyhemoglobin 86.9 % THb (90.0-100.0); PO2 ABG 62.4 mmHg (80.0-100.0); PO2 FiO2 Ratio Arterial Blood 1.78 %; Reduced Hemoglobin 8.2 %THb (0-5.0); pH ABG 7.299 (7.350-7.450)
[2020-07-14 07:43] LABS: Device NON-INVASIVE VENT; Modified Allen's Test Pass; Non-Invasive Expiratory Pressure 8 CMH2O; Non-Invasive Inspiratory Pressure 16 CMH2O; Non-Invasive Vent Rate 14 /MIN; PCO2 ABG 77.2 mmHg (35.0-45.0); Site Drawn RIGHT RADIAL
[2020-07-14 07:51] LABS: Partial Thromboplastin Time 25.3 SECONDS (22.3-36.8); Prothrombin Time 13.3 Seconds (11.1-14.7)
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
[2020-07-14] MEDS: HYDROcodone/acetaminophen (*CRX) 5-325 MG TABLET 1 TAB PO (08:57)
[2020-07-14] MEDS: IPRATROPIUM BR 0.02% INH SOLN 0.5 MG/2.5 ML VIAL INHALATION ×3 (10:12→21:18)
[2020-07-14] MEDS: ALBUTEROL SULFATE NEB 2.5 MG/0.5 ML INH 5 MG INHALATION ×3 (10:13→21:18)
[2020-07-14 10:23] LABS: Alveolar/Arterial O2 Gradient 109.4 mmHg; Base Excess ABG 7.8 mEq/l (+/-2.0); Fractional Inspired Oxygen 35 %; HCO3 ABG 35.7 mEq/l (22.0-26.0); Oxygen Saturation ABG 88.9 % (95.0-100.0); Oxyhemoglobin 87.8 % THb (90.0-100.0); PO2 ABG 60.9 mmHg (80.0-100.0); PO2 FiO2 Ratio Arterial Blood 1.74 %; Total Hemoglobin 12.1 g/dL (12.0-18.0); pH ABG 7.337 (7.350-7.450)
[2020-07-14 10:24] LABS: Device NON-INVASIVE VENT; Modified Allen's Test Pass; Non-Invasive Expiratory Pressure 8 CMH2O; Non-Invasive Inspiratory Pressure 16 CMH2O; Non-Invasive Vent Rate 14 /MIN; PCO2 ABG 68.2 mmHg (35.0-45.0); Site Drawn RIGHT RADIAL
[2020-07-14 11:03] LABS: Add Urine Microscopic? NO; Appearance Urine Clear (Clear); Bilirubin Urine Negative (Negative); Blood Urine Negative (Negative); Color Urine Straw (Yellow); Glucose Urine UA Negative (Negative); Ketones Urine Negative (Negative); Leukocyte Esterase Ur Negative LEU/UL (Negative); Nitrate Urine Negative (Negative); Protein Urine Negative (Negative); Specific Grav Ur 1.008 (1.001-1.035); Urobilinogen Urine Negative mg/dL (<2.0)
[2020-07-14] MEDS: methylPREDNISolone SOD SUCC 125 MG VIAL 60 MG IV PUSH ×3 (14:05→23:04)
--- NOTE | 2020-07-14 16:35 | PC.NURSE ---
This patient, Mary Alice Hall, was admitted to IMU Room 210-01. Patient/family oriented to hospital policies and general routines including ID bracelet, bed and alarms, visiting hours, pain management, procedures, bathroom and other care routines, personal items, smoking policy, room service/diet, and visiting hours. Information on how to activate the Rapid Response Team has been discussed. Patient/Family are encouraged to report perceived risks to care and to ask questions if they do not understand what they are told or what they should do.
[2020-07-14] MEDS: HYDROcodone/acetaminophen (*CRX) 7.5-325 MG TABLET 1 TAB PO ×2 (17:37→23:04)
[2020-07-14] MEDS: ALPRAZolam (*CRX) 0.5 MG TABLET PO ×2 (17:37→23:04)
[2020-07-14] MEDS: RIVAROXABAN 20 MG TABLET PO (18:10)
[2020-07-14 19:47] LABS: SARS-CoV-2 RNA PCR Negative
[2020-07-14] MEDS: GABAPENTIN 300 MG CAPSULE PO (22:31)
[2020-07-14] MEDS: lamoTRIgine 100 MG TABLET PO (22:31)
[2020-07-15] VITALS (23 sets, daily range): BP systolic 107–179; BP diastolic 65–106; PULSE 87–119; RESP 14–26; TEMP 36.1–36.6; O2SAT 90–99
[2020-07-15] MEDS: ALBUTEROL SULFATE NEB 2.5 MG/0.5 ML INH 5 MG INHALATION ×4 (03:21→20:24)
[2020-07-15] MEDS: IPRATROPIUM BR 0.02% INH SOLN 0.5 MG/2.5 ML VIAL INHALATION ×4 (03:22→20:24)
[2020-07-15 04:59] LABS: Basophils Percent Auto 0.1 % (0.2-1.2); Hematocrit 34.1 % (37.0-47.0); Immature Granulocyte Absolute 0.06 K/mm3 (0.00-0.031); Immature Granulocyte Percent A 0.8 % (0-0.5); Lymphocytes Absolute Auto 1.09 K/mm3 (0.9-3.2); Lymphocytes Percent Auto 14.2 % (18.3-44.2); Mean Corpuscular HGB Conc 32.3 g/dl (32-36); Mean Corpuscular Hemoglobin 30.4 pg (26-34); Mean Corpuscular Volume 94.2 fl (80-100); Mean Platelet Volume 10.7 fl (7.4-10.4); Monocytes Absolute Auto 0.4 K/mm3 (0.1-0.6); Monocytes Percent Auto 5.1 % (2.6-8.5); Neutrophils Absolute Auto 6.1 K/mm3 (1.3-6.7); Neutrophils Percent Auto 79.8 % (45.5-73.1); Platelet Count Result 227 k/mm3 (150-375); Red Blood Count 3.62 M/mm3 (4.2-5.4); Red Cell Distribution Width 11.7 % (11.5-14.5); White Blood Count 7.7 K/mm3 (4.5-10.0)
[2020-07-15 05:34] LABS: Alanine Aminotransferase 30 U/L (4-35); Alkaline Phosphatase 102 U/L (38-126); Anion Gap 5.99999 mmol/L (8-16); Aspartate Amino Transferase 29 U/L (14-36); Bilirubin,Total 0.2 mg/dL (0.2-1.3); Blood Urea Nitrogen 16 mg/dL (7-17); Calcium 9.5 mg/dL (8.4-10.2); Carbon Dioxide > 40 mmol/L (22-30); Chloride 89 mmol/L (98-107); Estimated CRCL calculation 97 ml/min; Estimated Glomerular Filt Rate > 60; Glucose 158 mg/dL (65-105); Potassium 4.2 mmol/L (3.4-5.0); Sodium 135 mmol/L (137-145)
[2020-07-15] MEDS: GABAPENTIN 300 MG CAPSULE PO ×3 (05:54→21:13)
[2020-07-15] MEDS: methylPREDNISolone SOD SUCC 125 MG VIAL 60 MG IV PUSH ×4 (05:54→23:58)
[2020-07-15] MEDS: PHENYTOIN SODIUM 100 MG CAP PO (09:17)
[2020-07-15] MEDS: VENLAFAXINE HCL XR 75 MG CAP.ER.24H 150 MG PO (09:17)
[2020-07-15] MEDS: FUROSEMIDE 40 MG TABLET PO (09:17)
[2020-07-15] MEDS: lisinopriL 20 MG TABLET PO (09:18)
[2020-07-15] MEDS: lamoTRIgine 100 MG TABLET PO ×2 (09:18→21:12)
[2020-07-15] MEDS: HYDROcodone/acetaminophen (*CRX) 7.5-325 MG TABLET 1 TAB PO ×3 (09:22→21:13)
[2020-07-15] MEDS: ALPRAZolam (*CRX) 0.5 MG TABLET PO ×3 (09:23→21:12)
[2020-07-15] MEDS: RIVAROXABAN 20 MG TABLET PO (17:29)
--- NOTE | 2020-07-15 17:47 | PM.IMPN ---
Progress Note: A&P Assessment and Plan (1) Acute and chronic respiratory failure with hypercapnia: Code(s): J96.22 - Acute and chronic respiratory failure with hypercapnia Status: Acute Assessment and Plan: Patient with chronic hypoxia on 3L NC. She has developed acute respiratory failure from COPD exacerbation. COVID negative. She continues to smoke. Repeat ABG improved. Continue BiPAP at night and with naps. Continue treatment for COPD. (2) Acute exacerbation of chronic obstructive pulmonary disease (COPD): Code(s): J44.1 - Chronic obstructive pulmonary disease with (acute) exacerbation Status: Acute Assessment and Plan: Patient with respiratory failure, productive cough and exam findings consistent with COPD exacerbation. Improved. Continue IV steroids, abx and nebs. (3) Dementia: Code(s): F03.90 - Unspecified dementia without behavioral disturbance Status: Chronic Assessment and Plan: Patietn denies that she has demnetia. Have spoken with family in the past and they state patient does have some underlying confusion. She is not on medications for this. (4) HTN (hypertension): Code(s): I10 - Essential (primary) hypertension Status: Chronic Assessment and Plan: Patient's blood pressure was reviewed on 07/15 Blood pressure elevated at times. Will continue current medications with Lisinopril. Monitor for now. (5) Seizure disorder: Code(s): G40.909 - Epilepsy, unspecified, not intractable, without status epilepticus Status: Acute Assessment and Plan: Patient has been out of her Dilantin. No hx of seizures. We resumed Dilantin. (6) Chronic anticoagulation: Code(s): Z79.01 - senior care (current) use of anticoagulants Status: Acute Assessment and Plan: Patietn with hx of DVT. Continue Xarerlto. (7) Tobacco dependence: Code(s): F17.200 - Nicotine dependence, unspecified, uncomplicated Status: Acute Assessment and Plan: Educated about the benefits of smoking cessation (8) Abdominal pain: Code(s): R10.9 - Unspecified abdominal pain Status: Acute Assessment and Plan: UA noted. No retention. No culture required. (9) Chronic diastolic heart failure: Code(s): I50.32 - Chronic diastolic (congestive) heart failure Status: Acute Assessment and Plan: No evidence of fluid overload. BNP 500. Echo showing EF 60% wiht grade I diastolic dysfunction. Continue lasix Subjective Date/time seen: 07/15/20 17:47 Interval history: Date of service; 07/15 59yo female with COPD and chronic respiratory failure (3L) here for SOB and found to have acute respiratory failure. She wore the mask last night. She wears the mask about 3 noc/week at home. Nausea better. No CP. Eating okay Exam Narrative: Exam Narrative: AF 97.3 129/106 112 20 95% 3L Gen - NARD Chest - inspiratory and expiratory wheezes, no conversational dyspnea CV - irregularly irregular, Tele showing NSR with PVCs Abd - soft, NT/ND, +BS Ext - no pedal edema Psych - normal mood and affect. Patient is pleasant and cooperative. Skin - warm and dry. Objective Data Vital Signs Vital Signs: Vital Signs - 24 hr 07/14/20 18:00 07/14/20 18:17 07/14/20 20:00 Temperature 97.9 F Pulse Rate 122 H 104 H Respiratory Rate 20 Blood Pressure 177/77 H 165/77 H Pulse Oximetry 97 07/14/20 21:18 07/14/20 21:33 07/14/20 22:00 Temperature Pulse Rate 96 100 119 H Respiratory Rate 20 20 Blood Pressure Pulse Oximetry 91 07/15/20 00:00 07/15/20 02:00 07/15/20 03:22 Temperature 97.9 F Pulse Rate 110 H 106 H 92 Respiratory Rate 20 20 Blood Pressure 155/70 H Pulse Oximetry 93 07/15/20 03:31 07/15/20 04:00 07/15/20 06:00 Temperature 97.9 F Pulse Rate 87 98 91 Respiratory Rate 20 20 Blood Pressure 107/76 Pulse Oximetry
[2020-07-15] MEDS: SALINE 0.65% NAS SOLN 44 ML BTL 1 SPRAY NASAL (21:14)
--- NOTE | 2020-07-15 21:43 | PC.NURSE ---
This patient, Mary Alice Hall, was transferred to [ [id number]] on 07/15/20 at 2143. Personal belongings sent with patient. Report given to [ Rosio jay]. Appropriate documentation sent with patient.
--- NOTE | 2020-07-15 21:55 | PC.NURSE ---
This patient, Mary Alice Hall, was received from [ ] on 07/15/20 at 2206. Patient/family oriented to unit policies and routines
[2020-07-16] MEDS: SALINE 0.65% NAS SOLN 44 ML BTL 1 SPRAY NASAL (00:02)
--- NOTE | 2020-07-16 03:19 | PCRCNOTE ---
Window of time for administration has passed. See next scheduled administration.
[2020-07-16 04:51] VITALS: BP 132/69; PULSE 85; RESP 16; TEMP 36.4; O2SAT 92
[2020-07-16] MEDS: methylPREDNISolone SOD SUCC 125 MG VIAL 60 MG IV PUSH (05:45)
[2020-07-16] MEDS: GABAPENTIN 300 MG CAPSULE PO (05:46)
[2020-07-16 08:15] VITALS: PULSE 103; RESP 18; O2SAT 91
[2020-07-16] MEDS: IPRATROPIUM BR 0.02% INH SOLN 0.5 MG/2.5 ML VIAL INHALATION (08:15)
[2020-07-16] MEDS: ALBUTEROL SULFATE NEB 2.5 MG/0.5 ML INH 5 MG INHALATION (08:15)
[2020-07-16 08:25] VITALS: PULSE 106; RESP 18
--- NOTE | 2020-07-16 09:06 | PM.DS ---
DS: Admitting Diagnosis Admitting Diagnosis Admitting Diagnosis: Acute on chronic repsiratory failure with hypercap DS: Discharge Diagnosis Discharge Diagnosis (1) Acute and chronic respiratory failure with hypercapnia: Code(s): J96.22 - Acute and chronic respiratory failure with hypercapnia Status: Acute Assessment and Plan: Patient with chronic hypoxia on 3L NC. She has developed acute respiratory failure from COPD exacerbation. She continues to smoke. ABG on admission was 7.27/89/82 on 3L. BiPAP started. Repeat ABG better at 7.34/68/61. COVID test negative. She was started on treatment for her COPD. She admits to only wearing her PAP unit 3x/week on average. BiPAP weaned off and she was weaned to baseline 3L. (2) Acute exacerbation of chronic obstructive pulmonary disease (COPD): Code(s): J44.1 - Chronic obstructive pulmonary disease with (acute) exacerbation Status: Acute Assessment and Plan: Patient with respiratory failure, productive cough and exam findings consistent with COPD exacerbation. Improved with appropriate treatment with IV steroids, abx and nebs. Home with steroid taper. Encouraged smoking cessationa nd compliance with PAP therapy. (3) Dementia: Code(s): F03.90 - Unspecified dementia without behavioral disturbance Status: Chronic Assessment and Plan: Patietn denies that she has dementia. Have spoken with family in the past and they state patient does have some underlying confusion. She is not on medications for this. (4) HTN (hypertension): Code(s): I10 - Essential (primary) hypertension Status: Chronic Assessment and Plan: Patient's blood pressure was monitored closely. Blood pressure elevated at times but better now. We continued her Lisinopril. (5) Seizure disorder: Code(s): G40.909 - Epilepsy, unspecified, not intractable, without status epilepticus Status: Acute Assessment and Plan: Patient has been out of her Dilantin. No hx of seizures. We resumed Dilantin here. 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 We continued her Xarerlto. (7) Tobacco dependence: Code(s): F17.200 - Nicotine dependence, unspecified, uncomplicated Status: Acute Assessment and Plan: Educated about the benefits of smoking cessation multiple times. Also educated about not smoking with O2 in place. (8) Abdominal pain: Code(s): R10.9 - Unspecified abdominal pain Status: Acute Assessment and Plan: Lower abdominal pain but UA clear and no evidence of urine retention. (9) Chronic diastolic heart failure: Code(s): I50.32 - Chronic diastolic (congestive) heart failure Status: Acute Assessment and Plan: No evidence of fluid overload. BNP 500. Echo showing EF 60% with grade I diastolic dysfunction. We continued her lasix. DS: Summary Hospital Course Reason for hospitalization: 59yo female with chronic resp failure here for acute resp failure from COPD exacerbation. Hospital Course: As above Status at Discharge Cognitive/behavioral status at discharge: PATIENT IS STABLE FOR DISCHARGE Functional status at discharge: independent ambulation Time Spent with Patient Time attestation: Total time spent providing and/or coordinating discharge services: 35 minutes Time spent: Greater than 30 minutes Exam Narrative: Exam Narrative: Walking to the BR. SOB better. Slight wheezing now. Eating normally AF 97.5 132/69 85 16 92% 3L Gen - NARD Chest - few expiratory wheezes mostly anteriorly,nml RR CV - RRR S1/S2 Abd - soft, NT/ND, +BS Ext - no pedal edema Psych - normal mood and affect. Skin - warm and dry. DS: Data Data Completed and Pending Labs on day of discharge: Preliminary micro results at discha
[2020-07-16] MEDS: ALPRAZolam (*CRX) 0.5 MG TABLET PO (09:07)
[2020-07-16] MEDS: HYDROcodone/acetaminophen (*CRX) 7.5-325 MG TABLET 1 TAB PO (09:07)
[2020-07-16] MEDS: FUROSEMIDE 40 MG TABLET PO (09:09)
[2020-07-16] MEDS: VENLAFAXINE HCL XR 75 MG CAP.ER.24H 150 MG PO (09:09)
[2020-07-16] MEDS: PHENYTOIN SODIUM 100 MG CAP PO (09:09)
[2020-07-16] MEDS: lamoTRIgine 100 MG TABLET PO (09:10)
[2020-07-16] MEDS: lisinopriL 20 MG TABLET PO (09:10)
[2020-07-16 09:15] VITALS: O2SAT 92
[2020-07-16] MEDS: AZITHROMYCIN 250 MG TABLET PO (11:11)
--- NOTE | 2020-07-20 14:30 | PC.NURSE ---
Blood cx are negative. sukhdeep
== END 2020-07-16 12:15 | disposition home or self-care (01) | DRG 190 ==
LOC: ANHED 06:57 → ANHIMU 11:59 → ANH3MED 07-15 22:43 → ANHIMU 07-17 14:57
PROVIDERS: Admitting Provider Family Medicine; Emergency Provider General Practice; PCP Internal Medicine; Visit Provider Internal Medicine
DX: J44.1 Chronic obstructive pulmonary disease with (acute) exacerbation (principal); J96.22 Acute and chronic respiratory failure with hypercapnia; J96.11 Chronic respiratory failure with hypoxia; I50.32 Chronic diastolic (congestive) heart failure; I11.0 Hypertensive heart disease with heart failure; Z20.828 Contact with and (suspected) exposure to other viral communicable diseases; F03.90 Unspecified dementia, unspecified severity, without behavioral disturbance, psychotic disturbance, mood disturbance, and anxiety; Z99.81 Dependence on supplemental oxygen; F17.210 Nicotine dependence, cigarettes, uncomplicated; F17.290 Nicotine dependence, other tobacco product, uncomplicated; G47.33 Obstructive sleep apnea (adult) (pediatric); I25.10 Atherosclerotic heart disease of native coronary artery without angina pectoris; F41.8 Other specified anxiety disorders; G62.9 Polyneuropathy, unspecified; E78.5 Hyperlipidemia, unspecified; G40.909 Epilepsy, unspecified, not intractable, without status epilepticus; Z86.718 Personal history of other venous thrombosis and embolism; Z79.01 Long term (current) use of anticoagulants; Z79.899 Other long term (current) drug therapy; Z88.0 Allergy status to penicillin
CPT/HCPCS: 36415; 36600; 71045; 80053; 80185; 81003; 82375; 82805; 83050; 83605; 83880; 84484; 85025; 85610; 85730; 87040; 87635; 87804; 93005; 93306; 94002; 94640; 99291; A9270; C9803; J0456; J2930; J7060; U0003

== ENCOUNTER 2020-07-21 08:49 | Inpatient (IN) | payer MEDICARE, MEDICAID, SELFPAY ==
[2020-07-21] VITALS (21 sets, daily range): BP systolic 103–167; BP diastolic 58–93; PULSE 61–115; RESP 16–26; TEMP 35.8–37.1; O2SAT 90–100
--- NOTE | ~2020-07-21 | XR_ITS ---
EXAMINATION: XR chest 1V portable DATE: 07/21/2020 09:15 INDICATION: Shortness of breath. TECHNIQUE: A single frontal view of the chest was obtained. COMPARISON: Chest single view 07/14/2020, chest CT 10/18/2012 FINDINGS: The chest demonstrates clear lungs without pneumonia, pleural effusion, or pneumothorax. Th e heart size is normal. There is a prominent left paracardial fat pad. IMPRESSION: 1. No acute cardiopulmonary disease. Reviewed, dictated and finalized at location A. KILN WORKER HELPER
--- NOTE | 2020-07-21 08:54 | ECG_ITS ---
Measurements Intervals [place] Rate: 103 P: 75 DC: 152 QRS: 55 QRSD: 93 T: 82 QT: 329 QTc: 432 Interpretive Statements SINUS TACHYCARDIA ATRIAL PREMATURE COMPLEX INCOMPLETE RIGHT BUNDLE BRANCH BLOCK NONSPECIFIC T-WAVE ABNORMALITY- HIGH LAT LEADS BASELINE ARTIFACT- V6 ABNORMAL ECG Electronically Signed On 07-21-2020 9:49:16 [employer] by Jovan Quintanilla D.O.
--- NOTE | 2020-07-21 08:57 | ED.GENADULT ---
HPI - General Adult General Chief complaint: Shortness of Breath/Dyspnea Stated complaint: SOB, COPD Exacerbation Time Seen by Provider: 07/21/20 08:53 Source: patient History of Present Illness HPI narrative: Patient is a 59 y/o female complaining of severe SOB since yesterday. She states that nebulizer helps with her symptoms. She also has chest pain, and cough. She has thought she had a fever, but did not check her temperature. She has history of COPD. She still smokes. Related Data Home Medications Medication Instructions Recorded Confirmed Xarelto 20 mg PO DAILY 08/26/19 07/14/20 albuterol sulfate 2.5 mg INHALATION TID 08/26/19 07/14/20 venlafaxine [Effexor XR] 150 mg PO DAILY 08/26/19 07/14/20 lamotrigine 100 mg PO BID 04/19/20 07/14/20 furosemide 40 mg PO DAILY 07/14/20 07/14/20 lisinopril 20 mg PO DAILY 07/14/20 07/14/20 Allergies Allergy/AdvReac Type Severity Reaction Status Date / Time Penicillins Allergy Mild itching Verified 07/21/20 09:04 Review of Systems Constitutional: Constitutional: Denies chills, Denies fever(s), Denies headache(s) and Denies weakness Eyes: Eyes: Denies blurry vision ENT: Denies headache(s) and Denies neck pain Cardiovascular: Cardiovascular: Reports chest pain and Reports dyspnea Respiratory: Respiratory: Reports cough and Reports dyspnea Gastrointestinal: Gastrointestinal: Denies abdominal pain, Denies diarrhea, Denies nausea and Denies vomiting Genitourinary: Genitourinary: Denies hematuria and Denies dysuria Musculoskeletal: Musculoskeletal: Denies back pain and Denies neck pain Neurologic: Denies headache(s) and Denies weakness PMFSH Past Medical History Medical History Arthritis Asthma CAD (coronary artery disease) Chronic diastolic heart failure Chronic pain syndrome Chronic respiratory failure with hypoxia and hypercapnia Dementia patient denies Depression with anxiety Emphysema/COPD History of deep vein thrombosis on chronic anticoagulation with Xarelto HTN (hypertension) Hyperlipidemia Obstructive sleep apnea Peripheral neuropathy Pneumonia Seizures Tobacco dependence she is now using electronic cigarettes Surgical History Surgical History H/O section x2 Family History Family History Other Acute myocardial infarction Cerebrovascular accident Diabetes mellitus Hypertension Social History Social History Social History: She is disabled. She is . She lives with her daughter and dtr boyfriend. Patient continues to smoke and is at 2cig/day. The patient is reportedly a recovering alcoholic. She also smokes marijuana as well. However she has stated that multiple times in the past and then a day or 2 into her hospital stay develops alcohol withdrawal. Primary care physician: Dr. 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 Gender identity (if verbalized by the patient): Female Spiritual care concerns: No Agree to blood products: No Exam Const: General: no acute distress, well developed and in distress Orientation/consciousness: oriented to person, oriented to place and confusion HENMT: Head: normocephalic Ears: external ears normal General nose exam: Normal external nose present Eyes: General: appearance normal, both eyes and all related structures Conjunctivae: conjunctivae normal Neck: Nec
[2020-07-21 09:06] LABS: Basophils Absolute Auto 0.1 K/mm3 (0.0-0.1); Basophils Percent Auto 0.5 % (0.2-1.2); Eosinophils Absolute Auto 0.1 K/mm3 (0-0.3); Eosinophils Percent Auto 1.5 % (0-4.4); Hematocrit 35.9 % (37.0-47.0); Immature Granulocyte Absolute 0.03 K/mm3 (0.00-0.031); Immature Granulocyte Percent A 0.3 % (0-0.5); Lymphocytes Absolute Auto 1.36 K/mm3 (0.9-3.2); Lymphocytes Percent Auto 14.1 % (18.3-44.2); Mean Corpuscular HGB Conc 30.6 g/dl (32-36); Mean Corpuscular Hemoglobin 30.5 pg (26-34); Mean Corpuscular Volume 99.4 fl (80-100); Mean Platelet Volume 9.8 fl (7.4-10.4); Monocytes Absolute Auto 0.5 K/mm3 (0.1-0.6); Monocytes Percent Auto 5.6 % (2.6-8.5); Neutrophils Absolute Auto 7.5 K/mm3 (1.3-6.7); Platelet Count Result 300 k/mm3 (150-375); Red Blood Count 3.61 M/mm3 (4.2-5.4); Red Cell Distribution Width 11.9 % (11.5-14.5); White Blood Count 9.7 K/mm3 (4.5-10.0)
[2020-07-21] MEDS: methylPREDNISolone SOD SUCC 125 MG VIAL IV PUSH (09:09)
[2020-07-21 09:10] LABS: Alveolar/Arterial O2 Gradient 37.8 mmHg; Base Excess ABG 6.7 mEq/l (+/-2.0); Fractional Inspired Oxygen 32 %; HCO3 ABG 36.5 mEq/l (22.0-26.0); Oxygen Content ABG 15.7 %vol (16.0-22.0); Oxyhemoglobin 95.1 % THb (90.0-100.0); PO2 FiO2 Ratio Arterial Blood 2.81 %; Total Hemoglobin 11.7 g/dL (12.0-18.0); pH ABG 7.247 (7.350-7.450)
[2020-07-21 09:11] LABS: Device NASAL CANNULA; Modified Allen's Test Pass; PCO2 ABG 85.8 mmHg (35.0-45.0); Site Drawn RIGHT RADIAL
[2020-07-21 09:26] LABS: Alanine Aminotransferase 35 U/L (4-35); Alkaline Phosphatase 93 U/L (38-126); Anion Gap 6.99999 mmol/L (8-16); Aspartate Amino Transferase 39 U/L (14-36); Bilirubin,Total 0.4 mg/dL (0.2-1.3); Blood Urea Nitrogen 16 mg/dL (7-17); Calcium 9.1 mg/dL (8.4-10.2); Carbon Dioxide > 40 mmol/L (22-30); Chloride 87 mmol/L (98-107); Estimated CRCL calculation 104 ml/min; Estimated Glomerular Filt Rate > 60; Glucose 182 mg/dL (65-105); Potassium 4.5 mmol/L (3.4-5.0); Sodium 134 mmol/L (137-145)
[2020-07-21 09:31] LABS: NT Pro B Type Natriuretic Pept 1570 PG/ML (5-100); Troponin I 0.043 ng/mL (0.000-0.034)
[2020-07-21 12:19] LABS: Alveolar/Arterial O2 Gradient 73.7 mmHg; Base Excess ABG 13.4 mEq/l (+/-2.0); Carboxyhemoglobin 0.5 % THb (0-2.0); Fractional Inspired Oxygen 30 %; HCO3 ABG 41.8 mEq/l (22.0-26.0); Oxygen Content ABG 15.5 %vol (16.0-22.0); Oxyhemoglobin 89.9 % THb (90.0-100.0); PO2 ABG 53.4 mmHg (80.0-100.0); PO2 FiO2 Ratio Arterial Blood 1.78 %; Reduced Hemoglobin 9.6 %THb (0-5.0); Total Hemoglobin 12.3 g/dL (12.0-18.0)
[2020-07-21 12:22] LABS: Device NON-INVASIVE VENT; Modified Allen's Test Pass; Oxygen Saturation ABG 85.2 % (95.0-100.0); PCO2 ABG 73.9 mmHg (35.0-45.0); Site Drawn RIGHT RADIAL
[2020-07-21 12:24] LABS: Non-Invasive Expiratory Pressure 6 CMH2O; Non-Invasive Inspiratory Pressure 12 CMH2O; Non-Invasive Vent Rate 4 /MIN
--- NOTE | 2020-07-21 13:17 | PM.IMHP ---
H&P: HPI History of Present Illness Date/Time: 07/21/20 1215 Chief complaint: Shortness of breath Narrative: Date of Admission 07/21/20 The supervising physician for this history and physical is Dr Lillie Wyatt. Ms. Hall is a 59yo F with history of COPD, chronic respiratory failure on 3 L nasal cannula, CHF who presented to the ED for evaluation of shortness of breath. She is a bit confused and is a fair historian, thus much of this history is obtained from the EMR and via phone call with the patient's daughter, Ebony. The patient cannot tell me why she was brought to the hospital. Patient was recently admitted to our facility 07/14/20 - 07/16/20 for treatment of acute on chronic respiratory failure, COPD exacerbation. bEony describes the patient was feeling better for a few days following her hospital discharge but overall her condition has been declining recently. She has noticed the patient to become more confused lately and not answering questions appropriately. She feels the patient's breathing has become more labored in the last few days. The patient herself complains only of lower back pain at present and denies chest pain, shortness of breath, palpitations, nausea, or vomiting. She describes she has been coughing up green phlegm. She describes that she does have a nebulizer at home but tells me she did not use it prior to arrival. Ebony describes she has a Trilogy at home, but only uses it a few nights a week. Includes a chest x-ray that demonstrates no acute cardiopulmonary disease; blood gas pH 7.247, pCO2 85.8, PO2 90 on 3 L nasal cannula. Continuous BiPAP was initiated and repeat ABG has improved. She is admitted to the hospitalist service for further care acute on chronic respiratory failure with hypoxia and hypercarbia secondary to suspected COPD exacerbation and noncompliance of PAP therapy. Review of Systems Review of Systems: Narrative: Twelve systems were reviewed with pertinent positives and negatives as per HPI. Except as documented, all other systems were reviewed and are negative. [facility] Past Medical History Medical History Arthritis Asthma CAD (coronary artery disease) Chronic diastolic heart failure Chronic pain syndrome Chronic respiratory failure with hypoxia and hypercapnia Dementia patient denies Depression with anxiety Emphysema/COPD History of deep vein thrombosis on chronic anticoagulation with Xarelto HTN (hypertension) Hyperlipidemia Obstructive sleep apnea Peripheral neuropathy Pneumonia Seizures Tobacco dependence Surgical History Surgical History H/O section x2 Family History Family History Other Acute myocardial infarction Cerebrovascular accident Diabetes mellitus Hypertension Social History Social History (Updated 07/21/20 @ 16:32 by Maria Del Rosario Somers PA-C) Social History: She is disabled. She is . She lives with her daughter and daughter's boyfriend. Patient continues to smoke and is at 3 cigarettes per day. The patient is reportedly a recovering alcoholic. She also smokes marijuana as well; she reports around once weekly. Primary care physician: Dr. 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 Gender identity (if verbalized by the patient): Female Spiritual care concerns: No A
[2020-07-21] MEDS: FUROSEMIDE INJ 40 MG/4 ML VIAL IV PUSH (13:44)
[2020-07-21] MEDS: methylPREDNISolone SOD SUCC 125 MG VIAL 60 MG IV PUSH ×2 (13:45→17:33)
[2020-07-21] MEDS: LORazepam INJ (*CRX) 2 MG/ML VIAL 0.5 MG IV PUSH ×2 (13:45→21:36)
[2020-07-21] MEDS: HYDROcodone/acetaminophen (*CRX) 7.5-325 MG TABLET 1 TAB PO ×2 (15:56→21:35)
[2020-07-21 16:48] LABS: Ammonia < 9 umol/L (9-30)
[2020-07-21 16:50] LABS: Phenytoin Dilantin 5 ug/mL (10-20)
[2020-07-21 16:57] LABS: Alveolar/Arterial O2 Gradient 103.2 mmHg; Base Excess ABG 16.2 mEq/l (+/-2.0); Carboxyhemoglobin 0.5 % THb (0-2.0); Fractional Inspired Oxygen 35 %; HCO3 ABG 44.2 mEq/l (22.0-26.0); Methemoglobin ABG 0.1 %THb (0-1.5); Oxygen Content ABG 16.3 %vol (16.0-22.0); Oxygen Saturation ABG 91.7 % (95.0-100.0); Oxyhemoglobin 92.1 % THb (90.0-100.0); PO2 ABG 63.8 mmHg (80.0-100.0); PO2 FiO2 Ratio Arterial Blood 1.82 %; Reduced Hemoglobin 7.3 %THb (0-5.0); Total Hemoglobin 12.6 g/dL (12.0-18.0); pH ABG 7.412 (7.350-7.450)
[2020-07-21 16:58] LABS: Device NON-INVASIVE VENT; Modified Allen's Test Pass; Non-Invasive Inspiratory Pressure 14 CMH2O; Non-Invasive Vent Rate 4 /MIN; Site Drawn LEFT RADIAL
[2020-07-21 16:59] LABS: Non-Invasive Expiratory Pressure 6 CMH2O
[2020-07-21 17:08] LABS: Troponin I 0.062 ng/mL (0.000-0.034)
[2020-07-21] MEDS: RIVAROXABAN 20 MG TABLET PO (17:34)
[2020-07-21] MEDS: lamoTRIgine 100 MG TABLET PO (17:34)
[2020-07-21 19:47] LABS: SARS-CoV-2 RNA PCR Negative
[2020-07-21] MEDS: GABAPENTIN 300 MG CAPSULE PO (20:18)
[2020-07-21] MEDS: ALBUTEROL SULFATE NEB 2.5 MG/0.5 ML INH INHALATION (21:01)
[2020-07-21] MEDS: IPRATROPIUM BR 0.02% INH SOLN 0.5 MG/2.5 ML VIAL INHALATION (21:01)
[2020-07-22] VITALS (16 sets, daily range): BP systolic 145–173; BP diastolic 57–92; PULSE 94–120; RESP 18–26; TEMP 36.2–36.8; O2SAT 86–97
[2020-07-22] MEDS: methylPREDNISolone SOD SUCC 125 MG VIAL 60 MG IV PUSH ×4 (00:37→18:25)
[2020-07-22] MEDS: ALBUTEROL SULFATE NEB 2.5 MG/0.5 ML INH INHALATION ×3 (02:13→14:51)
[2020-07-22] MEDS: IPRATROPIUM BR 0.02% INH SOLN 0.5 MG/2.5 ML VIAL INHALATION ×3 (02:13→14:51)
[2020-07-22] MEDS: HYDROcodone/acetaminophen (*CRX) 7.5-325 MG TABLET 1 TAB PO ×3 (06:08→18:25)
[2020-07-22] MEDS: GABAPENTIN 300 MG CAPSULE PO ×3 (06:09→21:23)
[2020-07-22 07:52] LABS: Basophils Percent Auto 0.2 % (0.2-1.2); Eosinophils Absolute Auto 0.1 K/mm3 (0-0.3); Eosinophils Percent Auto 1.1 % (0-4.4); Hematocrit 30.6 % (37.0-47.0); Hemoglobin 10.2 g/dL (12.0-15.0); Immature Granulocyte Absolute 0.03 K/mm3 (0.00-0.031); Immature Granulocyte Percent A 0.3 % (0-0.5); Lymphocytes Absolute Auto 3.22 K/mm3 (0.9-3.2); Lymphocytes Percent Auto 32.2 % (18.3-44.2); Mean Corpuscular HGB Conc 33.3 g/dl (32-36); Mean Corpuscular Hemoglobin 29.8 pg (26-34); Mean Corpuscular Volume 89.5 fl (80-100); Mean Platelet Volume 9.8 fl (7.4-10.4); Monocytes Absolute Auto 1.3 K/mm3 (0.1-0.6); Monocytes Percent Auto 12.8 % (2.6-8.5); Neutrophils Absolute Auto 5.3 K/mm3 (1.3-6.7); Neutrophils Percent Auto 53.4 % (45.5-73.1); Nucleated Red Blood Cells Perc 0.3 % (0.0-0.2); Platelet Count Result 302 k/mm3 (150-375); Red Blood Count 3.42 M/mm3 (4.2-5.4); Red Cell Distribution Width 11.1 % (11.5-14.5)
[2020-07-22 07:54] LABS: Potassium 3.4 mmol/L (3.4-5.0)
[2020-07-22 08:04] LABS: Alanine Aminotransferase 31 U/L (4-35); Albumin Level 3.6 g/dL (3.5-5.1); Alkaline Phosphatase 99 U/L (38-126); Anion Gap 8.99999 mmol/L (8-16); Aspartate Amino Transferase 29 U/L (14-36); Bilirubin,Total 0.5 mg/dL (0.2-1.3); Blood Urea Nitrogen 18 mg/dL (7-17); CRP 0.9 mg/dL (<1.0); Calcium 8.8 mg/dL (8.4-10.2); Carbon Dioxide > 40 mmol/L (22-30); Chloride 78 mmol/L (98-107); Estimated CRCL calculation 87 ml/min; Estimated Glomerular Filt Rate > 60; Glucose 105 mg/dL (65-105); Lactate Dehydrogenase 382 U/L (313-618); Magnesium 1.5 mg/dL (1.6-2.3); Sodium 127 mmol/L (137-145)
[2020-07-22 08:11] LABS: Glucose Point of Care 110 (65-105)
[2020-07-22] MEDS: FUROSEMIDE 40 MG TABLET PO (08:52)
[2020-07-22] MEDS: lamoTRIgine 100 MG TABLET PO ×2 (08:52→17:25)
[2020-07-22] MEDS: lisinopriL 20 MG TABLET PO (08:53)
[2020-07-22] MEDS: PHENYTOIN SODIUM 100 MG CAP PO (08:53)
[2020-07-22] MEDS: VENLAFAXINE HCL XR 75 MG CAP.ER.24H 150 MG PO (08:54)
[2020-07-22] MEDS: LORazepam INJ (*CRX) 2 MG/ML VIAL 0.5 MG IV PUSH ×3 (10:41→22:26)
[2020-07-22 12:29] LABS: Glucose Point of Care 206 (65-105)
--- NOTE | 2020-07-22 13:48 | PC.NURSE ---
This patient, Mary Alice Hall, was transferred to [facility] on 07/22/20 at 1326. Personal belongings sent with patient. Report given to Maureen HOBBS. Appropriate documentation sent with patient.
--- NOTE | 2020-07-22 13:49 | PC.NURSE ---
Transfer patient received per wheelchair. Report from ANJEL Mittal.
--- NOTE | 2020-07-22 17:24 | PM.IMPN ---
Progress Note: A&P Assessment and Plan (1) Acute on chronic respiratory failure with hypoxia and hypercapnia: Code(s): J96.21 - Acute and chronic respiratory failure with hypoxia; J96.22 - Acute and chronic respiratory failure with hypercapnia Status: Acute Assessment and Plan: Patient recently admitted one week ago for same. Suspect secondary to COPD exacerbation questionable compliance with PAP therapy, she has a Trilogy unit at home that she does not use every night. ABG on arrival with pH 7.247, pCO2 85.8, PO2 90 on her home requirement of 3 L O2 nasal cannula; continuous BiPAP initiated in ABGs a bit improved. Will trial off BiPAP for dinner and repeat ABG this evening. Continue therapy for COPD exacerbation with IV Solu-Medrol, nebulized bronchodilator therapy. (2) Acute exacerbation of chronic obstructive pulmonary disease: Code(s): J44.1 - Chronic obstructive pulmonary disease with (acute) exacerbation Status: Acute Assessment and Plan: See above. Continue IV Solu-Medrol, DuoNebs. (3) Chronic diastolic heart failure: Code(s): I50.32 - Chronic diastolic (congestive) heart failure Status: Chronic Assessment and Plan: Recent echocardiogram last week shows normal systolic function, EF 60-65%; moderate pulmonary hypertension; trace mitral and tricuspid regurgitation. Continue Lasix; monitor I&Os and daily weights. (4) Dementia: Qualifiers: Dementia type: unspecified type Dementia behavioral disturbance: without behavioral disturbance Qualified Code(s): F03.90 - Unspecified dementia without behavioral disturbance Code(s): F03.90 - Unspecified dementia without behavioral disturbance Status: Chronic Assessment and Plan: Patient's daughter confirms that she typically is disoriented. Patient uncooperative today. (5) Chronic anticoagulation: Code(s): Z79.01 - [facility] (current) use of anticoagulants Status: Chronic Assessment and Plan: Continue long-term anticoagulation with Xarelto, which she takes for history of DVT according to the EMR. (6) Chronic anemia: Code(s): D64.9 - Anemia, unspecified Status: Chronic Assessment and Plan: Chronic normocytic anemia is noted. No evidence of acute bleeding today. Monitor H&H. (7) Seizure disorder: Code(s): G40.909 - Epilepsy, unspecified, not intractable, without status epilepticus Status: Chronic Assessment and Plan: History of seizure disorder; continue her home phenytoin and the Lamictal. Check phenytoin level. (8) HTN (hypertension): Code(s): I10 - Essential (primary) hypertension Status: Chronic Assessment and Plan: BPs are slightly elevated, last 154/85. Resume her home regimen with lisinopril. Monitor BP and adjust treatment as needed. (9) Tobacco dependence: Code(s): F17.200 - Nicotine dependence, unspecified, uncomplicated Status: Chronic Assessment and Plan: Patient continues to smoke. Smoking cessation encouraged. (10) Chronic pain syndrome: Code(s): G89.4 - Chronic pain syndrome Status: Chronic Assessment and Plan: Continue pain regimen for treatment of low back pain. (11) Person under investigation for COVID-19: Code(s): Z20.828 - Contact with and (suspected) exposure to other viral communicable diseases Status: Acute Assessment and Plan: COVID testing pending. COVID test negative 07/14/20, chest XR without evidence o
[2020-07-22 17:25] LABS: Add Urine Microscopic? NO; Appearance Urine Clear (Clear); Bilirubin Urine Negative (Negative); Blood Urine Negative (Negative); Color Urine Colorless (Yellow); Glucose Urine UA Negative (Negative); Ketones Urine Negative (Negative); Leukocyte Esterase Ur Negative LEU/UL (Negative); Nitrate Urine Negative (Negative); Protein Urine Negative (Negative); Specific Grav Ur 1.006 (1.001-1.035); Urobilinogen Urine Negative mg/dL (<2.0)
[2020-07-22] MEDS: RIVAROXABAN 20 MG TABLET PO (17:30)
[2020-07-22 17:54] LABS: Barbiturate Screen Urine Negative (Negative); Benzodiazepines Screen Urine Negative (Negative)
[2020-07-22 17:57] LABS: Amphetamine Screen Urine Negative (Negative); Cannabinoid Screen Urine Negative (Negative); Cocaine Screen Urine Negative (Negative); Methadone Screen Urine Negative (Negative); Opiate Screen Urine Negative (Negative); Phencyclidine Screen Urine Negative (Negative)
[2020-07-23] VITALS: BP 151/75; PULSE 107; RESP 20; TEMP 36.2; O2SAT 95
[2020-07-23] MEDS: HYDROcodone/acetaminophen (*CRX) 7.5-325 MG TABLET 1 TAB PO ×2 (00:05→06:17)
[2020-07-23] MEDS: methylPREDNISolone SOD SUCC 125 MG VIAL 60 MG IV PUSH ×2 (00:05→06:16)
[2020-07-23 01:18] VITALS: PULSE 103; RESP 20; O2SAT 94
[2020-07-23] MEDS: IPRATROPIUM BR 0.02% INH SOLN 0.5 MG/2.5 ML VIAL INHALATION (01:18)
[2020-07-23] MEDS: ALBUTEROL SULFATE NEB 2.5 MG/0.5 ML INH INHALATION (01:18)
[2020-07-23 01:24] VITALS: PULSE 105; RESP 20
[2020-07-23 06:03] VITALS: BP 160/80; PULSE 100; RESP 22; TEMP 36.1; O2SAT 90
[2020-07-23] MEDS: LORazepam INJ (*CRX) 2 MG/ML VIAL 0.5 MG IV PUSH (06:17)
[2020-07-23] MEDS: GABAPENTIN 300 MG CAPSULE PO (06:17)
[2020-07-23] MEDS: lamoTRIgine 100 MG TABLET PO (09:30)
[2020-07-23] MEDS: FUROSEMIDE 40 MG TABLET PO (09:30)
[2020-07-23] MEDS: lisinopriL 20 MG TABLET PO (09:30)
[2020-07-23] MEDS: VENLAFAXINE HCL XR 75 MG CAP.ER.24H 150 MG PO (09:30)
[2020-07-23] MEDS: PHENYTOIN SODIUM 100 MG CAP PO (09:31)
[2020-07-23 09:35] VITALS: O2SAT 92
[2020-07-23 10:23] VITALS: O2SAT 93
--- NOTE | 2020-07-23 10:59 | PM.DS ---
DS: Admitting Diagnosis Admitting Diagnosis Admitting Diagnosis: Shortness of breath Ms. Hall is a 59yo F with history of COPD, chronic respiratory failure on 3 L nasal cannula, CHF who presented to the ED for evaluation of shortness of breath.She describes she has been coughing up green phlegm. She describes that she does have a nebulizer at home, oxygen and triology machine. Pt doing well on 3- 4 liters, ready for dischrage. DS: Discharge Diagnosis Discharge Diagnosis (1) Acute on chronic respiratory failure with hypoxia and hypercapnia: Code(s): J96.21 - Acute and chronic respiratory failure with hypoxia; J96.22 - Acute and chronic respiratory failure with hypercapnia Status: Acute Assessment and Plan: Patient recently admitted one week ago for same. Suspect secondary to COPD exacerbation questionable compliance with PAP therapy, she has a Trilogy unit at home that she does not use every night. ABG on arrival with pH 7.247, pCO2 85.8, PO2 90 on her home requirement of 3 L O2 nasal cannula; continuous BiPAP initiated in ABGs a bit improved. Continue therapy for COPD exacerbation with IV Solu-Medrol, nebulized bronchodilator therapy. Pt doing better on 3 liters of oxygen yesterday and this morning and sats are good. Lungs are clear pt is ready of discharge (2) Acute exacerbation of chronic obstructive pulmonary disease: Code(s): J44.1 - Chronic obstructive pulmonary disease with (acute) exacerbation Status: Acute Assessment and Plan: See above. Continue IV Solu-Medrol, DuoNebs. Transition to prednisone orally and continue her home regime (3) Chronic diastolic heart failure: Code(s): I50.32 - Chronic diastolic (congestive) heart failure Status: Chronic Assessment and Plan: Recent echocardiogram last week shows normal systolic function, EF 60-65%; moderate pulmonary hypertension; trace mitral and tricuspid regurgitation. Continue Lasix (4) Dementia: Qualifiers: Dementia type: unspecified type Dementia behavioral disturbance: without behavioral disturbance Qualified Code(s): F03.90 - Unspecified dementia without behavioral disturbance Code(s): F03.90 - Unspecified dementia without behavioral disturbance Status: Resolved Assessment and Plan: Waxes and wanes (5) Chronic anticoagulation: Code(s): Z79.01 - nursing home (current) use of anticoagulants Status: Chronic Assessment and Plan: Continue long-term anticoagulation with Xarelto, which she takes for history of DVT according to the EMR. (6) Chronic anemia: Code(s): D64.9 - Anemia, unspecified Status: Chronic Assessment and Plan: Chronic normocytic anemia is noted. No evidence of acute bleeding today. (7) Seizure disorder: Code(s): G40.909 - Epilepsy, unspecified, not intractable, without status epilepticus Status: Chronic Assessment and Plan: History of seizure disorder; continue her home phenytoin and the Lamictal. (8) HTN (hypertension): Code(s): I10 - Essential (primary) hypertension Status: Chronic Assessment and Plan: BPs are slightly elevated, Bp 160/80 (9) Tobacco dependence: Code(s): F17.200 - Nicotine dependence, unspecified, uncomplicated Status: Chronic Assessment and Plan: Patient continues to smoke. Smoking cessation encouraged. (10) Chronic pain syndrome: Code(s): G89.4 - Chronic pain syndrome Status: Chronic Assessment and Plan: Continue pain regimen for treat
== END 2020-07-23 12:00 | disposition home or self-care (01) | DRG 190 ==
LOC: ANHED 10:05 → ANHIMU 14:15 → ANH3MED 07-22 16:10 → ANHIMU 07-27 15:56
PROVIDERS: Physician Assistant; Admitting Provider Internal Medicine; Emergency Provider Emergency Medicine; PCP Internal Medicine; Visit Provider Family Medicine
DX: J44.1 Chronic obstructive pulmonary disease with (acute) exacerbation (principal); J96.21 Acute and chronic respiratory failure with hypoxia; J96.22 Acute and chronic respiratory failure with hypercapnia; I50.32 Chronic diastolic (congestive) heart failure; I11.0 Hypertensive heart disease with heart failure; Z20.828 Contact with and (suspected) exposure to other viral communicable diseases; Z99.81 Dependence on supplemental oxygen; F17.290 Nicotine dependence, other tobacco product, uncomplicated; G47.33 Obstructive sleep apnea (adult) (pediatric); I25.10 Atherosclerotic heart disease of native coronary artery without angina pectoris; F03.90 Unspecified dementia, unspecified severity, without behavioral disturbance, psychotic disturbance, mood disturbance, and anxiety; D64.9 Anemia, unspecified; G40.909 Epilepsy, unspecified, not intractable, without status epilepticus; G89.4 Chronic pain syndrome; G62.9 Polyneuropathy, unspecified; E78.5 Hyperlipidemia, unspecified; F41.8 Other specified anxiety disorders; Z79.01 Long term (current) use of anticoagulants; Z79.899 Other long term (current) drug therapy; Z88.0 Allergy status to penicillin
CPT/HCPCS: 36415; 36600; 71045; 80053; 80185; 80307; 81003; 82140; 82375; 82728; 82805; 83050; 83615; 83735; 83880; 84484; 85025; 86140; 87635; 93005; 94002; 94003; 94640; 96374; 97110; 97116; 97161; 99291; A9270; C9803; J1940; J2060; J2930; U0003

== ENCOUNTER 2020-09-25 13:48 | Inpatient (IN) | payer MEDICARE, MEDICAID, SELFPAY ==
[2020-09-25] VITALS (10 sets, daily range): BP systolic 121–156; BP diastolic 54–78; PULSE 90–94; RESP 16–28; TEMP 36.8; O2SAT 96–100
--- NOTE | ~2020-09-25 | CT_ITS ---
EXAMINATION: CT brain wo con INDICATION: Headache and confusion COMPARISON: 08/26/2019 TECHNIQUE: Standard unenhanced head CT. The dose-length product (DLP) was 605.33 mGy-cm. The mA was a djusted according to patient size. Iterative reconstruction technique was employed. FINDINGS: Motion artifact slightly limits the examination. There is no acute intraparenchymal hemorrh age. No evidence of mass lesion. No evidence of acute infarction. There is mild periventricular and s ubcortical hypodensity probably related to small vessel ischemic disease. There is mild prominence of the sulci and ventricles related to cerebral atrophy. Intracranial calcified cerebral atherosclerosi s is noted. There are no extra-axial collections. There is no mass effect or midline shift. The orbit s and soft tissues are unremarkable. The visualized sinuses and mastoid air cells are well aerated. IMPRESSION: 1. No acute intracranial abnormality. 2. Age related findings. Reviewed, dictated and finalized at location A. OR QUANTITY SURVEYOR
--- NOTE | ~2020-09-25 | XR_ITS ---
EXAMINATION: XR chest 2V DATE: 09/25/2020 16:41 INDICATION: Shortness of breath TECHNIQUE: AP and lateral views of the chest are obtained. COMPARISON: 07/21/2020 FINDINGS: The lungs are free of acute opacities. There is no pleural effusion or pneumothorax. The ca rdiomediastinal silhouette is normal. There is mild thoracic spondylosis. IMPRESSION: 1. No acute cardiopulmonary abnormality. Reviewed, dictated and finalized at location A. ASSISTANT
--- NOTE | 2020-09-25 16:13 | ECG_ITS ---
Measurements Intervals [place] Rate: 88 P: 75 DE: 149 QRS: 46 QRSD: 92 T: 57 QT: 334 QTc: 406 Interpretive Statements SINUS RHYTHM INCOMPLETE RIGHT BUNDLE BRANCH BLOCK BASELINE WANDER- I, II, V6 BORDERLINE ECG Electronically Signed On 09-25-2020 16:34:46 CHIP TUNER by Jovan Quintanilla D.O.
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
[2020-09-25 16:50] LABS: Basophils Absolute Auto 0.1 K/mm3 (0.0-0.1); Basophils Percent Auto 0.7 % (0.2-1.2); Eosinophils Absolute Auto 0.3 K/mm3 (0-0.3); Eosinophils Percent Auto 3.4 % (0-4.4); Hematocrit 39.1 % (37.0-47.0); Hemoglobin 11.4 g/dL (12.0-15.0); Immature Granulocyte Absolute 0.01 K/mm3 (0.00-0.031); Immature Granulocyte Percent A 0.1 % (0-0.5); Lymphocytes Absolute Auto 2.09 K/mm3 (0.9-3.2); Lymphocytes Percent Auto 27.2 % (18.3-44.2); Mean Corpuscular HGB Conc 29.2 g/dl (32-36); Mean Corpuscular Hemoglobin 28.1 pg (26-34); Mean Corpuscular Volume 96.3 fl (80-100); Mean Platelet Volume 9.3 fl (7.4-10.4); Monocytes Absolute Auto 0.7 K/mm3 (0.1-0.6); Monocytes Percent Auto 9.4 % (2.6-8.5); Neutrophils Absolute Auto 4.5 K/mm3 (1.3-6.7); Neutrophils Percent Auto 59.2 % (45.5-73.1); Platelet Count Result 265 k/mm3 (150-375); Red Blood Count 4.06 M/mm3 (4.2-5.4); Red Cell Distribution Width 12.7 % (11.5-14.5); White Blood Count 7.7 K/mm3 (4.5-10.0)
--- NOTE | 2020-09-25 16:51 | PC.NURSE ---
3205- pt called RN to room for c/o left eye hurting really bad . Eye red in color. Reminded patient to stop rubbing eye. Dr. Boyd made aware.
[2020-09-25 16:57] LABS: Hypochromasia 2+ (NORMAL); Platelet Estimate Adequate (Adequate)
[2020-09-25 16:59] LABS: Glucose Point of Care 103 (65-105)
[2020-09-25 17:02] LABS: Blood Urea Nitrogen 8 mg/dL (7-17); Calcium 9.1 mg/dL (8.4-10.2); Carbon Dioxide > 40 mmol/L (22-30); Chloride 92 mmol/L (98-107); Estimated CRCL calculation 96 ml/min; Estimated Glomerular Filt Rate > 60; Glucose 117 mg/dL (65-105); Potassium 5.5 mmol/L (3.4-5.0); Sodium 133 mmol/L (137-145)
[2020-09-25 17:06] LABS: Alanine Aminotransferase 23 U/L (4-35); Alkaline Phosphatase 146 U/L (38-126); Aspartate Amino Transferase 34 U/L (14-36); Bilirubin,Total 0.2 mg/dL (0.2-1.3)
[2020-09-25] MEDS: ACETAMINOPHEN 325 MG TABLET 650 MG PO (18:12)
[2020-09-25] MEDS: LORazepam INJ (*CRX) 2 MG/ML VIAL 0.5 MG IV PUSH (19:00)
--- NOTE | 2020-09-25 19:05 | PC.NURSE ---
185- pt AXO x3 went to patients room, patient standing on side of bed urinating on floor. Clothes are on floor. Pt stated I didnt want to use bedpan. Informed Dr. Boyd still trying to obtain urine specimen.
--- NOTE | 2020-09-25 19:38 | PC.NURSE ---
pt called out wanting help but states she wants someone with her , pt was made aware that we cannot sit in room with her while we have other patients to take care of. pt states she understands and ready to go home .
[2020-09-25 20:06] LABS: Alveolar/Arterial O2 Gradient 54.6 mmHg; Fractional Inspired Oxygen 32 %; HCO3 ABG 37.4 mEq/l (22.0-26.0); Oxyhemoglobin 88.4 % THb (90.0-100.0); PO2 ABG 64.2 mmHg (80.0-100.0); PO2 FiO2 Ratio Arterial Blood 2.01 %; Total Hemoglobin 11.2 g/dL (12.0-18.0)
[2020-09-25 20:07] LABS: Device NASAL CANNULA; Oxygen Saturation ABG 86.5 % (95.0-100.0); PCO2 ABG 93.5 mmHg (35.0-45.0); Site Drawn RIGHT BRACHIAL
--- NOTE | 2020-09-25 20:26 | PC.NURSE ---
Patient's daughter returns call. Ebony stated she will call to have patient picked up.
[2020-09-25] MEDS: IPRATROPIUM BR 0.02% INH SOLN 0.5 MG/2.5 ML VIAL INHALATION (21:37)
[2020-09-25] MEDS: ALBUTEROL SULFATE NEB 2.5 MG/0.5 ML INH 5 MG INHALATION (21:37)
[2020-09-25] MEDS: methylPREDNISolone SOD SUCC 125 MG VIAL IV PUSH (21:49)
--- NOTE | 2020-09-25 21:57 | PC.NURSE ---
Pt lethargic on bipap. Notified Dr. Boyd. VS 153/80, HR 92, SPO2 100% Resp 15. Verbal order given to repeat ABG. ED Respiratory called and notified.
[2020-09-25 22:13] LABS: Alveolar/Arterial O2 Gradient 44.3 mmHg; Base Excess ABG 7.3 mEq/l (+/-2.0); Fractional Inspired Oxygen 30 %; HCO3 ABG 37.6 mEq/l (22.0-26.0); Oxygen Content ABG 13.6 %vol (16.0-22.0); Oxyhemoglobin 87.1 % THb (90.0-100.0); PO2 FiO2 Ratio Arterial Blood 2.03 %; Total Hemoglobin 11.1 g/dL (12.0-18.0)
[2020-09-25 22:15] LABS: PCO2 ABG 92.4 mmHg (35.0-45.0); pH ABG 7.227 (7.350-7.450)
[2020-09-25 22:16] LABS: Device NON-INVASIVE VENT; Modified Allen's Test Pass; Oxygen Saturation ABG 84.9 % (95.0-100.0); Site Drawn LEFT RADIAL
[2020-09-25 22:17] LABS: Non-Invasive Expiratory Pressure 6 CMH2O; Non-Invasive Inspiratory Pressure 12 CMH2O; Non-Invasive Vent Rate 18 /MIN
[2020-09-26] VITALS (23 sets, daily range): BP systolic 142–162; BP diastolic 61–77; PULSE 90–107; RESP 20–27; TEMP 36.1–36.6; O2SAT 90–98; BMI 27.5
--- NOTE | 2020-09-26 01:11 | ADMGEN ---
This patient, Mary Alice Hall, was admitted to IMU Room 232-01 on 09/25/19 at 2355. Patient/family oriented to hospital policies and general routines including ID bracelet, bed and alarms, visiting hours, pain management, procedures, bathroom and other care routines, personal items, smoking policy, room service/diet, and visiting hours. Information on how to activate the Rapid Response Team has been discussed. Patient/Family are encouraged to report perceived risks to care and to ask questions if they do not understand what they are told or what they should do.
[2020-09-26 03:15] LABS: Alveolar/Arterial O2 Gradient 62.6 mmHg; Base Excess ABG 7.6 mEq/l (+/-2.0); Carboxyhemoglobin 2.3 % THb (0-2.0); Fractional Inspired Oxygen 30 %; HCO3 ABG 36.9 mEq/l (22.0-26.0); Methemoglobin ABG 0.3 %THb (0-1.5); Oxygen Content ABG 14.4 %vol (16.0-22.0); PO2 ABG 56.7 mmHg (80.0-100.0); PO2 FiO2 Ratio Arterial Blood 1.89 %; Reduced Hemoglobin 10.4 %THb (0-5.0); Total Hemoglobin 11.8 g/dL (12.0-18.0)
[2020-09-26 03:17] LABS: pH ABG 7.279 (7.350-7.450)
[2020-09-26 03:18] LABS: Device NON-INVASIVE VENT; Modified Allen's Test Pass; Oxygen Saturation ABG 84.3 % (95.0-100.0); PCO2 ABG 80.5 mmHg (35.0-45.0); Site Drawn RIGHT RADIAL
[2020-09-26 03:19] LABS: Non-Invasive Expiratory Pressure 8 CMH2O; Non-Invasive Inspiratory Pressure 15 CMH2O; Non-Invasive Vent Rate 22 /MIN
--- NOTE | 2020-09-26 03:23 | PM.IMHP ---
H&P: HPI History of Present Illness Date/Time: 09/25/20 23:55 Chief Complaint: Having a fight with her daughter Narrative: Mary Alice Hall is a 59 year old female who is well known to the hospitalist service with past medical history of chronic hypercapnic respiratory failure, diastolic congestive heart failure, obstructive sleep apnea, chronic pain syndrome, and continued tobacco abuse who presented to the ER after having gotten in a fight with her daughter. The patient is easily distracted and is a difficult historian. She reported after she had been in the ER for quite some time that she was incidentally having some increased shortness of breath. She has had 3 days of increased shortness of breath and cough productive of yellow sputum. She reports that her a nebulizer machine has been broke for the last week. She has continued to smoke 1 pack of cigarettes per day. She has not been having any fevers, chills or recent ill contacts. She denies any loss of sensation of taste or smell. She denies any chest pain or palpitations. She denies any lower extremity edema or orthopnea. She complains of some left eye redness in burning. Her eyes been draining purulence material for the last 3-5 days. She denies any vision changes. She reports feeling anxious and is requesting her Xanax. She is also complaining of generalized pain. Patient has had 3 prior negative COVID test 1 in April and 2 in July. Review of Systems Review of Systems: Narrative: 12 systems were reviewed with pertinent positives and negatives per HPI. Except as documented in the HPI, all other systems were reviewed and are negative. However somewhat limited as the patient is a poor historian. FOR[facility]LY [facility] Past Medical History Medical History Acute exacerbation of chronic obstructive pulmonary disease Arthritis Asthma CAD (coronary artery disease) Chronic diastolic heart failure Chronic pain syndrome Chronic respiratory failure with hypoxia and hypercapnia Dementia patient denies Depression with anxiety Emphysema/COPD History of deep vein thrombosis on chronic anticoagulation with Xarelto HTN (hypertension) Hyperlipidemia Obstructive sleep apnea Peripheral neuropathy Pneumonia Seizures Tobacco dependence Surgical History Surgical History H/O section x2 Family History Family History Other Acute myocardial infarction Cerebrovascular accident Diabetes mellitus Hypertension Social History Social History Social History: She is disabled. She is . She lives with her daughter and daughter's boyfriend. Patient continues to smoke and is at 3 cigarettes per day. The patient is reportedly a recovering alcoholic. She also smokes marijuana as well; she reports around once weekly. Primary care physician: Dr. 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 Gender identity (if verbalized by the patient): Female Sexual Orientation (if Verbalized by the Patient): Straight or Heterosexual Spiritual care concerns: No Agree to blood products: No Meds Home Medications and Allergies Home Medications Medication Instructions Recorded Confirmed Type Xarelto 20 mg PO DAILY 08/26/19 09/26/20 History albuterol sulfate 2.5 mg INHALATION TID 08/26/19 09/26/20 History venlafaxine [Effexor
[2020-09-26] MEDS: ALBUTEROL SULFATE NEB 2.5 MG/0.5 ML INH 5 MG INHALATION ×4 (03:34→22:48)
[2020-09-26] MEDS: IPRATROPIUM BR 0.02% INH SOLN 0.5 MG/2.5 ML VIAL INHALATION ×4 (03:35→22:48)
[2020-09-26] MEDS: GENTAMICIN SULFATE 0.3% OP OINT 3.5 GM TUBE 1 APPLIC LEFT EYE ×2 (05:31→21:05)
[2020-09-26] MEDS: PHENYTOIN SODIUM 100 MG CAP PO ×4 (05:31→19:04)
[2020-09-26] MEDS: GABAPENTIN 300 MG CAPSULE PO ×4 (05:31→19:04)
[2020-09-26] MEDS: VENLAFAXINE HCL XR 75 MG CAP.ER.24H 150 MG PO ×2 (05:32→08:33)
[2020-09-26 05:53] LABS: Hematocrit 33.6 % (37.0-47.0); Mean Corpuscular HGB Conc 29.8 g/dl (32-36); Mean Corpuscular Hemoglobin 27.2 pg (26-34); Mean Corpuscular Volume 91.3 fl (80-100); Mean Platelet Volume 10.1 fl (7.4-10.4); Platelet Count Result 259 k/mm3 (150-375); Red Blood Count 3.68 M/mm3 (4.2-5.4); Red Cell Distribution Width 12.6 % (11.5-14.5); White Blood Count 4.8 K/mm3 (4.5-10.0)
[2020-09-26 06:02] LABS: Blood Urea Nitrogen 12 mg/dL (7-17); Calcium 8.9 mg/dL (8.4-10.2); Carbon Dioxide > 40 mmol/L (22-30); Chloride 90 mmol/L (98-107); Estimated CRCL calculation 85 ml/min; Estimated Glomerular Filt Rate > 60; Glucose 153 mg/dL (65-105); Potassium 4.9 mmol/L (3.4-5.0); Sodium 129 mmol/L (137-145)
[2020-09-26 08:06] LABS: Alveolar/Arterial O2 Gradient 125.4 mmHg; Base Excess ABG 9.9 mEq/l (+/-2.0); Fractional Inspired Oxygen 40 %; HCO3 ABG 38.5 mEq/l (22.0-26.0); Methemoglobin ABG 0.3 %THb (0-1.5); Oxygen Content ABG 14.3 %vol (16.0-22.0); Oxygen Saturation ABG 92.1 % (95.0-100.0); PO2 ABG 71.1 mmHg (80.0-100.0); PO2 FiO2 Ratio Arterial Blood 1.78 %; Reduced Hemoglobin 6.7 %THb (0-5.0); pH ABG 7.316 (7.350-7.450)
[2020-09-26 08:09] LABS: Device NON-INVASIVE VENT; PCO2 ABG 77.1 mmHg (35.0-45.0); Site Drawn LEFT BRACHIAL
[2020-09-26 08:10] LABS: Non-Invasive Expiratory Pressure 8 CMH2O; Non-Invasive Inspiratory Pressure 18 CMH2O; Non-Invasive Vent Rate 22 /MIN
[2020-09-26] MEDS: HYDROcodone/acetaminophen (*CRX) 7.5-325 MG TABLET 1 TAB PO ×3 (08:32→19:06)
[2020-09-26] MEDS: ALPRAZolam (*CRX) 0.5 MG TABLET PO ×3 (08:32→19:05)
[2020-09-26] MEDS: lamoTRIgine 100 MG TABLET PO ×2 (08:34→19:05)
[2020-09-26] MEDS: FUROSEMIDE 40 MG TABLET PO (08:34)
[2020-09-26] MEDS: PANTOPRAZOLE 40 MG TABLET PO (08:34)
[2020-09-26] MEDS: methylPREDNISolone SOD SUCC 40 MG VIAL IV PUSH ×3 (08:35→19:04)
[2020-09-26 10:30] LABS: Add Urine Microscopic? YES; Appearance Urine Clear (Clear); Bacteria Urine Trace /hpf; Bilirubin Urine Negative (Negative); Blood Urine Negative (Negative); Budding Yeast Urine Present /hpf; Color Urine Colorless (Yellow); Glucose Urine UA Negative (Negative); Ketones Urine Negative (Negative); Leukocyte Esterase Ur 1+ LEU/UL (Negative); Nitrate Urine Negative (Negative); Protein Urine Negative (Negative); RBC Urine 0-2 /hpf (0-2); Specific Grav Ur 1.008 (1.001-1.035); Squamous Epithelial Cell Urine Few /hpf (Few); Urobilinogen Urine Negative mg/dL (<2.0); WBC Urine 21-30 /hpf
--- NOTE | 2020-09-26 12:13 | PM.IMPN ---
Progress Note: A&P Assessment and Plan (1) Acute exacerbation of chronic obstructive pulmonary disease: Code(s): J44.1 - Chronic obstructive pulmonary disease with (acute) exacerbation Status: Acute Assessment and Plan: Breathing treatments Currently on BiPAP Systemic steroids Supportive care Levofloxacin 750 mg iv (2) Acute on chronic respiratory failure with hypoxia and hypercapnia: Code(s): J96.21 - Acute and chronic respiratory failure with hypoxia; J96.22 - Acute and chronic respiratory failure with hypercapnia Status: Acute Assessment and Plan: Patient is a current every day smoker. Likely secondary to COPD exacerbation ABG is improved. Continuous BiPAP (3) Tobacco dependence: Code(s): F17.200 - Nicotine dependence, unspecified, uncomplicated Status: Chronic Assessment and Plan: Nicotine patch as needed. (4) Person under investigation for COVID-19: Code(s): Z20.828 - Contact with and (suspected) exposure to other viral communicable diseases Status: Acute Assessment and Plan: Awaiting test results Continue isolation Has tested negative in three different occasions. (5) Hyperkalemia: Code(s): E87.5 - Hyperkalemia Status: Acute Assessment and Plan: On breathing treatments. Will monitor (6) Chronic pain syndrome: Code(s): G89.4 - Chronic pain syndrome Status: Chronic Assessment and Plan: Resume home meds Caution with opiates (7) Chronic diastolic heart failure: Code(s): I50.32 - Chronic diastolic (congestive) heart failure Status: Chronic Assessment and Plan: Stable Gentle diuresis Daily I/O's Subjective Date/time seen: 09/26/20 12:13 States that she is in a lot of pain. Review of Systems Review of Systems: Narrative: Patient is on BiPAP. ROS unobtainable: Yes unobtainable due to medical condition Exam Narrative: Exam Narrative: Patient in bed on BiPAP. Const: General: no acute distress (However on BiPAP), alert, awake, Physically active and ill appearing Nutritional Appearance: average body habitus Orientation/consciousness: patient oriented x3 HENMT: Head: normocephalic General nose exam: Normal external nose present Face and sinus: normal facial exam Eyes: General: appearance normal, both eyes and all related structures Pupils: Equal, round and reactive pupils present EOM: EOMs intact bilaterally Neck: Neck: no lymphadenopathy, supple and no JVD Resp: Auscultation: diminished lung sounds Cardio: Jugular venous distension: no JVD Rate: regular rate Rhythm: regular rhythm GI: GI Palp: Yes Soft to palpation and Yes No hepatosplenomegaly present Skin: Wounds: no wounds Neuro: General: patient oriented x3 and CN's II-XI intact bilaterally Cranial nerves: Yes CN's II-XII intact bilaterally and Yes Equal, round and reactive pupils present Cognition (Neuro): normal cognition Motor exam (neuro): 5/5 motor strength present throughout Extrem: General: no pedal edema Objective Data Vital Signs Vital Signs: Vital Signs - 24 hr 09/25/20 13:59 09/25/20 15:00 09/25/20 16:03 Temperature 98.3 F Pulse Rate 91 93 Respiratory Rate 16 16 Blood Pressure 121/66 136/54 L Pulse Oximetry 97 97 97 09/25/20 20:29 09/25/20 21:24 09/25/20 21:37 Temperature Pulse Rate 93 94 94 Respiratory Rate 19 25 H 18 Blood Pressure Pulse Oximetry 100 97 09/25/20 21:45 09/25/20 22:06 09/25/20 23:00 Temperature Pulse Rate 93 90 90 Respiratory Rate 20 28 H 28 H Blood Pressure Pulse Oximetry 97 96 09/25/20 23:44 09/26/20 00:00 09/26/20 00:15 Temperature 97.3 F L Pulse Rate 93 99 101 H Respiratory Rate 18 25 H 25 H Blood Pressure 156/78 H 155/61 H Pulse Oximetry 100 92 92 09/26/20 02:00 09/26/20 03:33 09/26/20 03:35 Temperature Pulse Rate 96 98 90 Respiratory Rate 25 H 22 H Blood Pressure Pulse Oximetry 95
[2020-09-26] MEDS: guaiFENesin/CODEINE (*CRX) 200/20 MG 10 ML SYRUP PO ×2 (13:44→19:05)
[2020-09-26] MEDS: lisinopriL 20 MG TABLET PO (13:45)
[2020-09-26] MEDS: RIVAROXABAN 20 MG TABLET PO (19:04)
[2020-09-27] VITALS (9 sets, daily range): BP systolic 136–175; BP diastolic 72–79; PULSE 85–101; RESP 16–32; TEMP 36–36.8; O2SAT 90–95
[2020-09-27 00:20] LABS: SARS-CoV-2 RNA PCR Negative
--- NOTE | 2020-09-27 04:31 | PCRCNOTE ---
Window of time for administration has passed. See next scheduled administration.
[2020-09-27] MEDS: guaiFENesin/CODEINE (*CRX) 200/20 MG 10 ML SYRUP PO ×2 (09:44→20:57)
[2020-09-27] MEDS: ALPRAZolam (*CRX) 0.5 MG TABLET PO ×3 (09:44→18:02)
[2020-09-27] MEDS: lamoTRIgine 100 MG TABLET PO ×2 (09:44→17:59)
[2020-09-27] MEDS: GABAPENTIN 300 MG CAPSULE PO ×3 (09:44→17:58)
[2020-09-27] MEDS: HYDROcodone/acetaminophen (*CRX) 7.5-325 MG TABLET 1 TAB PO ×3 (09:44→18:02)
[2020-09-27] MEDS: methylPREDNISolone SOD SUCC 40 MG VIAL IV PUSH ×3 (09:45→17:58)
[2020-09-27] MEDS: lisinopriL 20 MG TABLET PO (09:45)
[2020-09-27] MEDS: PANTOPRAZOLE 40 MG TABLET PO (09:45)
[2020-09-27] MEDS: FUROSEMIDE 40 MG TABLET PO (09:45)
[2020-09-27] MEDS: VENLAFAXINE HCL XR 75 MG CAP.ER.24H 150 MG PO (09:46)
[2020-09-27] MEDS: PHENYTOIN SODIUM 100 MG CAP PO ×3 (09:47→17:58)
--- NOTE | 2020-09-27 11:55 | PCPTNOTE ---
Orders received...nursing requested to defer therapy...patient is currently asleep, and nursing would like her to remain so for the time being...will check with nursing again this p.m.
[2020-09-27] MEDS: ALPRAZolam (*CRX) 0.5 MG TABLET 1 MG PO (13:13)
[2020-09-27] MEDS: HYDROmorphone HCL INJ (*CRX) 1 MG/ML SYR 0.5 MG IV PUSH (14:30)
--- NOTE | 2020-09-27 14:35 | PM.IMPN ---
Progress Note: A&P Assessment and Plan (1) Chronic pain syndrome: Code(s): G89.4 - Chronic pain syndrome Status: Chronic (2) Acute on chronic respiratory failure with hypoxia and hypercapnia: Code(s): J96.21 - Acute and chronic respiratory failure with hypoxia; J96.22 - Acute and chronic respiratory failure with hypercapnia Status: Acute Assessment and Plan: Used BiPAP all night Improved (3) Person under investigation for COVID-19: Code(s): Z20.828 - Contact with and (suspected) exposure to other viral communicable diseases Status: Acute Assessment and Plan: Ruled out (4) Acute exacerbation of chronic obstructive pulmonary disease: Code(s): J44.1 - Chronic obstructive pulmonary disease with (acute) exacerbation Status: Acute Assessment and Plan: Still having bronchospasm Systemic steroids (5) Chronic diastolic heart failure: Code(s): I50.32 - Chronic diastolic (congestive) heart failure Status: Chronic Assessment and Plan: Continue to monitor Does not appear to be exacerbated (6) Tobacco dependence: Code(s): F17.200 - Nicotine dependence, unspecified, uncomplicated Status: Chronic Assessment and Plan: Nicotine patch as needed Additional Plan Progress Note: A&P Assessment and Plan (1) Acute exacerbation of chronic obstructive pulmonary disease: Assessment and Plan: Breathing treatments Currently on BiPAP Systemic steroids Supportive care Levofloxacin 750 mg iv (2) Acute on chronic respiratory failure with hypoxia and hypercapnia: Assessment and Plan: Patient is a current every day smoker. Likely secondary to COPD exacerbation ABG is improved. Continuous BiPAP (3) Tobacco dependence: Assessment and Plan: Nicotine patch as needed. (4) Person under investigation for COVID-19: Assessment and Plan: Awaiting test results Continue isolation Has tested negative in three different occasions. (5) Hyperkalemia: Assessment and Plan: On breathing treatments. Will monitor (6) Chronic pain syndrome: Assessment and Plan: Resume home meds Caution with opiates (7) Chronic diastolic heart failure: Assessment and Plan: Stable Gentle diuresis Daily I/O's Subjective Date/time seen: 09/27/20 14:35 Having back pain. No new issues overnight. Review of Systems Review of Systems: Narrative: States that she feels close to her usual. Constitutional: Comments: no chills, no rigors. Eyes: Comments: L eye redness. Cardiovascular: Comments: no chest pain Respiratory: Comments: wheezing Gastrointestinal: Comments: no n/v/abdominal pain. Musculoskeletal: Comments: Back pain. Integumentary/Breasts: Comments: no rashes Neurologic: Comments: no sensory motor deficit. Exam Narrative: Exam Narrative: Sitting in bed. Const: General: comfortable, alert, awake and anxious Nutritional Appearance: average body habitus Orientation/consciousness: patient oriented x3 HENMT: Head: normal to inspection and normocephalic Face and sinus: normal facial exam Eyes: Conjunctivae: conjunctival abnormality left other (redness) EOM: EOMs intact bilaterally Neck: Neck: no lymphadenopathy, supple and no JVD Resp: Effort & Inspection: able to speak in complete sentences Auscultation: wheezes Cardio: Jugular venous distension: no JVD Rate: regular rate Rhythm: regular rhythm GI: GI Palp: Yes Soft to palpation and Yes No hepatosplenomegaly present Skin: Wounds: no wounds Neuro: General: patient oriented x3 and CN's II-XI intact bilaterally Cranial nerves: Yes CN's II-XII intact bilaterally and Yes Equal, round and reactive pupils present Cognition (Neuro): normal cognition Speech: normal speech Gait exam (Neuro): Normal gait present Motor exam (neuro): 5/5 motor strength present throughout Extrem: General: no pedal edema Objective Data Vital Signs Vital Signs: Vital
[2020-09-27] MEDS: ALBUTEROL SULFATE NEB 2.5 MG/0.5 ML INH 5 MG INHALATION ×2 (14:49→19:32)
[2020-09-27] MEDS: IPRATROPIUM BR 0.02% INH SOLN 0.5 MG/2.5 ML VIAL INHALATION ×2 (14:49→19:33)
--- NOTE | 2020-09-27 16:56 | PC.NURSE ---
This patient, Mary Alice Hall, was transferred to [facility] on 09/27/20 at 1600. Personal belongings sent with patient. Report given to Yeny HOBBS. Appropriate documentation sent with patient.
[2020-09-27] MEDS: RIVAROXABAN 20 MG TABLET PO (17:58)
[2020-09-27] MEDS: BUDESONIDE RESPULE NEB 0.5 MG/2 ML AMP 1 MG INHALATION (20:10)
[2020-09-27] MEDS: GENTAMICIN SULFATE 0.3% OP OINT 3.5 GM TUBE 1 APPLIC LEFT EYE (20:56)
[2020-09-28] VITALS (12 sets, daily range): BP systolic 131–144; BP diastolic 68–78; PULSE 87–94; RESP 16–23; TEMP 36–37.2; O2SAT 88–96
[2020-09-28] MEDS: IPRATROPIUM BR 0.02% INH SOLN 0.5 MG/2.5 ML VIAL INHALATION ×3 (01:36→19:07)
[2020-09-28] MEDS: ALBUTEROL SULFATE NEB 2.5 MG/0.5 ML INH INHALATION ×3 (01:37→19:07)
[2020-09-28] MEDS: HYDROcodone/acetaminophen (*CRX) 7.5-325 MG TABLET 1 TAB PO ×3 (04:03→16:17)
[2020-09-28] MEDS: lamoTRIgine 100 MG TABLET PO ×2 (08:01→16:18)
[2020-09-28] MEDS: FUROSEMIDE 40 MG TABLET PO (08:01)
[2020-09-28] MEDS: GABAPENTIN 300 MG CAPSULE PO ×3 (08:01→16:17)
[2020-09-28] MEDS: methylPREDNISolone SOD SUCC 40 MG VIAL IV PUSH ×3 (08:01→16:18)
[2020-09-28] MEDS: PHENYTOIN SODIUM 100 MG CAP PO ×3 (08:01→16:18)
[2020-09-28] MEDS: PANTOPRAZOLE 40 MG TABLET PO (08:01)
[2020-09-28] MEDS: VENLAFAXINE HCL XR 75 MG CAP.ER.24H 150 MG PO (08:01)
[2020-09-28] MEDS: lisinopriL 20 MG TABLET PO (08:01)
[2020-09-28] MEDS: ALPRAZolam (*CRX) 0.5 MG TABLET PO ×2 (08:04→16:17)
[2020-09-28] MEDS: BUDESONIDE RESPULE NEB 0.5 MG/2 ML AMP 1 MG INHALATION ×2 (09:22→19:07)
--- NOTE | 2020-09-28 09:27 | PM.CNPUL ---
Assessment and Plan Assessment and plan (1) Acute exacerbation of chronic obstructive pulmonary disease: Code(s): J44.1 - Chronic obstructive pulmonary disease with (acute) exacerbation Status: Acute Assessment and Plan: This patient has acute COPD exacerbation due to continued nicotine abuse and likely noncompliance with home medications. I spoke to her about quitting and taking her inhalers or nebulizer years as prescribed. - continued nebulized therapy as prescribed - I will add nebulized budesonide 1 mg Q 12 hours - I will decrease her systemic steroid doses because higher doses has led to increased psychosis and her in the past. A total of 5 days of low-dose systemic steroids should be sufficient for this case. -Patient could likely be discharged in the next 24-48 hours as she continues to improve. -she should follow up with us in Pulmonary Clinic approximately 2-4 weeks after discharge. History of Present Illness History of Present Illness Consult date: 09/28/20 Chief complaint: COPD exacerbation/left conjunctivitis/TOBACO DEPEN Narrative: This is 59-year-old female who is known to me that I have seen at [facility] with multiple COPD exacerbations. She continues to smoke about half a pack to a pack a day of cigarettes and was admitted this time with a similar presentation of increased cough shortness of breath and acute respiratory failure requiring noninvasive ventilation. She was started on systemic steroids, antibiotics and scheduled nebulized medications and today she feels much better and is requesting to go home. She also has significant psychiatric problems and sometimes goes acute delirium state and acute anxious psychosis state but she seems to be doing okay today. I am not sure how compliant she is with home inhaler therapy. Review of Systems Review of Systems: All systems reviewed & are unremarkable except as noted in HPI and below PMFSH Past Medical History Medical History (Updated 09/26/20 @ 03:51 by Nelsy Sampson DO) Arthritis Asthma CAD (coronary artery disease) Chronic diastolic heart failure Chronic pain syndrome Chronic respiratory failure with hypoxia and hypercapnia Dementia patient denies Depression with anxiety Emphysema/COPD History of deep vein thrombosis on chronic anticoagulation with Xarelto HTN (hypertension) Hyperlipidemia Obstructive sleep apnea Peripheral neuropathy Pneumonia Seizures Tobacco dependence Surgical History Surgical History H/O section x2 Family History Family History Other Acute myocardial infarction Cerebrovascular accident Diabetes mellitus Hypertension Social History Social History Social History: She is disabled. She is . She lives with her daughter and daughter's boyfriend. Patient continues to smoke and is at 3 cigarettes per day. The patient is reportedly a recovering alcoholic. She also smokes marijuana as well; she reports around once weekly. Primary care physician: Dr. 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 Gender identity (if verbalized by the patient): Female Sexual Orientation (if Verbalized by the Patient): Straight or Heterosexual Spiritual care concerns: No Agree to blood products: No Meds Home Medications and Allergies Home Medications Medication Instru
[2020-09-28] MEDS: NICOTINE (*PBKC) 21 MG PATCH 1 PATCH TRANSDERM (10:36)
[2020-09-28] MEDS: guaiFENesin/CODEINE (*CRX) 200/20 MG 10 ML SYRUP PO ×2 (10:41→19:50)
--- NOTE | 2020-09-28 11:18 | PM.IMPN ---
Progress Note: A&P Assessment and Plan (1) Acute exacerbation of chronic obstructive pulmonary disease: Code(s): J44.1 - Chronic obstructive pulmonary disease with (acute) exacerbation Status: Acute Assessment and Plan: Improved Breathing treatments Systemic steroids Continuous pulse ox BiPAP continuous at night time. NC (2) Acute on chronic respiratory failure with hypoxia and hypercapnia: Code(s): J96.21 - Acute and chronic respiratory failure with hypoxia; J96.22 - Acute and chronic respiratory failure with hypercapnia Status: Acute Assessment and Plan: Improved Pulmonology consult (3) Chronic pain syndrome: Code(s): G89.4 - Chronic pain syndrome Status: Chronic Assessment and Plan: Pain management. Gabapentin. (4) Conjunctivitis: Qualifiers: Conjunctivitis type: unspecified Laterality: left Qualified Code(s): H10.9 - Unspecified conjunctivitis Code(s): H10.9 - Unspecified conjunctivitis Status: Acute Assessment and Plan: Artificial tears prn (5) Person under investigation for COVID-19: Code(s): Z20.828 - Contact with and (suspected) exposure to other viral communicable diseases Status: Acute Assessment and Plan: Ruled out (6) Anxiety: Code(s): F41.9 - Anxiety disorder, unspecified Status: Acute Assessment and Plan: Continue Xanax prn Venlafaxine Lamotrigine Phenytoin (7) Tobacco dependence: Code(s): F17.200 - Nicotine dependence, unspecified, uncomplicated Status: Chronic Assessment and Plan: Nicotine patch. (8) Chronic diastolic heart failure: Code(s): I50.32 - Chronic diastolic (congestive) heart failure Status: Chronic Assessment and Plan: Stable Continue to monitor Lasix + Lisinopril Subjective Date/time seen: 09/28/20 11:18 I feel well. No events overnight. Review of Systems Review of Systems: Narrative: Patient denies any issues at this time. Musculoskeletal: Comments: back and knee pain. Exam Narrative: Exam Narrative: Sitting in bed. Const: General: comfortable, no acute distress, alert, awake, Physically active and other (Chronically ill looking.) Nutritional Appearance: average body habitus Limitations: no limitations HENMT: Head: normal to inspection and normocephalic Face and sinus: normal facial exam Eyes: Conjunctivae: conjunctival abnormality left other (pink) Sclera: scleral abnormality Pupils: Equal, round and reactive pupils present EOM: EOMs intact bilaterally Neck: Neck: no lymphadenopathy, supple and no JVD Resp: Auscultation: wheezes and diminished lung sounds Cardio: Jugular venous distension: no JVD Rate: regular rate Rhythm: regular rhythm GI: GI Palp: Yes Soft to palpation and Yes No hepatosplenomegaly present Skin: Wounds: no wounds Neuro: General: patient oriented x3 and CN's II-XI intact bilaterally Cranial nerves: Yes CN's II-XII intact bilaterally and Yes Equal, round and reactive pupils present Cognition (Neuro): normal cognition Gait exam (Neuro): Normal gait present Motor exam (neuro): 5/5 motor strength present throughout Extrem: General: no pedal edema Objective Data Vital Signs Vital Signs: Vital Signs - 24 hr 09/27/20 14:51 09/27/20 14:59 09/27/20 16:00 Temperature 97.1 F L Pulse Rate 97 96 98 Respiratory Rate 16 20 26 H Blood Pressure 136/74 Pulse Oximetry 92 95 09/27/20 16:45 09/27/20 19:33 09/27/20 19:41 Temperature 97.3 F L Pulse Rate 92 98 96 Respiratory Rate 22 H 20 20 Blood Pressure 148/76 H Pulse Oximetry 09/27/20 19:43 09/27/20 20:55 09/28/20 00:17 Temperature 98.3 F Pulse Rate 101 H Respiratory Rate 20 23 H Blood Pressure 141/72 H Pulse Oximetry 92 90 09/28/20 01:37 09/28/20 01:45 09/28/20 05:19 Temperature 99 F Pulse Rate 89 87 87 Respiratory Rate 18 18 18 Blood Pressure 131/68 Pulse Oximetry
--- NOTE | 2020-09-28 16:15 | PCRCNOTE ---
Window of time for administration has passed. See next scheduled administration.
[2020-09-28] MEDS: RIVAROXABAN 20 MG TABLET PO (16:18)
[2020-09-28] MEDS: GENTAMICIN SULFATE 0.3% OP OINT 3.5 GM TUBE 1 APPLIC LEFT EYE (20:08)
[2020-09-29] VITALS (7 sets, daily range): BP systolic 132–137; BP diastolic 67–68; PULSE 87–115; RESP 18–24; TEMP 35.9–36.2; O2SAT 93–94
[2020-09-29] MEDS: HYDROcodone/acetaminophen (*CRX) 7.5-325 MG TABLET 1 TAB PO ×3 (00:18→14:11)
[2020-09-29] MEDS: ALPRAZolam (*CRX) 0.5 MG TABLET PO ×3 (00:19→14:11)
[2020-09-29] MEDS: IPRATROPIUM BR 0.02% INH SOLN 0.5 MG/2.5 ML VIAL INHALATION ×2 (01:34→08:01)
[2020-09-29] MEDS: ALBUTEROL SULFATE NEB 2.5 MG/0.5 ML INH INHALATION ×2 (01:34→08:01)
[2020-09-29] MEDS: BUDESONIDE RESPULE NEB 0.5 MG/2 ML AMP 1 MG INHALATION (08:00)
[2020-09-29 08:08] LABS: Base Excess ABG 4.1 mEq/l (+/-2.0); Carboxyhemoglobin 0.3 % THb (0-2.0); Fractional Inspired Oxygen 32 %; HCO3 ABG 31.3 mEq/l (22.0-26.0); Oxygen Content ABG 15.5 %vol (16.0-22.0); Oxygen Saturation ABG 92.4 % (95.0-100.0); Oxyhemoglobin 91.5 % THb (90.0-100.0); PCO2 ABG 59.8 mmHg (35.0-45.0); PO2 ABG 69.2 mmHg (80.0-100.0); PO2 FiO2 Ratio Arterial Blood 2.16 %; Reduced Hemoglobin 8.2 %THb (0-5.0); pH ABG 7.337 (7.350-7.450)
[2020-09-29 08:09] LABS: Device NASAL CANNULA; Site Drawn LEFT BRACHIAL
[2020-09-29] MEDS: FUROSEMIDE 40 MG TABLET PO (08:28)
[2020-09-29] MEDS: lisinopriL 20 MG TABLET PO (08:28)
[2020-09-29] MEDS: VENLAFAXINE HCL XR 75 MG CAP.ER.24H 150 MG PO (08:28)
[2020-09-29] MEDS: PHENYTOIN SODIUM 100 MG CAP PO ×2 (08:28→14:11)
[2020-09-29] MEDS: GABAPENTIN 300 MG CAPSULE PO ×2 (08:28→14:11)
[2020-09-29] MEDS: PANTOPRAZOLE 40 MG TABLET PO (08:29)
[2020-09-29] MEDS: methylPREDNISolone SOD SUCC 40 MG VIAL IV PUSH (08:29)
[2020-09-29] MEDS: lamoTRIgine 100 MG TABLET PO (08:29)
[2020-09-29] MEDS: NICOTINE (*PBKC) 21 MG PATCH 1 PATCH TRANSDERM (08:38)
--- NOTE | 2020-09-29 14:02 | PM.PNPUL ---
Progress Note: A&P Assessment and Plan (1) Acute exacerbation of chronic obstructive pulmonary disease: Code(s): J44.1 - Chronic obstructive pulmonary disease with (acute) exacerbation Status: Acute Assessment and Plan: I discontinued her nebulized therapy and started her on Symbicort 160/ 4.5 mcg 2 puffs b.i.d. with a spacer device. Spiriva 18 mcg 1 puff daily She can continue albuterol MDI 2-4 puffs q.i.d. p.r.n. She must quit smoking tobacco or she will continue to be readmitted to the hospital with worsening and declining lung function. Antibiotics can be switched to oral equivalent to continue for 5-7 days total. Patient can be discharged home from my point of view. Subjective Date/time seen: 09/29/20 14:02 Interval history: She continues to feel much better and is anxious to be discharged home today. She is resting comfortably in bed and talking on the phone without any respiratory distress. Review of Systems Review of Systems: All systems reviewed & are unremarkable except as noted in HPI and below Exam Const: General: cooperative, healthy appearing, comfortable, no acute distress, well developed, alert, awake and Physically active HENMT: Head: normal to inspection, No palpable skull fracture present, normocephalic and atraumatic Eyes: General: appearance normal, both eyes and all related structures Neck: Neck: trachea midline and supple Resp: Effort & Inspection: normal respiratory effort and able to speak in complete sentences Auscultation: wheezes and diminished lung sounds Cardio: Jugular venous distension: no JVD Rate: regular rate Rhythm: regular rhythm Heart sounds: S1 normal heart sound present and S2 normal heart sound present GI: Inspection: normal to inspection Auscultation: normal bowel sounds Skin: General skin exam: normal color and no rashes or lesions noted Neuro: General: oriented to person, oriented to place, oriented to time and patient oriented x3 Cognition (Neuro): normal cognition Speech: normal speech Extrem: General: normal to inspection and no clubbing, cyanosis or edema Psych: Appearance: grossly normal and well kempt Mental Status: mental status grossly normal Objective Data Vital Signs Vital Signs: Vital Signs - 24 hr 09/28/20 14:32 09/28/20 19:07 09/28/20 19:20 Temperature 36.0 C L Pulse Rate 90 94 91 Respiratory Rate 16 18 18 Blood Pressure 144/78 H Pulse Oximetry 93 94 09/28/20 21:00 09/28/20 22:41 09/29/20 01:34 Temperature 37.1 C Pulse Rate 93 90 95 Respiratory Rate 18 19 18 Blood Pressure 143/75 H Pulse Oximetry 96 95 09/29/20 01:42 09/29/20 04:57 09/29/20 08:00 Temperature 36.2 C L Pulse Rate 92 87 Respiratory Rate 18 22 H Blood Pressure 137/67 Pulse Oximetry 94 93 09/29/20 08:01 09/29/20 08:13 Temperature Pulse Rate 100 115 H Respiratory Rate 18 20 Blood Pressure Pulse Oximetry Intake/Output Intake/Output: Intake & Output 09/26/20 09/27/20 09/28/20 09/29/20 23:59 23:59 23:59 23:59 Intake Total 590 2160 1840 800 Output Total 1900 1300 1000 Balance -1310 860 840 800 Meds/Results Medications: Active Medications Generic Name Dose Route Start Last Admin Trade Name Freq PRN Reason Stop Dose Admin Hydrocodone Bitart/Acetaminophen 1 tab 09/26/20 08:12 09/29/20 08:29 Hydrocodone/Acetaminophen (*Crx) 7.5-325 Mg Tablet PO 1 tab TID PRN Administration Pain (Scale Score 4-6) Albuterol 2 puff 09/26/20 08:12 Albuterol Sulfate (*Sp) Aerosol 1 Puff INHALATION QID PRN Shortness Of Breath Or Wheezing Alprazolam 0.5 mg 09/26/20 08:12 09/29/20 08:29 Alprazolam (*Crx) 0.5 Mg Tablet PO 0.5 mg TID PRN Administration Anxiety Artificial Tears 1 drop 09/26/20 15:33 Artificial Tears Op Soln 15 Ml Bottle EACH EYE QID PRN Dry Eye(s) Budesonide/Formoterol Fumarate 2 puff 09/29/20 20:00 Budesonide/Form 160-4.5 Mcg (*Sp) INHALAT
--- NOTE | 2020-09-29 14:16 | PM.DS ---
DS: Admitting Diagnosis Admitting Diagnosis Admitting Diagnosis: Having a fight with her daughter DS: Discharge Diagnosis Discharge Diagnosis (1) Acute exacerbation of chronic obstructive pulmonary disease: Code(s): J44.1 - Chronic obstructive pulmonary disease with (acute) exacerbation Status: Acute Assessment and Plan: Improved on breathing treatments and systemic steroids discharge on inhalers, oral steroid and 14 days of levaquin. Pt uses cpap at night, pt is on home oxygen at 2-3 liters (2) Acute on chronic respiratory failure with hypoxia and hypercapnia: Code(s): J96.21 - Acute and chronic respiratory failure with hypoxia; J96.22 - Acute and chronic respiratory failure with hypercapnia Status: Acute Assessment and Plan: Improved pt is ready of discharge Pulmonology reviewed pt day of discharge (3) Chronic pain syndrome: Code(s): G89.4 - Chronic pain syndrome Status: Chronic Assessment and Plan: Pain management. continue Gabapentin. (4) Conjunctivitis: Qualifiers: Conjunctivitis type: unspecified Laterality: left Qualified Code(s): H10.9 - Unspecified conjunctivitis Code(s): H10.9 - Unspecified conjunctivitis Status: Resolved Assessment and Plan: Artificial tears prn while in hospital. (5) Person under investigation for COVID-19: Code(s): Z20.828 - Contact with and (suspected) exposure to other viral communicable diseases Status: Acute Assessment and Plan: Ruled out (6) Anxiety: Code(s): F41.9 - Anxiety disorder, unspecified Status: Acute Assessment and Plan: Continue Xanax prn Venlafaxine Lamotrigine Phenytoin (7) Tobacco dependence: Code(s): F17.200 - Nicotine dependence, unspecified, uncomplicated Status: Chronic Assessment and Plan: Nicotine patch #14 giveb to patient on discharge (8) Chronic diastolic heart failure: Code(s): I50.32 - Chronic diastolic (congestive) heart failure Status: Chronic Assessment and Plan: To continue with Lasix + Lisinopril DS: Summary Hospital Course Hospital Course: Isabel is a 59 year old female who is well known to the hospitalist service with past medical history of chronic hypercapnic respiratory failure, diastolic congestive heart failure, obstructive sleep apnea, chronic pain syndrome, and continued tobacco abuse who presented to the ER after having gotten in a fight with her daughter. Covid ruled out , pt treated for COPD exacerbation. seen by building drafting officer in hospital , inhalers optimized. Pt discharged on nicotine patches oral steroids and Levaquin antibiotics. Time Spent with Patient Time attestation: Total time spent providing and/or coordinating discharge services: 40 minutes on day of discharge Exam Const: General: comfortable, no acute distress, alert, awake, Physically active, anxious, ill appearing and other (Chronically ill looking.) Nutritional Appearance: average body habitus Orientation/consciousness: patient oriented x3 Limitations: no limitations Cardio: Jugular venous distension: no JVD Rate: regular rate Rhythm: regular rhythm Skin: Wounds: no wounds Neuro: General: patient oriented x3 and CN's II-XI intact bilaterally Cranial nerves: Yes CN's II-XII intact bilaterally and Yes Equal, round and reactive pupils present Cognition (Neuro): normal cognition Speech: normal speech Gait exam (Neuro): Normal gait present Motor exam (neuro): 5/5 motor strength present throughout Extrem: General: no pedal edema DS: Data Data Completed and Pending Labs on day of discharge: Labs from last 24 hours 09/29/20 08:00 Puncture Site Left brachial ABG pH 7.337 L ABG pCO2 59.8 H ABG pO2 69.2 L ABG PO2/FiO2 Ratio 2.16 ABG HCO3 31.3 H ABG O2 Saturation 92.4 L ABG O2 Content 15.5 L ABG Base Excess 4.1 A-a Gradient 89.0 Oxyhemoglobin 91.5 Carboxyhemoglobin 0.3
== END 2020-09-29 15:55 | disposition home or self-care (01) | DRG 190 ==
LOC: ANHED 19:51 → ANHIMU 09-26 03:33 → ANH3MED 09-28 03:10 → ANHIMU 10-01 18:39
PROVIDERS: Internal Medicine Critical Care Medicine; Admitting Provider Internal Medicine; Emergency Provider Emergency Medicine; PCP Internal Medicine; Visit Provider Internal Medicine
DX: J44.1 Chronic obstructive pulmonary disease with (acute) exacerbation (principal); J96.21 Acute and chronic respiratory failure with hypoxia; J96.22 Acute and chronic respiratory failure with hypercapnia; I50.32 Chronic diastolic (congestive) heart failure; Z20.822 Contact with and (suspected) exposure to COVID-19; G89.4 Chronic pain syndrome; G47.33 Obstructive sleep apnea (adult) (pediatric); Z66 Do not resuscitate; M19.90 Unspecified osteoarthritis, unspecified site; I25.10 Atherosclerotic heart disease of native coronary artery without angina pectoris; F41.8 Other specified anxiety disorders; G62.9 Polyneuropathy, unspecified; E78.5 Hyperlipidemia, unspecified; F17.210 Nicotine dependence, cigarettes, uncomplicated; H10.32 Unspecified acute conjunctivitis, left eye; E87.5 Hyperkalemia; Z79.01 Long term (current) use of anticoagulants; Z86.718 Personal history of other venous thrombosis and embolism; Z91.14 Patient's other noncompliance with medication regimen
CPT/HCPCS: 36415; 36600; 70450; 71046; 80048; 80076; 81001; 82375; 82805; 83050; 85025; 85027; 87077; 87086; 87088; 87186; 93005; 94002; 94003; 94640; 96374; 97161; 97165; 99285; A9270; C9803; J0131; J1170; J1956; J2060; J2920; J2930; U0003; U0005

== ENCOUNTER 2020-10-10 15:00 | Inpatient (IN) | payer MEDICARE, MEDICAID, SELFPAY ==
[2020-10-10] VITALS (33 sets, daily range): BP systolic 139–172; BP diastolic 75–144; PULSE 89–123; RESP 17–25; TEMP 36.2–36.3; O2SAT 87–100; BMI 27.6
--- NOTE | ~2020-10-10 | CT_ITS ---
EXAMINATION: CT brain wo con DATE: 10/10/2020 20:03 INDICATION: Altered mental status TECHNIQUE: Computed tomography (CT) of the head was performed without intravenous contrast. The dose- length product was 605.33 mGy-cm. Automated exposure control and iterative reconstruction technique w ere employed. COMPARISON: CT dated 09/25/2020 FINDINGS: No acute intracranial hemorrhage, infarction, mass or mass effect. No ventriculomegaly or m idline shift. Basilar cisterns are patent. Paranasal sinuses and mastoids are pneumatized. There are scattered mild periventricular and subcortical white matter changes, most likely related to small ves manny ischemic disease (microangiopathy). IMPRESSION: 1. No acute intracranial abnormality. 2: Chronic age-related findings. Reviewed, dictated and finalized at location A. SAGE JUDGE
--- NOTE | ~2020-10-10 | MR_ITS ---
EXAMINATION: MR brain/brain stem wo/w con DATE: 10/12/2020 09:33 INDICATION: Seizure. Altered mental status. TECHNIQUE: Magnetic resonance imaging (MRI) of the brain and brainstem was performed without and with 15 mL MultiHance intravenous contrast. Sequences included sagittal and axial T1-weighted FSE, axial diffusion-weighted FS EPI, axial T2*-weighted GRE, axial T2-weighted FLAIR Propeller, and axial T2-we ighted Propeller. Postcontrast sequences included axial and coronal T1-weighted FSE. Apparent diffusi on coefficient (ADC) maps were created. COMPARISON: Head CT 10/10/2020 FINDINGS: There are scattered areas of nonspecific increased T2-weighted signal intensity in the cere bral white matter, which is within normal limits for the patient's age. There is increased T2-weighte d signal intensity in the ousmane. There is no intracranial hemorrhage, acute infarction, or abnormal in tracranial mass lesion. The ventricles are normal in size. There is old blowout fracture of medial wa ll of left orbit. The mastoid air cells are normal. IMPRESSION: 1. Increased T2-weighted signal intensity in the ousmane, which may be chronic small vessel ischemic dis ease or osmotic myelinolysis. Reviewed, dictated and finalized at location A. STANT STORE MANAGER IMPRESSION: 1. Increased T2-weighted signal intensity in the ousmane, which may be chronic sma ll vessel ischemic disease or osmotic myelinolysis.
--- NOTE | ~2020-10-10 | US_ITS ---
EXAMINATION: US venous doppler [facility] DATE: 10/12/2020 13:41 INDICATION: Shortness of breath TECHNIQUE: Zuniga scale images without and with compression and Doppler images of the bilateral lower e xtremity veins were obtained. COMPARISON: 10/18/2012 FINDINGS: The right common femoral vein, profunda femoral vein, femoral vein, popliteal vein, peroneal trunk, p osterior tibial veins, and greater saphenous vein are patent. The left common femoral vein, profunda femoral vein, femoral vein, popliteal vein, peroneal trunk, po sterior tibial veins, and greater saphenous vein are patent. IMPRESSION: 1. Patent bilateral lower extremity veins. No evidence of deep venous thrombosis. Reviewed, dictated and finalized at location A. PROCESS OPERATOR IMPRESSION: 1. Patent bilateral lower extremity veins. No evidence of deep venous thrombosi s.
--- NOTE | ~2020-10-10 | CT_ITS ---
EXAMINATION: CTA chest PE protocol DATE: 10/11/2020 18:47 RENTAL SALES ASSOCIATE INDICATION: Rule out pulmonary embolism. Dyspnea. TECHNIQUE: Computed tomographic angiography (CTA) of the chest was performed with 100 mL Omnipaque-35 0 intravenous contrast. The dose-length product was 383.71 mGy-cm. Maximum intensity projection 3D-re constructions of the aorta and other arteries were constructed by the technologist on a separate work station. Automated exposure control and iterative reconstruction technique were employed. COMPARISON: CT dated 10/18/2012 FINDINGS: The study is technically adequate without evidence for pulmonary embolism. Heart size jacobo l. No significant pleural or pericardial effusion. No thoracic lymphadenopathy. No evidence for aorti c aneurysm or dissection. There is atherosclerosis. The upper abdomen is unremarkable. There is emphy sema. Stable 3 mm pleural-based right lower lobe nodule, benign. There is left upper lobe scarring an teriorly which is unchanged. There is an old healed sternal fracture. Mild thoracic spondylosis. No a cute osseous abnormality. IMPRESSION: 1. No evidence for pulmonary embolism. No acute cardiopulmonary disease. 2: Emphysema. Reviewed, dictated and finalized at location A. AL SALES ASSOCIATE
--- NOTE | ~2020-10-10 | XR_ITS ---
XR chest 1V portable 10/10/2020 18:39 Indication: Transient alteration of awareness. History of asthma. Procedure: AP portable chest Comparison: 05/20/2020 Findings: No focal air space disease, pulmonary edema, pleural effusion or suspected pneumothorax. Th e lungs are hyperinflated which is consistent with, but not diagnostic of chronic obstructive pulmona ry disease. Heart size is normal. There is atherosclerosis. Impression: 1: No acute cardiopulmonary disease. Reviewed, dictated and finalized at location A. RING DISTRIBUTION CLERK Impression: 1: No acute cardiopulmonary disease.
--- NOTE | 2020-10-10 15:08 | ED.AMS ---
HPI - Altered Mental Status General Chief Complaint: Altered Mental Status Stated Complaint: ams x few days History of Present Illness HPI narrative: 59 yo female w/ h/o of severe COPD brought in by EMS from home for altered mental status. She has apparently been acting strange for the past few days. Unclear what ultimately cause family to call for EMS. In the past she has come in with similar symptoms and been found to have significant CO2 retention. She does report SOB at this time. She is on 4 liters of O2 at baseline, and is currently maintaining oxygen saturation at this time. History is limited by mental status. Related Data Home Medications Medication Instructions Recorded Confirmed Xarelto 20 mg PO DAILY 08/26/19 10/10/20 albuterol sulfate 2.5 mg INHALATION TID 08/26/19 10/10/20 venlafaxine [Effexor XR] 150 mg PO DAILY 08/26/19 10/10/20 lamotrigine 100 mg PO BID 04/19/20 10/10/20 furosemide 40 mg PO DAILY 07/14/20 10/10/20 lisinopril 20 mg PO DAILY 07/14/20 10/10/20 albuterol sulfate 2 puff INHALATION QID PRN 09/26/20 10/10/20 pantoprazole 40 mg PO DAILY 09/26/20 10/10/20 phenytoin sodium extended 100 mg PO TID 09/26/20 10/10/20 ferrous sulfate [iron] 325 mg PO DAILY 10/10/20 10/10/20 multivit with min-folic acid 1 tablet PO DAILY 10/10/20 10/10/20 [Adult One Daily Multivitamin] Allergies Allergy/AdvReac Type Severity Reaction Status Date / Time Penicillins Allergy Mild itching Verified 10/10/20 20:30 Review of Systems Review of Systems: ROS unobtainable: Yes unobtainable due to medical condition and unobtainable due to mental status [facility] Past Medical History Medical History (Updated 10/11/20 @ 17:20 by Michele Thacker MD) Arthritis Asthma Chronic diastolic heart failure Chronic hyponatremia Chronic pain syndrome Chronic respiratory failure with hypoxia and hypercapnia Coronary artery disease Poorly documented. Current use of snf anticoagulation Depression with anxiety Emphysema/COPD History of deep vein thrombosis On chronic anticoagulation with Xarelto. 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 Hyperlipidemia Hypertension Obstructive sleep apnea Not 100% compliant with CPAP. Peripheral neuropathy Pneumonia Seizures Tobacco dependence Surgical History Surgical History (Updated 10/10/20 @ 22:20 by Danii Feldman PA-C) History of section x2. Family History Family History Other Acute myocardial infarction Cerebrovascular accident Diabetes mellitus Hypertension Social History Social History (Updated 10/10/20 @ 22:24 by Danii Feldman PA-C) Social History: The patient is and lives with her daughter and her daughter's boyfriend in [place]. She is on disability. She smoked up to 2 to 3 packs of cigarettes a day for many years and continues to smoke perhaps a half a pack a day. She had problems with alcohol in the past and has attended AA meetings. Smokes marijuana weekly. Primary care physician: Dr. Sheldon Cantrell Code status: Full code. She had previously wish to be a modified code, do not intubate however was intubated during a stay in the fall. Durable power of safety analyst: Daughter Ebony Hall. 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 Gender identity (if verbalized by the patient): Female Spiritual care concerns: No Agree to blood products: No Exam Const: General: no acute distress, alert and ill appearing chronically Orientation/consciousness: patient oriented x3 Eyes: Pupils: Equal, round and reactive pupils present Neck: Neck:
[2020-10-10 15:47] LABS: Alveolar/Arterial O2 Gradient 57.6 mmHg; Base Excess ABG 9.2 mEq/l (+/-2.0); Fractional Inspired Oxygen 30 %; HCO3 ABG 36.6 mEq/l (22.0-26.0); Oxygen Content ABG 15.8 %vol (16.0-22.0); Oxygen Saturation ABG 95.2 % (95.0-100.0); Oxyhemoglobin 93.9 % THb (90.0-100.0); PO2 ABG 80.6 mmHg (80.0-100.0); PO2 FiO2 Ratio Arterial Blood 2.69 %; Total Hemoglobin 11.9 g/dL (12.0-18.0); pH ABG 7.372 (7.350-7.450)
[2020-10-10 15:48] LABS: Device NON-INVASIVE VENT; Modified Allen's Test Pass; PCO2 ABG 64.4 mmHg (35.0-45.0); Site Drawn RIGHT RADIAL
[2020-10-10 15:49] LABS: Non-Invasive Expiratory Pressure 8 CMH2O; Non-Invasive Inspiratory Pressure 16 CMH2O
[2020-10-10] MEDS: ALBUTEROL SULFATE NEB 2.5 MG/0.5 ML INH 10 MG INHALATION (15:50)
[2020-10-10] MEDS: IPRATROPIUM BR 0.02% INH SOLN 0.5 MG/2.5 ML VIAL 1 MG INHALATION (15:50)
[2020-10-10 16:11] LABS: Basophils Absolute Auto 0.1 K/mm3 (0.0-0.1); Basophils Percent Auto 0.7 % (0.2-1.2); Eosinophils Absolute Auto 0.2 K/mm3 (0-0.3); Hematocrit 37.2 % (37.0-47.0); Hemoglobin 11.4 g/dL (12.0-15.0); Immature Granulocyte Absolute 0.02 K/mm3 (0.00-0.031); Immature Granulocyte Percent A 0.2 % (0-0.5); Lymphocytes Percent Auto 21.3 % (18.3-44.2); Mean Corpuscular HGB Conc 30.6 g/dl (32-36); Mean Corpuscular Hemoglobin 27.5 pg (26-34); Mean Corpuscular Volume 89.9 fl (80-100); Mean Platelet Volume 9.7 fl (7.4-10.4); Monocytes Absolute Auto 0.8 K/mm3 (0.1-0.6); Monocytes Percent Auto 8.7 % (2.6-8.5); Neutrophils Absolute Auto 6.3 K/mm3 (1.3-6.7); Neutrophils Percent Auto 67.1 % (45.5-73.1); Platelet Count Result 318 k/mm3 (150-375); Red Blood Count 4.14 M/mm3 (4.2-5.4); Red Cell Distribution Width 12.7 % (11.5-14.5); White Blood Count 9.4 K/mm3 (4.5-10.0)
[2020-10-10 16:21] LABS: INR 0.9; Prothrombin Time 12.7 Seconds (11.1-14.7)
[2020-10-10 16:22] LABS: Partial Thromboplastin Time 27.2 SECONDS (22.3-36.8)
[2020-10-10 16:23] LABS: Alanine Aminotransferase 31 U/L (4-35); Alkaline Phosphatase 169 U/L (38-126); Aspartate Amino Transferase 40 U/L (14-36); Bilirubin,Total 0.4 mg/dL (0.2-1.3); Blood Urea Nitrogen 23 mg/dL (7-17); Calcium 9.7 mg/dL (8.4-10.2); Carbon Dioxide > 40 mmol/L (22-30); Chloride 90 mmol/L (98-107); Estimated CRCL calculation 82 ml/min; Estimated Glomerular Filt Rate > 60; Glucose 119 mg/dL (65-105); Potassium 4.7 mmol/L (3.4-5.0); Sodium 133 mmol/L (137-145)
[2020-10-10 17:24] LABS: Add Urine Microscopic? YES; Appearance Urine Clear (Clear); Bacteria Urine Trace /hpf; Bilirubin Urine Negative (Negative); Blood Urine Negative (Negative); Color Urine Yellow (Yellow); Glucose Urine UA Negative (Negative); Ketones Urine 1+ mg/dL (Negative); Leukocyte Esterase Ur Negative LEU/UL (Negative); Mucus Urine Rare /lpf; Nitrate Urine Negative (Negative); Protein Urine 1+ mg/dL (Negative); RBC Urine 0-2 /hpf (0-2); Specific Grav Ur 1.018 (1.001-1.035); Squamous Epithelial Cell Urine Rare /hpf (Few); Urobilinogen Urine Negative mg/dL (<2.0); WBC Urine 0-3 /hpf
[2020-10-10] MEDS: LORazepam INJ (*CRX) 2 MG/ML VIAL 1 MG IV PUSH (18:03)
--- NOTE | 2020-10-10 19:00 | PM.IMHP ---
H&P: [facility] History of Present Illness Date/Time: 10/10/20 19:00 Chief Complaint: Altered mental status. Narrative: This is a 59-year-old female smoker with COPD, chronic hypercarbic respiratory failure, anxiety, and history of delirium and psychosis exacerbated by steroid use who presented to the emergency department earlier today via EMS from home for evaluation of altered mental status. She is not able to provide me with any significant history and continuously repeats the phrase ?help me out? while trying to get out of the bed. Repeated phone calls to her daughters have gone on answered and on returned, and as such all of the following is obtained via a review of her electronic medical records. Apparently her daughter called 911 because she has been acting strange and it is noted she has been to the emergency department on multiple occasions with similar complaints. No other information is provided. Upon review of her chart, she has been admitted on several occasions to the hospitalist service with her most recent visit being from 09/25/2020 to 09/30/2020 with acute on chronic respiratory failure and COPD exacerbation. Review of Systems Review of Systems: Narrative: A review of systems is unable to be obtained given her altered mental status as detailed in the HPI. [facility] Past Medical History Medical History (Updated 10/10/20 @ 22:32 by Danii Feldman PA-C) Arthritis Asthma Chronic diastolic heart failure Chronic hyponatremia Chronic pain syndrome Chronic respiratory failure with hypoxia and hypercapnia Coronary artery disease Poorly documented. 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 Hyperlipidemia Hypertension Obstructive sleep apnea Not 100% compliant with CPAP. Peripheral neuropathy Pneumonia Seizures Tobacco dependence Surgical History Surgical History (Updated 10/10/20 @ 22:20 by Danii Feldman PA-C) History of section x2. Family History Family History Other Acute myocardial infarction Cerebrovascular accident Diabetes mellitus Hypertension Social History Social History (Updated 10/10/20 @ 22:24 by Danii Feldman PA-C) Social History: The patient is and lives with her daughter and her daughter's boyfriend in [place]. She is on disability. She smoked up to 2 to 3 packs of cigarettes a day for many years and continues to smoke perhaps a half a pack a day. She had problems with alcohol in the past and has attended AA meetings. Smokes marijuana weekly. Primary care physician: Dr. Sheldon Cantrell Code status: Full code. She had previously wish to be a modified code, do not intubate however was intubated during a stay in the fall of 2019. Durable power of assistant county attorney: Daughter Ebony Hall. 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 Gender identity (if verbalized by the patient): Female Spiritual care concerns: No Agree to blood products: No Meds Home Medications and Allergies Home Medications Medication Instructions Recorded Confirmed Type Xarelto 20 mg PO DAILY 08/26/19 09/26/20 History albuterol sulfate 2.5 mg INHALATION TID 08/26/19 09/26/20 History venlafaxine [Effexor XR] 150 mg PO DAILY 08/26/19 09/26/20 History lamotrigine 100 mg PO BID 04/19/20 09/26/20 History furosemide 40 mg PO DAILY 07/14/20 09/26/20 History lisinopril 20 mg PO DAILY 07/14/20 09/26/20 History alprazolam 0.5 mg PO TID PRN #20 tablet 07/16/20
[2020-10-10] MEDS: methylPREDNISolone SOD SUCC 125 MG VIAL 60 MG IV PUSH (19:23)
[2020-10-10] MEDS: SODIUM CHLORIDE 0.9% IV 500 ML 999 ML IV CONT (19:27)
[2020-10-10] MEDS: ALBUTEROL SULFATE NEB 2.5 MG/0.5 ML INH 5 MG INHALATION (20:14)
[2020-10-10] MEDS: IPRATROPIUM BR 0.02% INH SOLN 0.5 MG/2.5 ML VIAL INHALATION (20:14)
--- NOTE | 2020-10-10 20:27 | ADMGEN ---
This patient, Mary Alice Hall, was admitted to IMU Room 205-01 on 10/10/20 at 2009. Patient/family oriented to hospital policies and general routines including ID bracelet, bed and alarms, visiting hours, pain management, procedures, bathroom and other care routines, personal items, smoking policy, room service/diet, and visiting hours. Information on how to activate the Rapid Response Team has been discussed. Patient/Family are encouraged to report perceived risks to care and to ask questions if they do not understand what they are told or what they should do.
[2020-10-10] MEDS: LACTATED RINGERS 1,000 ML 75 ML IV CONT (20:42)
--- NOTE | 2020-10-10 21:16 | PC.NURSE ---
Messages left for both daughters for admission information due to patients altered mental status. Waiting for return call.
[2020-10-10 22:03] LABS: Alveolar/Arterial O2 Gradient 79.1 mmHg; Base Excess ABG 10.7 mEq/l (+/-2.0); Carboxyhemoglobin 0.8 % THb (0-2.0); Fractional Inspired Oxygen 30 %; HCO3 ABG 36.3 mEq/l (22.0-26.0); Methemoglobin ABG 0.1 %THb (0-1.5); Modified Allen's Test Unable to perform; Oxygen Content ABG 15.4 %vol (16.0-22.0); Oxyhemoglobin 94.1 % THb (90.0-100.0); PCO2 ABG 52.9 mmHg (35.0-45.0); PO2 ABG 72.6 mmHg (80.0-100.0); PO2 FiO2 Ratio Arterial Blood 2.42 %; Site Drawn LEFT RADIAL; Total Hemoglobin 11.6 g/dL (12.0-18.0); pH ABG 7.454 (7.350-7.450)
[2020-10-10 22:04] LABS: Device NON-INVASIVE VENT; Non-Invasive Expiratory Pressure 8 CMH2O; Non-Invasive Inspiratory Pressure 16 CMH2O; Non-Invasive Vent Rate 4 /MIN
[2020-10-10] MEDS: lamoTRIgine 100 MG TABLET PO (23:53)
[2020-10-10] MEDS: GABAPENTIN 300 MG CAPSULE PO (23:53)
[2020-10-10] MEDS: PHENYTOIN SODIUM 100 MG CAP PO (23:54)
[2020-10-11] VITALS (28 sets, daily range): BP systolic 107–163; BP diastolic 53–77; PULSE 82–116; RESP 18–24; TEMP 36–36.7; O2SAT 92–99
[2020-10-11 00:34] LABS: Ammonia 14 umol/L (9-30)
[2020-10-11 01:38] LABS: Thyroid Stimulating Hormone Reflex 0.813 uIU/mL (0.465-4.68)
[2020-10-11] MEDS: IPRATROPIUM BR 0.02% INH SOLN 0.5 MG/2.5 ML VIAL INHALATION ×4 (01:51→21:25)
[2020-10-11] MEDS: ALBUTEROL SULFATE NEB 2.5 MG/0.5 ML INH 5 MG INHALATION ×4 (01:51→21:25)
[2020-10-11 04:48] LABS: Hematocrit 33.2 % (37.0-47.0); Hemoglobin 10.2 g/dL (12.0-15.0); Mean Corpuscular HGB Conc 30.7 g/dl (32-36); Mean Corpuscular Hemoglobin 27.3 pg (26-34); Mean Corpuscular Volume 88.8 fl (80-100); Mean Platelet Volume 9.8 fl (7.4-10.4); Platelet Count Result 309 k/mm3 (150-375); Red Blood Count 3.74 M/mm3 (4.2-5.4); Red Cell Distribution Width 12.9 % (11.5-14.5); White Blood Count 7.1 K/mm3 (4.5-10.0)
[2020-10-11 05:27] LABS: Alanine Aminotransferase 28 U/L (4-35); Albumin Level 3.7 g/dL (3.5-5.1); Alkaline Phosphatase 151 U/L (38-126); Aspartate Amino Transferase 37 U/L (14-36); Bilirubin,Total 0.3 mg/dL (0.2-1.3); Blood Urea Nitrogen 23 mg/dL (7-17); Carbon Dioxide > 40 mmol/L (22-30); Chloride 92 mmol/L (98-107); Estimated CRCL calculation 72 ml/min; Estimated Glomerular Filt Rate > 60; Glucose 109 mg/dL (65-105); Magnesium 1.6 mg/dL (1.6-2.3); Potassium 4.2 mmol/L (3.4-5.0); Sodium 134 mmol/L (137-145)
[2020-10-11] MEDS: PHENYTOIN SODIUM 100 MG CAP PO ×3 (09:23→17:06)
[2020-10-11] MEDS: lamoTRIgine 100 MG TABLET PO ×2 (09:24→17:05)
[2020-10-11] MEDS: GABAPENTIN 300 MG CAPSULE PO ×3 (09:24→17:05)
[2020-10-11] MEDS: THERAPEUTIC MULTIVITAMINS/MINERALS TAB (*BKC) 1 TABLET PO (09:24)
[2020-10-11] MEDS: FERROUS SULFATE 324 MG TABLET PO (09:25)
[2020-10-11] MEDS: predniSONE 20 MG TABLET 40 MG PO (09:25)
[2020-10-11] MEDS: VENLAFAXINE HCL XR 75 MG CAP.ER.24H 150 MG PO (09:25)
[2020-10-11] MEDS: lisinopriL 20 MG TABLET PO (09:26)
[2020-10-11] MEDS: PANTOPRAZOLE 40 MG TABLET PO (09:26)
[2020-10-11 09:29] LABS: D Dimer 0.35 ug/mL (<0.48)
[2020-10-11 09:44] LABS: NT Pro B Type Natriuretic Pept 340 PG/ML (5-100)
--- NOTE | 2020-10-11 10:51 | PM.CNPUL ---
Assessment and Plan Assessment and plan (1) Tobacco dependence: Code(s): F17.200 - Nicotine dependence, unspecified, uncomplicated Status: Chronic Assessment and Plan: Patient continues to smoke 6 cigarettes per day. It should be noted that on prior admissions she and family were told that she will continue to have respiratory illnesses as long as she continues to smoke. I will readdress this with the family once I can reach them. I have attempted to call the family twice with no response. She has been given nicotine patches in the past. (2) Acute on chronic respiratory failure with hypoxia and hypercapnia: Code(s): J96.21 - Acute and chronic respiratory failure with hypoxia; J96.22 - Acute and chronic respiratory failure with hypercapnia Status: Acute Assessment and Plan: Patient with 6 admissions in the last 6 months for acute on chronic hypercarbic and hypoxemic respiratory failure. Patient's most recent blood gas on discharge from 09/29/2020 on 3 L was 7.34/60/69. This admission patient was placed on BiPAP 16/8 30% and her repeat blood gas was 7.45/53/73. The setting seem appropriate for now and will continue the settings with sleep. Will need to determine patient's DME company and get a recent download and her most recent home settings. Will need to check compliance from the most recent download. I will talk to the family and see if they can bring her home machine in for use in the hospital. (3) Obstructive sleep apnea: Code(s): G47.33 - Obstructive sleep apnea (adult) (pediatric) Status: Acute Assessment and Plan: The chart lists that the patient has obstructive sleep apnea. I have no sleep study in the laboratory in our laboratory currently will talk to the family regarding this diagnosis none the less patient will need to be continued on noninvasive ventilation at night for her severe COPD with hypoxemic and hypercarbic respiratory failure. (4) Emphysema/COPD: Code(s): J43.9 - Emphysema, unspecified Status: Acute Assessment and Plan: Patient with tobacco use and COPD per the chart. I have no PFTs. I will obtain a CT scan of the chest to assess for emphysematous changes. Currently the patient has no wheezing. There is no evidence of any pneumonia on the chest x-ray. Will continue albuterol 5 mg nebulized q.6, ipratropium 0.5 mg Q 6 prednisone 40 and change her Symbicort to inhaled budesonide 0.5 q.12 hours. Given patient's 6 hospitalizations in the last 6 months I will add azithromycin 500 mg p.o. 3 times a week. Patient will be given supplemental oxygen to maintain saturations 90-94%. 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 q.day. There are no lower extremity or upper extremity Dopplers in our records. Will discuss this diagnosis with the family once they can be reached. I will obtain a CT angiogram of the chest to assess for chronic thromboembolic disease. Will follow with you. History of Present Illness History of Present Illness Consult date: 10/11/20 Requesting physician: Paco Guillen MD Reason for consult: COPD Chief complaint: Acute on chronic respiratory failurew/ hypercapnea Narrative: New patient consult for COPD with hypercarbic respiratory failure. Patient is a 59-year-old woman with a history of COPD, hypoxemic respiratory failure requiring 3 L oxygen at home, hypercarbic respiratory failure With a home noninvasive ventilator, dementia, seizures, DVTs on Xarelto. Patient has had 6 admissions since 04/19/2020 for COPD exacerbations with acute on chronic hypercarbic respiratory failure. Patient was intubated from 05/14/20002019. Patient was last admitted on 09/26/2019 1-02/21/2021 she was discharged on 3 L nasal cannula with a blood gas of
[2020-10-11] MEDS: AZITHROMYCIN 250 MG TABLET 500 MG PO (12:06)
[2020-10-11 12:53] LABS: Barbiturate Screen Urine Negative (Negative)
[2020-10-11 12:54] LABS: Amphetamine Screen Urine Negative (Negative); Cannabinoid Screen Urine Negative (Negative); Cocaine Screen Urine Negative (Negative); Methadone Screen Urine Negative (Negative); Opiate Screen Urine Negative (Negative); Phencyclidine Screen Urine Negative (Negative)
[2020-10-11 12:56] LABS: Benzodiazepines Screen Urine Positive (Negative)
--- NOTE | 2020-10-11 15:23 | PM.IMPN ---
Progress Note: A&P Assessment and Plan (1) Confusion: Code(s): R41.0 - Disorientation, unspecified Status: Acute Assessment and Plan: The patient has been to the hospital many times with the same complaint. She may be having unrecognized seizures. She is hypercapnic car via on admission but her pH was normal. CT of the brain was unremarkable. Suspect she has underlying dementia. B12 and TSH level normal. Does smoke marijuana so we checked a urine drug screen that is positive for benzos. She does have a history of delirium and psychosis that was attributed to systemic steroids. Patient is more alert but confused. Consider MRI brain. Family has been called by coverage analyst and the staff and messages left. Will discuss with family when they are available. (2) Chronic respiratory failure with hypoxia and hypercapnia: Code(s): J96.11 - Chronic respiratory failure with hypoxia; J96.12 - Chronic respiratory failure with hypercapnia Status: Acute Assessment and Plan: Patient has chronic hypoxia and hypercarbia. She wears 3 L oxygen at home. She has noninvasive ventilator at home but unclear how often she uses this. ABG on admission showed normal pH and pO2 but P CO2 was 64. She was started on BiPAP in this improved her pCO2 to 53. She may have times when she does not wear the BiPAP at home resulting in a mild elevation of her pCO2 but made worse because of her underlying dementia. Marijuana use may be contributing her problems as well. She continues to smoke which is also detrimental to her health. Continue albuterol and Atrovent nebs. Prednisone has been started. Continue Pulmicort Respules started by the coverage analyst today. (3) Anxiety: Code(s): F41.9 - Anxiety disorder, unspecified Status: Acute Assessment and Plan: Could be contributing to her underlying symptoms. She also has alprazolam at home which could cause mental status changes if she was abusing this (same for her narcotics but UDS negative for opioids - did she run out and seize from w/d?). Continue Effexor. Continue to monitor. (4) Chronic hyponatremia: Code(s): E87.1 - Hypo-osmolality and hyponatremia Status: Acute Assessment and Plan: Sodium is 133. Repeat today is 134. Continue to monitor periodically. (5) Emphysema/COPD: Code(s): J43.9 - Emphysema, unspecified Status: Acute Assessment and Plan: As above. This is part of the etiology of her chronic respiratory failure. Chest CT ordered. Follow-up with the results. Treatment as above. (6) Hypertension: Code(s): I10 - Essential (primary) hypertension Status: Inactive Assessment and Plan: Patient's blood pressure was reviewed on 10/11 Blood pressure elevated on admission but has improved. Lisinopril has been resumed. Will continue current medications. (7) Tobacco dependence: Code(s): F17.200 - Nicotine dependence, unspecified, uncomplicated Status: Chronic Assessment and Plan: She has been educated about the benefits of smoking cessation.. (8) Chronic diastolic heart failure: Code(s): I50.32 - Chronic diastolic (congestive) heart failure Status: Chronic Assessment and Plan: Echo cardiogram performed in July 2020 showing EF of 60-65% and moderate pulmonary hypertension with a PASP 47 mm Hg. She also has grade 1 diastolic dysfunction and normal right ventricular dimension and function. No significant valvular disease. Chest x-ray is clear. BNP was 340. She is on Lasix at home. She may be over diuresed resulting in the elevated serum bicarb level which could itself contribute to some of her respiratory issues. Lasix on hold. (9) Seizures: Code(s): R56.9 - Unspecified convulsions Status: Acute Assessment and Plan: Patient has underlying seizure disorder. Continue antiseizure medications. Continue s
[2020-10-11] MEDS: RIVAROXABAN 20 MG TABLET PO (17:06)
[2020-10-11] MEDS: BUDESONIDE RESPULE NEB 0.5 MG/2 ML AMP INHALATION (21:26)
[2020-10-12] VITALS (15 sets, daily range): BP systolic 123–152; BP diastolic 58–83; PULSE 65–92; RESP 18–22; TEMP 36.1–36.4; O2SAT 94–99
[2020-10-12] MEDS: ALBUTEROL SULFATE NEB 2.5 MG/0.5 ML INH 5 MG INHALATION ×2 (03:20→09:40)
[2020-10-12] MEDS: IPRATROPIUM BR 0.02% INH SOLN 0.5 MG/2.5 ML VIAL INHALATION ×4 (03:20→20:29)
[2020-10-12 06:27] LABS: Hematocrit 30.2 % (37.0-47.0); Hemoglobin 9.5 g/dL (12.0-15.0); Mean Corpuscular HGB Conc 31.5 g/dl (32-36); Mean Corpuscular Hemoglobin 27.2 pg (26-34); Mean Corpuscular Volume 86.5 fl (80-100); Mean Platelet Volume 9.7 fl (7.4-10.4); Platelet Count Result 279 k/mm3 (150-375); Red Blood Count 3.49 M/mm3 (4.2-5.4); Red Cell Distribution Width 13.2 % (11.5-14.5); White Blood Count 7.7 K/mm3 (4.5-10.0)
[2020-10-12 06:46] LABS: Anion Gap 0 mmol/L (8-16); Blood Urea Nitrogen 18 mg/dL (7-17); Calcium 8.6 mg/dL (8.4-10.2); Carbon Dioxide 37 mmol/L (22-30); Chloride 89 mmol/L (98-107); Estimated CRCL calculation 72 ml/min; Estimated Glomerular Filt Rate > 60; Glucose 107 mg/dL (65-105); Magnesium 1.7 mg/dL (1.6-2.3); Potassium 3.7 mmol/L (3.4-5.0); Sodium 126 mmol/L (137-145)
[2020-10-12] MEDS: GABAPENTIN 300 MG CAPSULE PO ×3 (08:26→17:27)
[2020-10-12] MEDS: VENLAFAXINE HCL XR 75 MG CAP.ER.24H 150 MG PO (08:26)
[2020-10-12] MEDS: FERROUS SULFATE 324 MG TABLET PO (08:26)
[2020-10-12] MEDS: lamoTRIgine 100 MG TABLET PO ×2 (08:26→17:27)
[2020-10-12] MEDS: predniSONE 20 MG TABLET 40 MG PO (08:26)
[2020-10-12] MEDS: PANTOPRAZOLE 40 MG TABLET PO (08:27)
[2020-10-12] MEDS: THERAPEUTIC MULTIVITAMINS/MINERALS TAB (*BKC) 1 TABLET PO (08:28)
[2020-10-12] MEDS: PHENYTOIN SODIUM 100 MG CAP PO ×3 (08:28→17:27)
[2020-10-12] MEDS: lisinopriL 20 MG TABLET PO (08:29)
[2020-10-12] MEDS: BUDESONIDE RESPULE NEB 0.5 MG/2 ML AMP INHALATION ×2 (09:41→20:29)
--- NOTE | 2020-10-12 10:45 | PM.PNPUL ---
Progress Note: A&P Assessment and Plan (1) Tobacco dependence: Code(s): F17.200 - Nicotine dependence, unspecified, uncomplicated Status: Chronic Assessment and Plan: Patient continues to smoke 6 cigarettes per day. It should be noted that on prior admissions she and family were told that she will continue to have respiratory illnesses as long as she continues to smoke. I will readdress this with the family once I can reach them. I have attempted to call the family twice with no response. She has been given nicotine patches in the past. 10/12 called family twice and left message to call back. (2) Acute on chronic respiratory failure with hypoxia and hypercapnia: Code(s): J96.21 - Acute and chronic respiratory failure with hypoxia; J96.22 - Acute and chronic respiratory failure with hypercapnia Status: Acute Assessment and Plan: 10/11 Patient with 6 admissions in the last 6 months for acute on chronic hypercarbic and hypoxemic respiratory failure. Patient's most recent blood gas on discharge from 09/29/2020 on 3 L was 7.34/60/69. This admission patient was placed on BiPAP 16/8 30% and her repeat blood gas was 7.45/53/73. The setting seem appropriate for now and will continue the settings with sleep. Will need to determine patient's DME company and get a recent download and her most recent home settings. Will need to check compliance from the most recent download. I will talk to the family and see if they can bring her home machine in for use in the hospital. 10/12 Waiting to hear from our RT division regarding who her DME is to obtain recent download. (3) Obstructive sleep apnea: Code(s): G47.33 - Obstructive sleep apnea (adult) (pediatric) Status: Acute Assessment and Plan: 10/11 The chart lists that the patient has obstructive sleep apnea. I have no sleep study in the laboratory in our laboratory currently will talk to the family regarding this diagnosis none the less patient will need to be continued on noninvasive ventilation at night for her severe COPD with hypoxemic and hypercarbic respiratory failure. (4) Emphysema/COPD: Code(s): J43.9 - Emphysema, unspecified Status: Acute Assessment and Plan: Patient on home oxytgen 3 L, home CPAP or noninvasive ventilation and pulmoanry hypertension of 47 by echo on 06/23/2020. 6th admission since 04/19/2020. 2/7 Patient with tobacco use and COPD per the chart. I have no PFTs. CT angiogram on 10/11/20 negative for PE, pneumonia, pulmonary edema. She has moderate centrilobular emphysema which has progressed from CT on 10/18/2012. Currently the patient has no wheezing. There is no evidence of any pneumonia on the chest x-ray. Will continue albuterol 5 mg nebulized q.6, ipratropium 0.5 mg Q 6 prednisone 40 and change her Symbicort to inhaled budesonide 0.5 q.12 hours. Given patient's 6 hospitalizations in the last 6 months I will add azithromycin 500 mg p.o. 3 times a week. 10/12 Patient wore hospital BiPAP rate 4, /, 30% with saturations 98% from 22:25 to 05:00 and is now on 3 L NC with sats 98%. No wheezes. States she is breathing at her baseline today. No wheezes. Continue nebulizers and prednisone 40 for total 5 days. Patient will be given supplemental oxygen to maintain saturations 90-94%. 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 There are no lower extremity or upper extremity Dopplers in our records. Will discuss this diagnosis with the family once they can be reached. CT angiogram of the chest negative for acute or chronic PE. 10/12 I will check lower extremity Dopplers to assess for DVT. Will follow with you. Subjective Date/time seen: 10/12/20 10:45 Interval history: 10/11 Chief complaint: Acute on chronic respiratory failurew/ hyper
[2020-10-12] MEDS: ALBUTEROL SULFATE NEB 2.5 MG/0.5 ML INH INHALATION ×2 (14:06→20:29)
[2020-10-12 16:52] LABS: Sodium 130 mmol/L (137-145)
[2020-10-12] MEDS: RIVAROXABAN 20 MG TABLET PO (17:28)
[2020-10-12] MEDS: ACETAMINOPHEN 325 MG TABLET 650 MG PO ×2 (17:29→23:31)
--- NOTE | 2020-10-12 18:01 | PM.IMPN ---
Progress Note: A&P Assessment and Plan (1) Confusion: Code(s): R41.0 - Disorientation, unspecified Status: Acute Assessment and Plan: The patient has been to the hospital many times with the same complaint. She may be having unrecognized seizures. She is hypercapnic on admission but her pH was normal. CT of the brain was unremarkable. Suspect she has underlying dementia. B12 and TSH level normal. Does smoke marijuana so we checked a urine drug screen that is positive for benzos. She does have a history of delirium and psychosis that was attributed to systemic steroids. Patient is more alert but confused. Brain MRI showing increased signal intensity in the ousmane either chronic small vessel ischemic disease or osmotic myelinolysis. Family made aware of the need for family to dispense the patient's medications. (2) Chronic respiratory failure with hypoxia and hypercapnia: Code(s): J96.11 - Chronic respiratory failure with hypoxia; J96.12 - Chronic respiratory failure with hypercapnia Status: Acute Assessment and Plan: Patient has chronic hypoxia and hypercarbia. She wears 3 L oxygen at home. She has noninvasive ventilator at home but unclear how often she uses this. ABG on admission showed normal pH and pO2 but pCO2 was 64. She was started on BiPAP and this improved her pCO2 to 53. She may have times when she does not wear the BiPAP at home resulting in a mild elevation of her pCO2 but made worse because of her underlying dementia. Marijuana use may be contributing her problems as well. She continues to smoke tobacco which is also detrimental to her health. No chronic PE or DVT by imaging. Continue albuterol and Atrovent nebs. Continue Prednisone 40mg daily x 5 days. Continue Pulmicort Respules. Discussed with blacking wheel tender today. He would like the family to bring in the trilogy and see how she does with her home unit. Home tomorrow if she remains stable. Will need to contact her trilogy provider to see if we can get her a new mask that fits better. (3) Anxiety: Code(s): F41.9 - Anxiety disorder, unspecified Status: Acute Assessment and Plan: Could be contributing to her underlying symptoms. She also has alprazolam at home which could cause mental status changes if she was abusing this (same for her narcotics but UDS negative for opioids - did she run out and seize from w/d?). Continue Effexor. Continue to monitor. Resume alprazolam and monitor. Continue to hold narcotics for now. (4) Chronic hyponatremia: Code(s): E87.1 - Hypo-osmolality and hyponatremia Status: Acute Assessment and Plan: Sodium 133 on admission. Repeat yesterday was 134 but dropped to 126 for unclear reason. Lab error? This was repeated and Na better at 130. Continue to monitor periodically. (5) Emphysema/COPD: Code(s): J43.9 - Emphysema, unspecified Status: Acute Assessment and Plan: As above. This is part of the etiology of her chronic respiratory failure. Chest CT showing emphysema but no PE or acute process. Continue Prednisone 40mg daily x 5 days total. Treatment as above. Discussed with blacking wheel tender. (6) Hypertension: Code(s): I10 - Essential (primary) hypertension Status: Inactive Assessment and Plan: Patient's blood pressure was reviewed on 10/12 Blood pressure elevated on admission but has improved. Lisinopril has been resumed. Will continue to monitor. (7) Tobacco dependence: Code(s): F17.200 - Nicotine dependence, unspecified, uncomplicated Status: Chronic Assessment and Plan: She has been educated about the benefits of smoking cessation. Okay for nicotine patch. (8) Chronic diastolic heart failure: Code(s): I50.32 - Chronic diastolic (congestive) heart failure Status: Chronic Assessment and Plan: Echocardiogram performed in July 2020 showing EF of 60-
[2020-10-12] MEDS: ALPRAZolam (*CRX) 0.5 MG TABLET PO (19:51)
--- NOTE | 2020-10-12 19:53 | PC.NURSE ---
1910-Room obtained on med- report given to Sandro HOBBS @ 1655- pt moved to room 246 via bed accompanied by staff-belongings with pt Daughter Ebony called and notified of transfer and reminded daughter to bring in home rajan richmond for testing- DA acknowledged understanding
[2020-10-13] VITALS (12 sets, daily range): BP systolic 120–140; BP diastolic 56–72; PULSE 80–94; RESP 16–21; TEMP 36.3–36.5; O2SAT 94–99
[2020-10-13] MEDS: IPRATROPIUM BR 0.02% INH SOLN 0.5 MG/2.5 ML VIAL INHALATION ×4 (02:08→20:36)
[2020-10-13] MEDS: ALBUTEROL SULFATE NEB 2.5 MG/0.5 ML INH INHALATION ×4 (02:08→20:36)
[2020-10-13] MEDS: ACETAMINOPHEN 325 MG TABLET 650 MG PO ×3 (05:11→18:37)
[2020-10-13 06:02] LABS: Anion Gap 2 mmol/L (8-16); Blood Urea Nitrogen 18 mg/dL (7-17); Calcium 8.4 mg/dL (8.4-10.2); Carbon Dioxide 35 mmol/L (22-30); Chloride 93 mmol/L (98-107); Estimated CRCL calculation 63 ml/min; Estimated Glomerular Filt Rate > 60; Glucose 104 mg/dL (65-105); Potassium 4.2 mmol/L (3.4-5.0); Sodium 130 mmol/L (137-145)
--- NOTE | 2020-10-13 06:12 | PCRCNOTE ---
Patient refused apnea link ordered 09/11/20
[2020-10-13 08:07] LABS: Glucose Point of Care 98 (65-105)
[2020-10-13] MEDS: FERROUS SULFATE 324 MG TABLET PO (09:06)
[2020-10-13] MEDS: predniSONE 20 MG TABLET 40 MG PO (09:06)
[2020-10-13] MEDS: VENLAFAXINE HCL XR 75 MG CAP.ER.24H 150 MG PO (09:07)
[2020-10-13] MEDS: GABAPENTIN 300 MG CAPSULE PO ×3 (09:07→16:28)
[2020-10-13] MEDS: NICOTINE (*PBKC) 14 MG PATCH 1 PATCH TRANSDERM (09:08)
[2020-10-13] MEDS: lamoTRIgine 100 MG TABLET PO ×2 (09:08→16:27)
[2020-10-13] MEDS: lisinopriL 20 MG TABLET PO (09:08)
[2020-10-13] MEDS: THERAPEUTIC MULTIVITAMINS/MINERALS TAB (*BKC) 1 TABLET PO (09:08)
[2020-10-13] MEDS: PANTOPRAZOLE 40 MG TABLET PO (09:09)
[2020-10-13] MEDS: PHENYTOIN SODIUM 100 MG CAP PO ×3 (09:09→16:27)
[2020-10-13] MEDS: ALPRAZolam (*CRX) 0.5 MG TABLET PO ×3 (09:12→20:08)
[2020-10-13] MEDS: BUDESONIDE RESPULE NEB 0.5 MG/2 ML AMP INHALATION ×2 (09:50→20:36)
--- NOTE | 2020-10-13 10:33 | PM.IMPN ---
Progress Note: A&P Assessment and Plan (1) Confusion: Code(s): R41.0 - Disorientation, unspecified Status: Acute Assessment and Plan: Patient had recurrent admission to the hospital most likely altered mental status related to COPD noncompliance probable history of smoking and marijuana abuse CO2 narcosis MRI of the brain shows small area in the ousmane that could be small vessel disease for versus myelinolysis follow-up with neurology as outpatient no significant neurological finding on exam (2) Chronic respiratory failure with hypoxia and hypercapnia: Code(s): J96.11 - Chronic respiratory failure with hypoxia; J96.12 - Chronic respiratory failure with hypercapnia Status: Acute Assessment and Plan: Compensated respiratory failure pending patient to bring her CPAP machine for evaluation. (3) Anxiety: Code(s): F41.9 - Anxiety disorder, unspecified Status: Acute Assessment and Plan: Could be contributing to her underlying symptoms. She also has alprazolam at home which could cause mental status changes if she was abusing this (same for her narcotics but UDS negative for opioids - did she run out and seize from w/d?). Continue Effexor. Continue to monitor. (4) Chronic hyponatremia: Code(s): E87.1 - Hypo-osmolality and hyponatremia Status: Acute Assessment and Plan: Mild hyponatremia most likely related to COPD monitor. (5) Emphysema/COPD: Code(s): J43.9 - Emphysema, unspecified Status: Acute Assessment and Plan: As above. This is part of the etiology of her chronic respiratory failure. Chest CT reviewed showed emphysema significant finding (6) Hypertension: Code(s): I10 - Essential (primary) hypertension Status: Inactive Assessment and Plan: Continue home medication. (7) Tobacco dependence: Code(s): F17.200 - Nicotine dependence, unspecified, uncomplicated Status: Chronic Assessment and Plan: Counseling. (8) Chronic diastolic heart failure: Code(s): I50.32 - Chronic diastolic (congestive) heart failure Status: Chronic Assessment and Plan: Stable avoid fluid overload Lasix on hold. (9) Seizures: Code(s): R56.9 - Unspecified convulsions Status: Acute Assessment and Plan: Patient has underlying seizure disorder. Continue antiseizure medications. Continue seizure precautions. MRI of the brain as above. (10) Obstructive sleep apnea: Code(s): G47.33 - Obstructive sleep apnea (adult) (pediatric) Status: Acute Assessment and Plan: As above. Appreciate Pulmonary input. (11) Current use of [facility] anticoagulation: Code(s): Z79.01 - shelter (current) use of anticoagulants Status: Acute Assessment and Plan: Patient has a history of DVT and possibly PE. On Xarelto at home which has been continued. Additional Plan Avoid narcotic and benzo as much as possible. Subjective Date/time seen: 10/13/20 10:33 Interval history: Patient seen and examined Patient was admitted to the hospital with altered mental status COPD Patient feels today she was asked to bring her machine at hospital so it get tested and it used during hospitalization to make sure the machine is working very well and the setting is accurate Patient denies fever headache chest I am seeing the patient for Exam Narrative: Exam Narrative: Alert Chest decreased air entry bilateral Abdomen nontender nondistended CVS S1 + S2 Lower extremity edema Objective Data Vital Signs Vital Signs: Vital Signs - 24 hr 10/12/20 14:08 10/12/20 14:17 10/12/20 16:43 Temperature 97.2 F L Pulse Rate 92 65 88 Respiratory Rate 20 20 20 Blood Pressure 123/58 L Pulse Oximetry 99 10/12/20 20:00 10/12/20 20:30 10/12/20 20:35 Temperature Pulse Rate 86 86 Respiratory Rate 20 Blood Pressure
[2020-10-13 11:24] LABS: Glucose Point of Care 143 (65-105)
--- NOTE | 2020-10-13 12:10 | PM.PNPUL ---
Progress Note: A&P Assessment and Plan (1) Tobacco dependence: Code(s): F17.200 - Nicotine dependence, unspecified, uncomplicated Status: Chronic Assessment and Plan: Patient continues to smoke 6 cigarettes per day. It should be noted that on prior admissions she and family were told that she will continue to have respiratory illnesses as long as she continues to smoke. I will readdress this with the family once I can reach them. I have attempted to call the family twice with no response. She has been given nicotine patches in the past. 10/12 called family twice and left message to call back. I told family that they need to withdrawal all tobacco pfrom patient. (2) Acute on chronic respiratory failure with hypoxia and hypercapnia: Code(s): J96.21 - Acute and chronic respiratory failure with hypoxia; J96.22 - Acute and chronic respiratory failure with hypercapnia Status: Acute Assessment and Plan: 10/11 Patient with 6 admissions in the last 6 months for acute on chronic hypercarbic and hypoxemic respiratory failure. Patient's most recent blood gas on discharge from 09/29/2020 on 3 L was 7.34/60/69. This admission patient was placed on BiPAP 16/8 30% and her repeat blood gas was 7.45/53/73. The setting seem appropriate for now and will continue the settings with sleep. Will need to determine patient's DME company and get a recent download and her most recent home settings. Will need to check compliance from the most recent download. I will talk to the family and see if they can bring her home machine in for use in the hospital. 10/12 Waiting to hear from our RT division regarding who her DME is to obtain recent download. 10/13 Patient's family did bring in her home trilogy machine her settings are RR 12, tidal volume 325, EPAP Min 4, EPAP max 10 PS min for PS max 25 with 3 L bleed in. On examination of the machine I notice that the oxygen bleed in adapter was broken and I called Angela from [facility] and it appears the patient could not have been given 3 L bleed in at home. Angela came to the hospital later today and repaired bleed in adapter, give the patient new mask, and patient tolerated increase in TV to only 350. Download from 08/18 use only 4 days and average time used on these 4 days 1.2 hours. Current settings: RR 12, tidal volume 350, EPAP Min 4, EPAP max 10 PS min for PS max 25 with 3 L bleed in. Will check Apnea ling on home machine and 3 L bleed in and ABG prior to removal of machine in morning. (3) Obstructive sleep apnea: Code(s): G47.33 - Obstructive sleep apnea (adult) (pediatric) Status: Acute Assessment and Plan: 10/11 The chart lists that the patient has obstructive sleep apnea. I have no sleep study in the laboratory in our laboratory currently will talk to the family regarding this diagnosis none the less patient will need to be continued on noninvasive ventilation at night for her severe COPD with hypoxemic and hypercarbic respiratory failure. 10/13 Use home machine tonight. (4) Emphysema/COPD: Code(s): J43.9 - Emphysema, unspecified Status: Acute Assessment and Plan: Patient on home oxytgen 3 L, home CPAP or noninvasive ventilation and pulmoanry hypertension of 47 by echo on 06/23/2020. 6th admission since 04/19/2020. 10/11 Patient with tobacco use and COPD per the chart. I have no PFTs. CT angiogram on 10/11/20 negative for PE, pneumonia, pulmonary edema. She has moderate centrilobular emphysema which has progressed from CT on 10/18/2012. Currently the patient has no wheezing. There is no evidence of any pneumonia on the chest x-ray. Will continue albuterol 5 mg nebulized q.6, ipratropium 0.5 mg Q 6 prednisone 40 and change her Symbicort to inhaled budesonide 0.5 q.12 hours. Given patient's 6 hospitalizations in the last 6 months I will add azithromycin 500 mg p.o. 3 times a week. 10/12 Patient wore hospital BiPAP rate 4, 14/, 30% with saturat
--- NOTE | 2020-10-13 13:14 | PC.NURSE ---
On 10/13/20, the student, [ Maeve Delgado], provided care and completed [employer] documentation on this patient. I have reviewed the student's documentation and agree with the findings.
[2020-10-13] MEDS: RIVAROXABAN 20 MG TABLET PO (16:28)
[2020-10-13] MEDS: guaiFENesin/DEXTROMETHORPHAN 10 ML UDC PO ×2 (16:54→22:41)
[2020-10-14] VITALS (13 sets, daily range): BP systolic 130; BP diastolic 62; PULSE 81–114; RESP 20; TEMP 36.4; O2SAT 86–98
[2020-10-14] MEDS: IPRATROPIUM BR 0.02% INH SOLN 0.5 MG/2.5 ML VIAL INHALATION ×2 (02:07→08:12)
[2020-10-14] MEDS: ALBUTEROL SULFATE NEB 2.5 MG/0.5 ML INH INHALATION ×2 (02:08→08:12)
[2020-10-14] MEDS: ACETAMINOPHEN 325 MG TABLET 650 MG PO ×2 (04:08→12:38)
[2020-10-14] MEDS: ALPRAZolam (*CRX) 0.5 MG TABLET PO ×2 (04:10→12:38)
[2020-10-14 04:31] LABS: Alveolar/Arterial O2 Gradient 80.9 mmHg; Base Excess ABG 4.2 mEq/l (+/-2.0); Fractional Inspired Oxygen 32 %; HCO3 ABG 29.4 mEq/l (22.0-26.0); Oxygen Content ABG 13.3 %vol (16.0-22.0); Oxyhemoglobin 95.8 % THb (90.0-100.0); PCO2 ABG 47.4 mmHg (35.0-45.0); PO2 ABG 91.8 mmHg (80.0-100.0); PO2 FiO2 Ratio Arterial Blood 2.87 %; Total Hemoglobin 9.8 g/dL (12.0-18.0); pH ABG 7.411 (7.350-7.450)
[2020-10-14 04:32] LABS: Device BIPAP; Modified Allen's Test Pass; Site Drawn RIGHT RADIAL
[2020-10-14 04:34] LABS: Expiratory Pressure 6 cmH2O; Inspiratory Pressure 14 cmH2O
[2020-10-14] MEDS: guaiFENesin/DEXTROMETHORPHAN 10 ML UDC PO (06:09)
[2020-10-14] MEDS: predniSONE 20 MG TABLET 40 MG PO (08:06)
[2020-10-14] MEDS: VENLAFAXINE HCL XR 75 MG CAP.ER.24H 150 MG PO (08:06)
[2020-10-14] MEDS: PHENYTOIN SODIUM 100 MG CAP PO ×2 (08:07→12:38)
[2020-10-14] MEDS: FERROUS SULFATE 324 MG TABLET PO (08:07)
[2020-10-14] MEDS: lisinopriL 20 MG TABLET PO (08:07)
[2020-10-14] MEDS: lamoTRIgine 100 MG TABLET PO (08:07)
[2020-10-14] MEDS: THERAPEUTIC MULTIVITAMINS/MINERALS TAB (*BKC) 1 TABLET PO (08:07)
[2020-10-14] MEDS: PANTOPRAZOLE 40 MG TABLET PO (08:07)
[2020-10-14] MEDS: NICOTINE (*PBKC) 14 MG PATCH 1 PATCH TRANSDERM (08:07)
[2020-10-14] MEDS: GABAPENTIN 300 MG CAPSULE PO ×2 (08:07→12:38)
[2020-10-14] MEDS: BUDESONIDE RESPULE NEB 0.5 MG/2 ML AMP INHALATION (08:12)
[2020-10-14 08:42] LABS: Phenytoin Dilantin Free <0.5 mg/L (1.0-2.0)
--- NOTE | 2020-10-14 08:56 | PM.PNPUL ---
Progress Note: A&P Assessment and Plan (1) Tobacco dependence: Code(s): F17.200 - Nicotine dependence, unspecified, uncomplicated Status: Chronic Assessment and Plan: Patient continues to smoke 6 cigarettes per day. It should be noted that on prior admissions she and family were told that she will continue to have respiratory illnesses as long as she continues to smoke. I will readdress this with the family once I can reach them. I have attempted to call the family twice with no response. She has been given nicotine patches in the past. 10/12 called family twice and left message to call back. I told family that they need to withdrawal all tobacco pfrom patient. 10/14 I reinforced to the patient that she must quit smoking and that the family has agreed not to give her anymore cigarettes. (2) Acute on chronic respiratory failure with hypoxia and hypercapnia: Code(s): J96.21 - Acute and chronic respiratory failure with hypoxia; J96.22 - Acute and chronic respiratory failure with hypercapnia Status: Acute Assessment and Plan: 10/11 Patient with 6 admissions in the last 6 months for acute on chronic hypercarbic and hypoxemic respiratory failure. Patient's most recent blood gas on discharge from 09/29/2020 on 3 L was 7.34/60/69. This admission patient was placed on BiPAP 16/8 30% and her repeat blood gas was 7.45/53/73. The setting seem appropriate for now and will continue the settings with sleep. Will need to determine patient's DME company and get a recent download and her most recent home settings. Will need to check compliance from the most recent download. I will talk to the family and see if they can bring her home machine in for use in the hospital. 10/12 Waiting to hear from our RT division regarding who her DME is to obtain recent download. 10/13 Patient's family did bring in her home trilogy machine her settings are RR 12, tidal volume 325, EPAP Min 4, EPAP max 10 PS min for PS max 25 with 3 L bleed in. On examination of the machine I notice that the oxygen bleed in adapter was broken and I called Angela from [facility] and it appears the patient could not have been given 3 L bleed in at home. Angela came to the hospital later today and repaired bleed in adapter, give the patient new mask, and patient tolerated increase in TV to only 350. Download from 08/18 use only 4 days and average time used on these 4 days 1.2 hours. Current settings: RR 12, tidal volume 350, EPAP Min 4, EPAP max 10 PS min for PS max 25 with 3 L bleed in. Will check Apnea ling on home machine and 3 L bleed in and ABG prior to removal of machine in morning. 10/14 Patient wore her home AVAPS AE with 3 L bleed in last night and had an overnight oximetry. Average saturation was 97%. Lowest saturation 86%. Time with saturations less than or equal to 88% was 0 minutes. Patient had a blood gas this morning while on her home Xiomy abscess settings of 7.41/47/92. Adequate ventilation and oxygenation on these settings. Home care to visit patient on 10/16. (3) Obstructive sleep apnea: Code(s): G47.33 - Obstructive sleep apnea (adult) (pediatric) Status: Acute Assessment and Plan: 10/11 The chart lists that the patient has obstructive sleep apnea. I have no sleep study in the laboratory in our laboratory currently will talk to the family regarding this diagnosis none the less patient will need to be continued on noninvasive ventilation at night for her severe COPD with hypoxemic and hypercarbic respiratory failure. 10/13 Use home machine tonight. 10/14 Adequate Oxygenation and ventilation on current settings. (4) Emphysema/COPD: Code(s): J43.9 - Emphysema, unspecified Status: Acute Assessment and Plan: Patient on home oxytgen 3 L, home CPAP or noninvasive ventilation and pulmoanry hypertension of 47 by echo on 06/23/2020. 6th admission since 04/19/2020. 10/11 Patient with tobacco use and COPD per
--- NOTE | 2020-10-14 10:58 | PM.DS ---
DS: Admitting Diagnosis Admitting Diagnosis Admitting Diagnosis: Shortness of breath DS: Discharge Diagnosis Discharge Diagnosis (1) Confusion: Code(s): R41.0 - Disorientation, unspecified Status: Acute Assessment and Plan: Patient had recurrent admission to the hospital most likely altered mental status related to COPD noncompliance probable history of smoking and marijuana abuse CO2 narcosis patient also on narcotic and benzodiazepine DC narcotics Counseling MRI of the brain shows small area in the ousmane that could be small vessel disease for versus myelinolysis follow-up with neurology as outpatient no significant neurological finding on exam PCP to address follow-up with neurology as outpatient (2) Chronic respiratory failure with hypoxia and hypercapnia: Code(s): J96.11 - Chronic respiratory failure with hypoxia; J96.12 - Chronic respiratory failure with hypercapnia Status: Acute Assessment and Plan: Compensated follow-up with pulmonology as outpatient. (3) Anxiety: Code(s): F41.9 - Anxiety disorder, unspecified Status: Acute Assessment and Plan: Could be contributing to her underlying symptoms. She also has alprazolam at home which could cause mental status changes if she was abusing this (same for her narcotics but UDS negative for opioids - Continue Effexor. Continue to monitor. (4) Chronic hyponatremia: Code(s): E87.1 - Hypo-osmolality and hyponatremia Status: Acute Assessment and Plan: Mild hyponatremia most likely related to COPD monitor. CMP in 1 week (5) Emphysema/COPD: Code(s): J43.9 - Emphysema, unspecified Status: Acute Assessment and Plan: As above. This is part of the etiology of her chronic respiratory failure. Chest CT reviewed showed emphysema significant finding (6) Hypertension: Code(s): I10 - Essential (primary) hypertension Status: Inactive Assessment and Plan: Continue home medication. (7) Tobacco dependence: Code(s): F17.200 - Nicotine dependence, unspecified, uncomplicated Status: Chronic Assessment and Plan: Counseling. (8) Chronic diastolic heart failure: Code(s): I50.32 - Chronic diastolic (congestive) heart failure Status: Chronic Assessment and Plan: Stable avoid fluid overload Lasix on hold. (9) Seizures: Code(s): R56.9 - Unspecified convulsions Status: Acute Assessment and Plan: Patient has underlying seizure disorder. Continue antiseizure medications. Continue seizure precautions. MRI of the brain as above. (10) Obstructive sleep apnea: Code(s): G47.33 - Obstructive sleep apnea (adult) (pediatric) Status: Acute Assessment and Plan: As above. Appreciate Pulmonary input. 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 On Xarelto at home which has been continued. Follow-up with PCP to address DS: Summary Hospital Course Hospital Course: Patient was presented to the hospital shortness of breath and altered mental status was found to have COPD exacerbation probably polypharmacy MRI the brain shows some anomaly vascular anomaly versus myelinolysis patient is alert oriented x3 follow-up with neurology as outpatient follow-up with pulmonology as outpatient her condition significantly improved follow-up with PCP for follow-up to be arranged with neurology and also medication adjustment as patient has polypharmacy Time Spent with Patient Time attestation: Total time spent providing and/or coordinating discharge services: Exam Narrative: Exam Narrative: Alert Chest decreased air entry bilateral Abdomen nontender nondistended CVS S1 + S2 Lower extremity edema DS: Data Data Completed and Pen
--- NOTE | 2020-10-14 11:58 | HOMEO2EVAL ---
Home Oxygen Evaluation RC: Home Oxygen (O2) Evaluation Start: 10/14/20 08:51 Freq: ONCE Status: Active Protocol: RPE Activity Type Activity Date Activity User E-Sign Co-Sign Detail Recorded Client Recorded Date Recorded By Document 10/14/20 10:30 [email or web address] [email or web address] 10/14/20 11:58 DJO Document 10/14/20 10:35 [email or web address] [email or web address] 10/14/20 11:58 DJO Document 10/14/20 10:40 [email or web address] [email or web address] 10/14/20 11:58 DJO Document 10/14/20 10:45 [email or web address] [email or web address] 10/14/20 11:58 DJO Document 10/14/20 11:00 [email or web address] [email or web address] 10/14/20 11:58 DJO 10/14/20 10/14/20 10/14/20 10:30 10:35 10:40 Home O2 Evaluation Test Phase Resting Exercise Exercise Oxygen Delivery Room Air Room Air Nasal Cannula Oxygen Flow Rate (L/min) 1 Pulse Oximetry (90-100 %) 92 86 L 87 L Pulse Rate (60-100 beats/min) 102 H 110 H 112 H Activity Tolerance Treatment Charges O2 Evaluation - Inpatient 10/14/20 10/14/20 10:45 11:00 Home O2 Evaluation Test Phase Exercise Resting Oxygen Delivery Nasal Cannula Room Air Oxygen Flow Rate (L/min) 2 Pulse Oximetry (90-100 %) 90 92 Pulse Rate (60-100 beats/min) 111 H 100 Activity Tolerance Good Treatment Charges
--- NOTE | 2020-10-14 11:59 | PCRCNOTE ---
HOME O2 WITH [facility]. PHONE NUMBER [phone]. THEY ARE TO DELIVER A TANK TO PT'S ROOM TODAY
--- NOTE | 2020-10-14 12:05 | HOMEO2EVAL ---
Home Oxygen Evaluation RC: Home Oxygen (O2) Evaluation Start: 10/14/20 08:51 Freq: ONCE Status: Active Protocol: RPE Activity Type Activity Date Activity User E-Sign Co-Sign Detail Recorded Client Recorded Date Recorded By Document 10/14/20 10:30 [email or web address] [email or web address] 10/14/20 11:58 DJO Document 10/14/20 10:35 [email or web address] [email or web address] 10/14/20 11:58 DJO Document 10/14/20 10:40 [email or web address] [email or web address] 10/14/20 11:58 DJO Document 10/14/20 10:45 [email or web address] [email or web address] 10/14/20 11:58 DJO Document 10/14/20 10:50 [email or web address] [email or web address] 10/14/20 12:05 DJO Document 10/14/20 11:00 [email or web address] [email or web address] 10/14/20 11:58 DJO 10/14/20 10/14/20 10/14/20 10:30 10:35 10:40 Home O2 Evaluation Test Phase Resting Exercise Exercise Oxygen Delivery Room Air Room Air Nasal Cannula Oxygen Flow Rate (L/min) 1 Pulse Oximetry (90-100 %) 92 86 L 87 L Pulse Rate (60-100 beats/min) 102 H 110 H 112 H Activity Tolerance Treatment Charges O2 Evaluation - Inpatient 10/14/20 10/14/20 10/14/20 10:45 10:50 11:00 Home O2 Evaluation Test Phase Exercise Exercise Resting Oxygen Delivery Nasal Cannula Nasal Cannula Room Air Oxygen Flow Rate (L/min) 2 3 Pulse Oximetry (90-100 %) 87 L 90 92 Pulse Rate (60-100 beats/min) 111 H 114 H 100 Activity Tolerance Good Treatment Charges
--- NOTE | 2020-10-14 13:32 | PC.NURSE ---
Home medications returned to patient.
== END 2020-10-14 13:54 | disposition home or self-care (01) | DRG 191 ==
LOC: ANHED 15:35 → ANHIMU 21:51 → ANH2MED 10-13 14:41 → ANHIMU 10-19 13:45
PROVIDERS: Internal Medicine; Internal Medicine Pulmonary Disease; Physician Assistant; Admitting Provider Family Medicine; Emergency Provider Emergency Medicine; PCP Internal Medicine; Visit Provider Internal Medicine
DX: J43.2 Centrilobular emphysema (principal); J96.11 Chronic respiratory failure with hypoxia; J96.12 Chronic respiratory failure with hypercapnia; E87.1 Hypo-osmolality and hyponatremia; I50.32 Chronic diastolic (congestive) heart failure; R41.0 Disorientation, unspecified; I11.0 Hypertensive heart disease with heart failure; Z99.81 Dependence on supplemental oxygen; F17.210 Nicotine dependence, cigarettes, uncomplicated; G47.33 Obstructive sleep apnea (adult) (pediatric); E78.5 Hyperlipidemia, unspecified; F41.8 Other specified anxiety disorders; G89.4 Chronic pain syndrome; G62.9 Polyneuropathy, unspecified; G40.909 Epilepsy, unspecified, not intractable, without status epilepticus; Z79.01 Long term (current) use of anticoagulants; Z79.899 Other long term (current) drug therapy; Z86.718 Personal history of other venous thrombosis and embolism; Z88.0 Allergy status to penicillin; Z91.19 Patient's noncompliance with other medical treatment and regimen
CPT/HCPCS: 36415; 36600; 51701; 70450; 70553; 71045; 71275; 80048; 80053; 80186; 80307; 81001; 82140; 82375; 82607; 82805; 82948; 83050; 83735; 83880; 84295; 84443; 85025; 85027; 85380; 85610; 85730; 93970; 94002; 94003; 94618; 94640; 94762; 97161; 97165; 99291; A9270; A9577; J2060; J2930; J7040; J7120; J7512; Q9967

== ENCOUNTER 2020-10-26 02:35 | Inpatient (IN) | payer MEDICARE, MEDICAID, SELFPAY ==
[2020-10-26] VITALS (130 sets, daily range): BP systolic 38–154; BP diastolic 24–94; PULSE 75–106; RESP 11–33; TEMP 34.5–36.6; O2SAT 62–100; BMI 28.8
--- NOTE | ~2020-10-26 | CT_ITS ---
EXAMINATION: CT brain wo con DATE: 10/26/2020 05:43 INDICATION: Postcardiac arrest. TECHNIQUE: Computed tomography (CT) of the head was performed without intravenous contrast. Sagittal and coronal reconstructions were performed. The mA was adjusted according to patient size. Iterative reconstruction technique was employed. The dose-length product was 605.33 mGy-cm. COMPARISON: head CT dated 10/10/2020 and MRI dated 10/12/2020 FINDINGS: No acute intracranial hemorrhage, acute infarction or abnormal extra axial fluid collection. There is mild scattered white matter hypoattenuation consistent with chronic small vessel ischemic disease. V entricles are normal and symmetric. No mass/mass effect. The orbits, paranasal sinuses and mastoid a ir cells are normal. IMPRESSION: 1. No acute intracranial process. 2. Stable appearance of mild nonspecific cerebral white matter hypoattenuation consistent with chroni c small vessel ischemic disease. Reviewed, dictated and finalized at location A. ECTION SYSTEMS CONSULTANT IMPRESSION: 1. No acute intracranial process. 2. Stable appearance of mild nonspecific cerebral white matter hypoattenuation consistent with chronic small vessel ischemic disease.
--- NOTE | ~2020-10-26 | XR_ITS ---
EXAMINATION: XR chest ET placement, XR abdomen NG/feed tube insert DATE: 10/26/2020 03:17 INDICATION: Cardiac arrest. Endotracheal tube placement and orogastric tube placement. TECHNIQUE: 1. Frontal view of the chest was obtained. 2. Portable AP supine view of the abdomen and pelvis was obtained. COMPARISON: Chest radiograph dated 10/10/[address] dated 10/11/2020 FINDINGS: Chest : Endotracheal tube tip 4.3 cm above the hector. Diffuse bilateral bronchial wall thickening. No focal airspace opacities, pleural effusion or pneumothorax. The cardiomediastinal silhouette is normal. Abdomen: Orogastric tube tip in the body of the stomach with proximal side-port just below the level of the ga stroesophageal junction. Gas and moderate amount of stool scattered throughout the colon which demons trates a relatively ahaustral pattern along the transverse colon. There are a few gas-filled but not frankly dilated loops of small bowel. Right femoral central venous catheter with distal tip projectin g over the right common iliac vein. IMPRESSION: 1. Diffuse mild bronchial wall thickening consistent with bronchitis. 2. Emphysema better appreciated on prior CT 3. Endotracheal tube and orogastric tubes in expected positions. Reviewed, dictated and finalized at location A. 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 Diffuse mild bronchial wall thickening consistent with bronchitis. 2. Emphysema better appreciated on prior CT 3. Endotracheal tube and orogastric tubes in expected positions.
--- NOTE | 2020-10-26 02:38 | PC.NURSE ---
pt to ED, Igel in place, I/O to left lower leg. defib pads placed. pt bagged at appropriate rate.
--- NOTE | 2020-10-26 02:41 | PC.NURSE ---
7.5 ETT placed 23cm at the lips. + color change.
[2020-10-26] MEDS: NOREPINEPHRINE 8 MG/D5W 250 ML 8 MG/250 ML BAG 28.13 MG IV CONT (02:47)
--- NOTE | 2020-10-26 02:47 | PC.NURSE ---
levophed running at 15mcg/min.
--- NOTE | 2020-10-26 02:49 | PC.NURSE ---
triple lumen central line placed to right femoral. blood return noted. caps changed.
--- NOTE | 2020-10-26 02:53 | PC.NURSE ---
levophed increased to 50mcg/min per dr duran.
--- NOTE | 2020-10-26 02:56 | ECG_ITS ---
Measurements Intervals [place] Rate: 93 P: 90 IL: 165 QRS: 83 QRSD: 110 T: 78 QT: 341 QTc: 425 Interpretive Statements SINUS RHYTHM ATRIAL TRIPLETS AND ATRIAL PREMATURE COMPLEX INCOMPLETE RIGHT BUNDLE BRANCH BLOCK ABNORMAL ECG Electronically Signed On 10-26-2020 6:53:15 AUTO RADIATOR MECHANIC by Jovan Quintanilla D.O.
--- NOTE | 2020-10-26 03:00 | ED.GENADULT ---
HPI - General Adult General Chief complaint: Cardiac Arrest/CPR Stated complaint: Post cardiac arrest Time Seen by Provider: 10/26/20 02:55 History of Present Illness HPI narrative: Patient is a 59-year-old female who presents the emergency department with chief complaint of cardiac arrest. Patient apparently was getting up to go to the bathroom and was found slumped over after the family heard a thud EMS was called and the patient was found unresponsive initially asystole. ACLS protocols were initiated by EMS and after receiving epinephrine and sodium bicarbonate by EMS the patient had return of spontaneous circulation. Upon arrival to the emergency department the patient had a LMA type airway in place patient had an intact pulse and was extremely hypotensive. Airway was secured and a femoral central line was placed. Related Data Home Medications Medication Instructions Recorded Confirmed Xarelto 20 mg PO DAILY 08/26/19 10/10/20 albuterol sulfate 2.5 mg INHALATION TID 08/26/19 10/10/20 venlafaxine [Effexor XR] 150 mg PO DAILY 08/26/19 10/10/20 lamotrigine 100 mg PO BID 04/19/20 10/10/20 furosemide 40 mg PO DAILY 07/14/20 10/10/20 lisinopril 20 mg PO DAILY 07/14/20 10/10/20 albuterol sulfate 2 puff INHALATION QID PRN 09/26/20 10/10/20 pantoprazole 40 mg PO DAILY 09/26/20 10/10/20 phenytoin sodium extended 100 mg PO TID 09/26/20 10/10/20 Adult One Daily Multivitamin 1 tablet PO DAILY 10/10/20 10/10/20 ferrous sulfate [iron] 325 mg PO DAILY 10/10/20 10/10/20 Allergies Allergy/AdvReac Type Severity Reaction Status Date / Time Penicillins Allergy Mild itching Verified 10/10/20 20:30 Review of Systems Review of Systems: ROS unobtainable: Yes unobtainable due to endotracheal tube and unobtainable due to medical condition PMFSH Past Medical History Medical History Arthritis Asthma Chronic diastolic heart failure Chronic hyponatremia Chronic pain syndrome Chronic respiratory failure with hypoxia and hypercapnia Coronary artery disease Poorly documented. Current use of custodial anticoagulation Depression with anxiety Emphysema/COPD History of deep vein thrombosis On chronic anticoagulation with Xarelto. 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 Hyperlipidemia Hypertension Obstructive sleep apnea Not 100% compliant with CPAP. Peripheral neuropathy Pneumonia Seizures Tobacco dependence Surgical History Surgical History History of section x2. Family History Family History Other Acute myocardial infarction Cerebrovascular accident Diabetes mellitus Hypertension Social History Social History Social History: The patient is and lives with her daughter and her daughter's boyfriend in [place]. She is on disability. She smoked up to 2 to 3 packs of cigarettes a day for many years and continues to smoke perhaps a half a pack a day. She had problems with alcohol in the past and has attended AA meetings. Smokes marijuana weekly. Primary care physician: Dr. Sheldon Cantrell Code status: Full code. She had previously wish to be a modified code, do not intubate however was intubated during a stay in the fall. Durable power of tax associate attorney: Daughter Ebony Hall. 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 Gender identity (if verbalized by the patient): Female Spiritual care concerns: No Agree to blood products: No Exam Na
[2020-10-26 03:07] LABS: Basophils Absolute Auto 0.1 K/mm3 (0.0-0.1); Basophils Percent Auto 0.4 % (0.2-1.2); Eosinophils Absolute Auto 0.1 K/mm3 (0-0.3); Eosinophils Percent Auto 0.4 % (0-4.4); Hematocrit 42.1 % (37.0-47.0); Hemoglobin 11.6 g/dL (12.0-15.0); Immature Granulocyte Absolute 0.59 K/mm3 (0.00-0.031); Lymphocytes Absolute Auto 4.49 K/mm3 (0.9-3.2); Lymphocytes Percent Auto 37.9 % (18.3-44.2); Mean Corpuscular HGB Conc 27.6 g/dl (32-36); Mean Corpuscular Hemoglobin 27.4 pg (26-34); Mean Corpuscular Volume 99.3 fl (80-100); Mean Platelet Volume 9.9 fl (7.4-10.4); Monocytes Absolute Auto 0.4 K/mm3 (0.1-0.6); Monocytes Percent Auto 3.5 % (2.6-8.5); Neutrophils Absolute Auto 6.3 K/mm3 (1.3-6.7); Neutrophils Percent Auto 52.8 % (45.5-73.1); Nucleated Red Blood Cells Absolute Auto 0.1 K/mm3 (0.0-0.012); Nucleated Red Blood Cells Perc 0.5 % (0.0-0.2); Platelet Count Result 318 k/mm3 (150-375); Red Blood Count 4.24 M/mm3 (4.2-5.4); Red Cell Distribution Width 13.3 % (11.5-14.5); White Blood Count 11.8 K/mm3 (4.5-10.0)
[2020-10-26 03:20] LABS: Alanine Aminotransferase 177 U/L (4-35); Albumin Level 3.4 g/dL (3.5-5.1); Alkaline Phosphatase 146 U/L (38-126); Anion Gap 11 mmol/L (8-16); Aspartate Amino Transferase 346 U/L (14-36); Bilirubin,Total 0.2 mg/dL (0.2-1.3); Blood Urea Nitrogen 22 mg/dL (7-17); Calcium 8.2 mg/dL (8.4-10.2); Carbon Dioxide 28 mmol/L (22-30); Chloride 92 mmol/L (98-107); Estimated Glomerular Filt Rate 46; Glucose 326 mg/dL (65-105); Magnesium 2.3 mg/dL (1.6-2.3); Potassium 4.8 mmol/L (3.4-5.0); Sodium 131 mmol/L (137-145)
[2020-10-26] MEDS: SODIUM CHLORIDE 0.9% IV 1,000 ML 999 ML IV CONT ×2 (03:26→04:08)
[2020-10-26 03:28] LABS: INR 1.2; Prothrombin Time 15.8 Seconds (11.1-14.7)
[2020-10-26 03:29] LABS: Partial Thromboplastin Time 36.7 SECONDS (22.3-36.8)
[2020-10-26 03:33] LABS: Alveolar/Arterial O2 Gradient 110.6 mmHg; Base Excess ABG -9.5 mEq/l (+/-2.0); Fractional Inspired Oxygen 100 %; HCO3 ABG 25.1 mEq/l (22.0-26.0); Oxygen Content ABG 19.8 %vol (16.0-22.0); Oxygen Saturation ABG 99.7 % (95.0-100.0); Oxyhemoglobin 97.4 % THb (90.0-100.0); PO2 ABG 487.9 mmHg (80.0-100.0); PO2 FiO2 Ratio Arterial Blood 4.88 %; Total Hemoglobin 13.5 g/dL (12.0-18.0)
[2020-10-26 03:34] LABS: pH ABG 6.958 (7.350-7.450)
[2020-10-26 03:35] LABS: Arterial Blood Gas Vent Mode CMV; Arterial Blood Gas Ventilator rate 18 /MIN; Device VENTILATOR; Modified Allen's Test Pass; PCO2 ABG 114.5 mmHg (35.0-45.0); Site Drawn RIGHT RADIAL
[2020-10-26 03:36] LABS: Arterial Blood Gas PEEP 5 cmH2O; Arterial Blood Gas Tidal Volume 400 ml
[2020-10-26 03:36] LABS: Lactic Acid Reflex 9.3 mmol/L (0.7-2.1)
[2020-10-26] MEDS: SODIUM BICARBONATE 8.4% 50 MEQ/50 ML SYRINGE IV PUSH (03:41)
[2020-10-26 03:46] LABS: NT Pro B Type Natriuretic Pept 402 PG/ML (5-100); Troponin I 0.035 ng/mL (0.000-0.034)
[2020-10-26] MEDS: SODIUM BICARBONATE 8.4% 150 MEQ in DEXTROSE 5% 1,000 ML 950 ML 50 MEQ IV CONT (04:05)
[2020-10-26 04:06] LABS: Add Urine Microscopic? NO; Appearance Urine Clear (Clear); Bilirubin Urine Negative (Negative); Blood Urine Negative (Negative); Color Urine Straw (Yellow); Glucose Urine UA Negative (Negative); Ketones Urine Negative (Negative); Leukocyte Esterase Ur Negative LEU/UL (Negative); Nitrate Urine Negative (Negative); Protein Urine Negative (Negative); Urobilinogen Urine Negative mg/dL (<2.0)
[2020-10-26] MEDS: EPINEPHrine INJ 1 MG in DEXTROSE 5% IN WATER 250 ML 15.06 MG IV CONT (04:07)
[2020-10-26 04:13] LABS: Bacteria Urine Trace /hpf; Squamous Epithelial Cell Urine Occasional /hpf (Few); WBC Urine 0-3 /hpf
--- NOTE | 2020-10-26 04:39 | PC.NURSE ---
MD aware of pt's O2 sat and hypotension. MD also aware of current vasoactive medication titration levels. RT also aware of low O2 sat and states, I don't believe it
[2020-10-26] MEDS: VASOPRESSIN INJ 100 UNITS in DEXTROSE 5% 95 ML IV CONT (04:52)
[2020-10-26 04:59] LABS: Alveolar/Arterial O2 Gradient 180.8 mmHg; Base Excess ABG -7.7 mEq/l (+/-2.0); Fractional Inspired Oxygen 50 %; HCO3 ABG 25.1 mEq/l (22.0-26.0); Oxygen Content ABG 16.3 %vol (16.0-22.0); PO2 ABG 67.5 mmHg (80.0-100.0); PO2 FiO2 Ratio Arterial Blood 1.35 %; Total Hemoglobin 13.3 g/dL (12.0-18.0)
[2020-10-26 05:00] LABS: PCO2 ABG 96.2 mmHg (35.0-45.0); pH ABG 7.034 (7.350-7.450)
[2020-10-26 05:01] LABS: Device VENTILATOR; Modified Allen's Test Pass; Oxygen Saturation ABG 82.1 % (95.0-100.0); Site Drawn RIGHT RADIAL
[2020-10-26 05:02] LABS: Arterial Blood Gas PEEP 5 cmH2O; Arterial Blood Gas Tidal Volume 400 ml; Arterial Blood Gas Vent Mode CMV; Arterial Blood Gas Ventilator rate 22 /MIN
--- NOTE | 2020-10-26 05:44 | PC.NURSE ---
pt back from CT.
[2020-10-26 06:02] LABS: Reflex Lactic Acid Yes or No Add Lactic
[2020-10-26] MEDS: EPINEPHrine INJ 1 MG in DEXTROSE 5% IN WATER 250 ML 150.6 MG IV CONT (06:15)
--- NOTE | 2020-10-26 06:30 | ECG_ITS ---
Measurements Intervals [place] Rate: 90 P: CT: 0 QRS: 80 QRSD: 92 T: 90 QT: 328 QTc: 402 Interpretive Statements SINUS RHYTHM ATRIAL PREMATURE COMPLEXES BASELINE ARTIFACT- I, III, AVR, AVL, V1 BORDERLINE ECG Electronically Signed On 10-26-2020 14:11:57 CELLOPHANE WORKER by Jovan Quintanilla D.O.
--- NOTE | 2020-10-26 06:38 | PM.IMHP ---
H&P: HPI History of Present Illness Date/Time: 10/26/20 05:20 Chief Complaint: Cardiac arrest Narrative: Mary Alice Hall is a 59 year old female well known to the hospitalist service with a complex past medical history including diastolic congestive heart failure, obstructive sleep apnea, COPD and chronic hypoxic hypercarbic respiratory failure with multiple prior intubations who presented to the ER via EMS after cardiac arrest. The patient had evidently went to the bathroom at home and her daughter heard a loud thump. When the went into the bathroom they found the patient unresponsive on the bathroom floor. Services was called in police department arrived in began compressions. When EMS arrived to the scene the patient was in asystole. She received a total of 5 rounds of epinephrine and an amp of sodium bicarbonate. The patient had return of [place] prior to arrival in the ER. An LMA had been placed in the field. The patient's exact down time is unknown. The time from EMS arrival in the scene to arrival to the ER was 50 minutes. Was the patient arrived in the ER she was hypotensive a femoral line was placed by ER staff and the patient was intubated. The patient was hypotensive in markedly hypercarbic on initial labs. She was initiated on Levophed vasopressin and epinephrine after receiving 2 L of IV fluid hydration. At the time of my evaluation the patient was maximized on vasopressin Levophed and epinephrine was at 80% maximum. Patient's blood pressures had finally stabilized at 93/69. The patient had low oxygen saturations on pulse oximeter but patient had poor perfusion. Pulse ox readings were 72% on ABG pulse ox was 82%. Patient was on AC/CMV tidal volume 400 rate 22 peep of 5. The patient's ABG is improving on current ventilator settings. She had a Martínez catheter placed in the ER. On arrival to the ER the patient's pupils were dilated and nonreactive but are now pinpoint and not reactive. She had a CT scan of the head performed which demonstrated no acute intercranial process per preliminary interpretation. The patient was already passively cooled in her temperature is 94.1?. Review of Systems Review of Systems: ROS unobtainable: Yes unobtainable due to endotracheal tube PMFSH Past Medical History Medical History Arthritis Asthma Chronic diastolic heart failure Chronic hyponatremia Chronic pain syndrome Chronic respiratory failure with hypoxia and hypercapnia Coronary artery disease Poorly documented. Current use of senior care anticoagulation Depression with anxiety Emphysema/COPD History of deep vein thrombosis On chronic anticoagulation with Xarelto. 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 Hyperlipidemia Hypertension Obstructive sleep apnea Not 100% compliant with CPAP. Peripheral neuropathy Pneumonia Seizures Tobacco dependence Surgical History Surgical History History of section x2. Family History Family History Other Acute myocardial infarction Cerebrovascular accident Diabetes mellitus Hypertension Social History Social History (Updated 10/26/20 @ 06:58 by Nelsy Sampson DO) Social History: The patient is and lives with her daughter and her daughter's boyfriend in [place]. She is on disability. She smoked up to 2 to 3 packs of cigarettes a day for many years and continues to smoke perhaps a half a pack a day. She had problems with alcohol in the past and has attended AA meetings. Smokes marijuana weekly. Primary care physician: Dr. Sheldon Cantrell Code status: Full code. She had previously wish to be a modified code, do not intubate however was intubated during a stay in the fall. Durable power of instrumentation technician: Daughter Ebony Hall. Smoking packs per day: 1.5 Smoking
[2020-10-26 06:59] LABS: Alveolar/Arterial O2 Gradient 342.3 mmHg; Base Excess ABG -6.1 mEq/l (+/-2.0); Carboxyhemoglobin 1.6 % THb (0-2.0); Fractional Inspired Oxygen 75 %; HCO3 ABG 28.5 mEq/l (22.0-26.0); Methemoglobin ABG 0.2 %THb (0-1.5); Oxygen Content ABG 15.8 %vol (16.0-22.0); Oxyhemoglobin 83.8 % THb (90.0-100.0); PO2 ABG 61.8 mmHg (80.0-100.0); PO2 FiO2 Ratio Arterial Blood 0.82 %; Reduced Hemoglobin 14.4 %THb (0-5.0); Total Hemoglobin 13.4 g/dL (12.0-18.0)
[2020-10-26 07:04] LABS: Arterial Blood Gas Vent Mode CMV; Arterial Blood Gas Ventilator rate 22 /MIN; Device VENTILATOR; Modified Allen's Test Pass; Oxygen Saturation ABG 74.7 % (95.0-100.0); Site Drawn RIGHT RADIAL; pH ABG 6.983 (7.350-7.450)
[2020-10-26 07:05] LABS: Arterial Blood Gas PEEP 5 cmH2O; Arterial Blood Gas Tidal Volume 400 ml
[2020-10-26 07:08] LABS: INR 1.2
[2020-10-26] MEDS: methylPREDNISolone SOD SUCC 125 MG VIAL IV PUSH (07:08)
[2020-10-26 07:09] LABS: Creatine Kinase 457 U/L (30-135); Magnesium 1.7 mg/dL (1.6-2.3); Partial Thromboplastin Time 33.9 SECONDS (22.3-36.8)
[2020-10-26 07:16] LABS: Amphetamine Screen Urine Positive (Negative); Barbiturate Screen Urine Negative (Negative); Benzodiazepines Screen Urine Positive (Negative); Cannabinoid Screen Urine Negative (Negative); Cocaine Screen Urine Negative (Negative); Methadone Screen Urine Negative (Negative); Opiate Screen Urine Positive (Negative); Phencyclidine Screen Urine Negative (Negative)
--- NOTE | 2020-10-26 07:35 | PC.NURSE ---
Pt. BP 123/92, epi drip titrated down to 8mcg/min
[2020-10-26 07:37] LABS: Lactic Acid Reflex 4.7 mmol/L (0.7-2.1)
--- NOTE | 2020-10-26 08:30 | PC.NURSE ---
This patient, Mary Alice Hall, was admitted to Intensive Care Unit-6. Patient/family oriented to hospital policies and general routines including ID bracelet, bed and alarms, visiting hours, pain management, procedures, bathroom and other care routines, personal items, smoking policy, room service/diet, and visiting hours. Information on how to activate the Rapid Response Team has been discussed. Patient/Family are encouraged to report perceived risks to care and to ask questions if they do not understand what they are told or what they should do.
[2020-10-26] MEDS: EPINEPHrine INJ 1 MG in DEXTROSE 5% IN WATER 250 ML 120.48 MG IV CONT (08:42)
[2020-10-26] MEDS: LORazepam INJ (*CRX) 2 MG/ML VIAL IV PUSH ×2 (08:43→16:27)
[2020-10-26] MEDS: IPRATROPIUM BR 0.02% INH SOLN 0.5 MG/2.5 ML VIAL INHALATION ×2 (08:45→14:13)
[2020-10-26] MEDS: ALBUTEROL SULFATE NEB 2.5 MG/0.5 ML INH 5 MG INHALATION ×2 (08:45→14:13)
--- NOTE | 2020-10-26 09:16 | WPDCNINT ---
Assessment and Plan Assessment and plan (1) Cardiac arrest: Code(s): I46.9 - Cardiac arrest, cause unspecified Status: Acute Assessment and Plan: Cardiac arrest could be related to hypoxia, patient was in asystole per EMS, CPR 5 rounds of epinephrine prior to ROSC. Time from arrival of the EMS to the house to the ER was approximately 50 minutes. According the daughter downtime was not much as she went to the patient's bathroom after she heard a loud thump and found the patient on the floor. -CT brain with no acute intracranial process, stable appearance of miles nonspecific cerebral white matter hypoattenuation consistent with chronic small-vessel ischemia disease -patient already hypothermic with a body temperature of 94? F -discuss with Ebony the patient's daughter who has come into the ICU to further discuss patient's plan of care. -myoclonus of the jaw,, patient unresponsive with no pupil, corneal or gag reflex. (2) Acute and chronic respiratory failure with hypercapnia: Code(s): J96.22 - Acute and chronic respiratory failure with hypercapnia Status: Acute Assessment and Plan: Acute respiratory failure likely related to cardiac arrest could be hypercapnia due to a severe COPD. -patient was intubated in the ER on 10/26/2020 -ABGs and chest x-ray reviewed, patient with significant hypercapnia -ventilator adjusted -continue bronchodilators and antibiotics with (3) Shock: Code(s): R57.9 - Shock, unspecified Status: Acute Assessment and Plan: Shock related to cardiac arrest, cardiogenic, septic, be due to severe metabolic acidosis -currently on Levophed, epinephrine, vasopressin -patient is given adequate fluids in the ER -lactic acid trending down -will add stress dose steroids (4) Acidosis, lactic: Code(s): E87.2 - Acidosis Status: Acute Assessment and Plan: Lactic acid trending down -continue to monitor (5) ELVIRA (acute kidney injury): Code(s): N17.9 - Acute kidney failure, unspecified Status: Acute Assessment and Plan: Acute kidney injury most likely related to hypotension, shock, cardiac arrest -continue monitor urine output, renal function electrolytes Additional Plan Discussed with Ebony who is the daughter and POA and updated her with patient's condition and plan of care. I discussed with her in details regarding patient's condition, her additional history from her daughter. She is planning to come and visit the patient and will decide further plan of care. Code status: Full code Critical care time spent:51 minutes Due to a high probability of clinically significant, life threatening deterioration, the patient required my highest level of preparedness to intervene emergently and I personally spent this critical care time directly and personally managing the patient. This critical care time included obtaining a history; examining the patient; pulse oximetry; ordering and review of studies; arranging urgent treatment with development of a management plan; evaluation of patient's response to treatment; frequent reassessment; and discussions with other providers. It was exclusive of separately billable procedures and treating other patients and teaching time. Please see Assessment and Plan section and the rest of the note for further information on patient assessment and treatment Hanging Flags Decorator Consult Note Consult date: 10/26/20 Time Seen: 08:48 Reason for consult: Cardiac arrest, Acute respiratory failure, metabolic acidosis HPI: Mary Alice Hall is a 59 year old female with PMH of diastolic heart failure, chronic hyponatremia, chronic pain syndrome, chronic respiratory failure, depression and anxiety, chronic pain syndrome, COPD, emphysema, uses 3 L oxygen at home, peripheral neuropathy, seizure tobacco dependence, pneumonia was brought to the ED via EMS with cardiac arrest. I discussed at length with Ebony, patient's daughter and PO
[2020-10-26 10:29] LABS: Glucose Point of Care 280 (65-105)
[2020-10-26] MEDS: EPINEPHrine INJ 4 MG in DEXTROSE 5% IN WATER 250 ML 22.86 MG IV CONT (10:38)
[2020-10-26] MEDS: NOREPINEPHRINE 8 MG/D5W 250 ML 8 MG/250 ML BAG 52.5 MG IV CONT ×2 (10:39→15:30)
[2020-10-26] MEDS: CENTRAL LINE FLUSH 10 ML IV PUSH ×2 (10:40→14:19)
[2020-10-26 11:13] LABS: Alveolar/Arterial O2 Gradient 340.2 mmHg; Base Excess ABG -4.1 mEq/l (+/-2.0); Carboxyhemoglobin 0.6 % THb (0-2.0); Fractional Inspired Oxygen 100 %; HCO3 ABG 28.7 mEq/l (22.0-26.0); Methemoglobin ABG 0.3 %THb (0-1.5); Oxygen Content ABG 18.9 %vol (16.0-22.0); Oxygen Saturation ABG 99.3 % (95.0-100.0); Oxyhemoglobin 98.4 % THb (90.0-100.0); PO2 ABG 270.2 mmHg (80.0-100.0); Reduced Hemoglobin 0.7 %THb (0-5.0); Total Hemoglobin 13.2 g/dL (12.0-18.0)
[2020-10-26 11:14] LABS: PCO2 ABG 102.6 mmHg (35.0-45.0); Site Drawn RIGHT BRACHIAL; pH ABG 7.065 (7.350-7.450)
[2020-10-26 11:15] LABS: Device VENTILATOR
[2020-10-26 11:16] LABS: Arterial Blood Gas PEEP 5 cmH2O; Arterial Blood Gas Tidal Volume 430 ml; Arterial Blood Gas Vent Mode CMV; Arterial Blood Gas Ventilator rate 28 /MIN
[2020-10-26 13:34] LABS: Creatine Kinase 559 U/L (30-135)
[2020-10-26] MEDS: PANTOPRAZOLE SODIUM IV 40 MG VIAL IV PUSH (13:56)
[2020-10-26] MEDS: HYDROCORTISONE SODIUM SUCCINATE 100 MG/2 ML VIAL IV PUSH (13:57)
[2020-10-26] MEDS: MORPHINE SULFATE INJ (*CRX) 10 MG/ML AMP 5 MG IV PUSH (16:27)
--- NOTE | 2020-10-26 19:41 | PC.NURSE ---
Shyla from [facility] called and released due to family refusing donation.
--- NOTE | 2020-10-26 19:54 | PM.DDS ---
Discharge Sum: Prov Provider Primary care physician: Sheldon Cantrell, Admitting provider: Nelsy Sampson DO Consults: 10/26/20 06:28 Consult to Physician Routine Comment: Consulting Provider: Paulino Bean Reason for consultation: status post cardiac arrest Has provider been notified: Yes Pronouncing clinician: Paco Guillen Discharge Sum: Diag PCOD Cardiac arrest from respiratory failure Contributing Factors (1) Cardiac arrest due to respiratory disorder: (2) Acute and chronic respiratory failure with hypercapnia: (3) Shock: (4) Acidosis, lactic: (5) Current use of mechanical product engineer anticoagulation: Discharge Sum: Summary Date and Time Date of admission: 10/26/20 06:27 Date of : 10/26/20 Time of : 16:50 Summary Details: 59-year-old female brought to the emergency room after being resuscitated by EMS for cardiac arrest. Patient was found unresponsive on her bathroom floor and EMS was contacted. Patient was asystolic and exact down time is unknown. Patient was resuscitated brought to the emergency room for evaluation. Patient was stabilized but required maximum therapy with vasopressin, Levophed and epinephrine. She was intubated on mechanical ventilation. She was hypothermic with severe metabolic acidosis. Bicarb drip was started but with persistent acidosis. Family was contacted. The dire condition was explained to the family. They wish to keep her comfortable. Patient was made comfortable and on 10/26/2020. Additional Data Attending physician: Nelsy Sampson DO
== END 2020-10-26 16:50 | disposition expired | DRG 208 ==
LOC: ANHED 06:35 → ANHICU 08:55
PROVIDERS: Internal Medicine; Admitting Provider Internal Medicine; Emergency Provider Emergency Medicine; PCP Internal Medicine; Visit Provider Internal Medicine
DX: J96.22 Acute and chronic respiratory failure with hypercapnia (principal); E87.2 Acidosis; I50.32 Chronic diastolic (congestive) heart failure; R57.9 Shock, unspecified; N17.9 Acute kidney failure, unspecified; E87.1 Hypo-osmolality and hyponatremia; I46.8 Cardiac arrest due to other underlying condition; J43.9 Emphysema, unspecified; F17.210 Nicotine dependence, cigarettes, uncomplicated; I11.0 Hypertensive heart disease with heart failure; G47.33 Obstructive sleep apnea (adult) (pediatric); I25.10 Atherosclerotic heart disease of native coronary artery without angina pectoris; F41.8 Other specified anxiety disorders; E78.5 Hyperlipidemia, unspecified; G62.9 Polyneuropathy, unspecified; G89.4 Chronic pain syndrome; Z28.21 Immunization not carried out because of patient refusal; Z79.01 Long term (current) use of anticoagulants; Z86.718 Personal history of other venous thrombosis and embolism; Z99.81 Dependence on supplemental oxygen
CPT/HCPCS: 31500; 36415; 36556; 36600; 36680; 51702; 70450; 80053; 80307; 81003; 82375; 82550; 82805; 82948; 83050; 83605; 83735; 83880; 84484; 85025; 85610; 85730; 87040; 87077; 87186; 93005; 94640; 96361; 96365; 96366; 96367; 96368; 99291; C1751; C9113; J0171; J0456; J0692; J1720; J2060; J2270; J2930; J3370; J7030; J7060; J7070; J7120